=== PATIENT | male | born 1965 | race Caucasian/White ===

== ENCOUNTER 2019-12-31 09:37 | Emergency (ER) | payer BC, SELFPAY ==
[2019-12-31 09:46] VITALS: BP 134/86; PULSE 71; RESP 20; TEMP 36.2; O2SAT 98
--- NOTE | 2019-12-31 10:22 | ED.EAR ---
HPI - Ear Problem General Chief complaint: Ear Stated complaint: Left ear pain Time Seen by Provider: 12/31/19 10:17 Source: patient and RN notes reviewed Mode of arrival: ambulatory Limitations: no limitations History of Present Illness HPI Narrative: Patient presents today complaining of left ear pain x2 days. He describes the pain as intermittent and stabbing. Denies decreased hearing or drainage. Currently rates his pain 5/10 and has been taking Tylenol with little relief. MD Complaint: ear pain Related Data Allergies Allergy/AdvReac Type Severity Reaction Status Date / Time No Known Allergies Allergy Unverified 09/07/17 14:47 Review of Systems Review of Systems: Narrative: CONSTITUTIONAL: Denies body aches, fever, chills, or sweats. EYES: Denies visual changes, redness, or discharge. ENT: Denies rhinorrhea, congestion, sore throat. + Left ear pain CARDIOVASCULAR: Denies chest pain, palpitations, or edema. RESPIRATORY: Denies cough or dyspnea. GASTROINTESTINAL: Denies abdominal pain, nausea, vomiting, or diarrhea. GENITOURINARY: Denies dysuria or hematuria. SKIN: Denies rash, itching, or wounds. MUSCULOSKELETAL: Denies back pain, joint pain, or myalgia. NEUROLOGIC: Denies headache, numbness, tingling, or weakness. PSYCH: Denies depression or anxiety. PMFSH Comments At time of signature, I have reviewed and agree with nursing past medical, surgical, social and family history unless otherwise noted. Please see nursing chart for further information. There is no relevant family history pertinent to the presenting complaint Exam Narrative: Exam Narrative: GENERAL: Well-appearing, well-nourished, and in no acute distress. HEAD: Normocephalic, atraumatic. EYES: EOMI. No redness or drainage. Conjunctivae normal. ENT: Mucous membranes pink and moist. Right TM and canal normal. Left TM erythematous and bulging with purulent material. NECK: Normal AROM. Supple. No lymphadenopathy. CHEST: No respiratory distress. EXTREMITIES: Normal range of motion. No edema. SKIN: Warm, dry, no rash. Capillary refill normal. Normal skin turgor. NEURO: No focal deficits. Alert and oriented x3. Gait steady. PSYCH: Normal affect. No signs of depression or anxiety. Course Vital Signs Vital signs: Vital Signs Temperature 97.2 F L 12/31/19 09:46 Pulse Rate 71 12/31/19 09:46 Respiratory Rate 20 12/31/19 09:46 Blood Pressure 134/86 12/31/19 09:46 Pulse Oximetry 98 12/31/19 09:46 Temperature 97.2 F L 12/31/19 09:46 Pulse Rate 71 12/31/19 09:46 Respiratory Rate 20 12/31/19 09:46 Blood Pressure 134/86 12/31/19 09:46 Pulse Oximetry 98 12/31/19 09:46 Reviewed. Pt has been instructed to follow up with his PCP regarding his elevated blood pressure today. Medical Decision Making Differential Diagnosis Differential Diagnosis: Otitis media, otitis externa, ruptured TM, serous otitis, eustachian tube dysfunction, cerumen impaction Vital Signs Vital Signs: Vital Signs Temperature 97.2 F L 12/31/19 09:46 Pulse Rate 71 12/31/19 09:46 Respiratory Rate 20 12/31/19 09:46 Blood Pressure 134/86 12/31/19 09:46 Pulse Oximetry 98 12/31/19 09:46 Temperature 97.2 F L 12/31/19 09:46 Pulse Rate 71 12/31/19 09:46 Respiratory Rate 20 12/31/19 09:46 Blood Pressure 134/86 12/31/19 09:46 Pulse Oximetry 98 12/31/19 09:46 Critical Care Time Critical Care Time Critical Care Time: No Discharge Plan Discharge Clinical Impression: Otitis media Qualifiers: Otitis media type: suppurative Chronicity: acute Laterality: left Recurrence: not specified as recurrent Spontaneous tympanic membrane rupture: without spontaneous rupture Qualified Code(s): H66.002 - Acute suppurative otitis media without spontaneous rupture of ear drum, left ear Patient Disposition: Home, Self-Care Condition: Stable Instructions: Antibiotic Form, Ear Infection (ED) Additional Instructions: Please ta
== END 2019-12-31 10:31 | disposition home or self-care (01) ==
PROVIDERS: Emergency Provider Nurse Practitioner
DX: H66.002 Acute suppurative otitis media without spontaneous rupture of ear drum, left ear (principal); I10 Essential (primary) hypertension; E11.9 Type 2 diabetes mellitus without complications; Z79.84 Long term (current) use of oral hypoglycemic drugs
CPT/HCPCS: 99213; G0463

== ENCOUNTER 2022-12-07 17:17 | Emergency (ER) | payer OTHER, SELFPAY ==
--- NOTE | ~2022-12-07 | XR_ITS ---
EXAM: XR foot LT min 3V DATE: 12/07/2022 18:48 HISTORY: pain in bottom of foot . COMPARISON: None available. FINDINGS: Normal mineralization. No fracture or dislocation. No lytic or blastic lesion. Mild scatte red degenerative changes. Achilles and plantar enthesopathy. No erosion or periosteal change. Soft ti ssues within normal limits. IMPRESSION: No acute osseous finding in the left foot. Reviewed, dictated and finalized at location K.
[2022-12-07 17:22] VITALS: BP 150/83; PULSE 67; RESP 18; TEMP 36.5; O2SAT 98
--- NOTE | 2022-12-07 18:05 | ED.GENADULT ---
HPI - General Adult General Chief complaint: Extremity Problem,Nontraumatic <Omid Steel CRISTOFER Ramirez BC - Last Filed: 12/07/22 18:23> Stated complaint: left foot pain <Omid Steel Ashley YANICK CLEVELAND - Last Filed: 12/07/22 18:23> Time Seen by Provider: 12/07/22 18:46 <Omid Steel CRISTOFER Ramirez BC - Last Filed: 12/07/22 18:23> Source: patient <MIRA HooverYANICK Oliver - Last Filed: 12/07/22 18:23> Mode of arrival: ambulatory <Omid Steel Ashley YANICK CLEEVLAND - Last Filed: 12/07/22 18:23> Limitations: no limitations <Omid Ramirez YANICK CLEVELAND - Last Filed: 12/07/22 18:23> History of Present Illness HPI narrative: Pt presents for evaluation of left foot pain for the past two weeks. 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 He cannot remember a specific injury but states he very well could have hit his foot or sustained an injury without knowledge of doing so. Pain is intermittent, currently rated 4/10 severity but increases to a 10/10 at times. Reports a dull aching sensation in the affected area. Denies any swelling. No loss of range of motion. Movement seems to worsen his pain. He has taken tylenol for his symptoms. He is diabetic. He does not check his BS at home. Denies numbness or tingling. Denies history of peripheral neuropathy. <Omid Steel CRISTOFER Ramirez BC - Last Filed: 12/07/22 18:23> Related Data Home medications: Home Medications Medication Instructions Recorded Confirmed aspirin 81 mg tablet,delayed 81 mg PO DAILY 12/31/19 12/07/22 release (Adult Low Dose Aspirin) atorvastatin 80 mg tablet 80 mg PO DAILY 12/31/19 12/07/22 fenofibrate nanocrystallized 145 145 mg PO DAILY 12/31/19 12/07/22 mg tablet metformin 500 mg tablet 750 mg PO BID 12/31/19 12/07/22 nitroglycerin 0.4 mg sublingual 0.4 mg sublingual DAILY PRN Chest 12/31/19 12/07/22 tablet Pain empagliflozin 25 mg tablet 25 mg PO DAILY 12/07/22 12/07/22 (Jardiance) insulin glargine 100 50 unit subcut QAM 12/07/22 12/07/22 unit-lixisenatide 33 mcg/mL subcutaneous pen (Soliqua 100/33) lisinopril 5 mg tablet 5 mg PO DAILY 12/07/22 12/07/22 metoprolol tartrate 25 mg tablet 25 mg PO BID 12/07/22 12/07/22 ticagrelor 90 mg tablet (Brilinta) 90 mg PO Q12H 12/07/22 12/07/22 <CRISTOFER Hoover BC - Last Filed: 12/07/22 18:23> Allergies/adverse reactions: Allergies Allergy/AdvReac Type Severity Reaction Status Date / Time No Known Allergies Allergy Verified 12/07/22 17:39 <CRISTOFER Hoover BC - Last Filed: 12/07/22 18:23> Review of Systems Review of Systems: CONSTITUTIONAL: Denies fever, chills, or sweats. EYES: Denies visual changes, redness, or discharge. ENT: Denies rhinorrhea, congestion, sore throat, or otalgia. CARDIOVASCULAR: Denies chest pain, palpitations, or edema. RESPIRATORY: Denies cough or dyspnea. GASTROINTESTINAL: Denies abdominal pain, nausea, vomiting, or diarrhea. GENITOURINARY: Denies dysuria or hematuria. SKIN: Denies rash or itching. MUSCULOSKELETAL: Reports left foot pain. Denies back pain or other arthralgias NEUROLOGIC: Denies headache, numbness, dizziness, or weakness. PSYCHIATRIC: Denies anxiety or depression. <CRISTOFER Hoover BC - Last Filed: 12/07/22 18:23> [facility] Past Medical History Medical History: Medical History (Updated 12/07/22 @ 18:23 by CRISTOFER Hoover BC) Coronary artery disease Diabetes Hyperlipidemia Hypertension <CRISTOFER Hoover BC - Last Filed: 12/07/22 18:23> Surgical History Surgical History: Surgical History H/O heart artery stent <CRISTOFER Hoover BC - Last Filed: 12/07/22 18:23> Family History Family History: Family History Mother Family history non-contributory <CRISTOFER Hoover BC - Last Filed: 12/07/22 18:23> Social History
[2022-12-07 18:16] LABS: Glucose Point of Care 304 mg/dl (65-105)
--- NOTE | 2022-12-07 18:18 | PC.NURSE ---
1818-- BLOOD SUGAR 304. PT D/C TO [facility] FOR XRAY.
== END 2022-12-07 19:06 | disposition home or self-care (01) ==
PROVIDERS: Nurse Practitioner; Emergency Provider Nurse Practitioner Family; PCP Family Medicine
DX: S96.912A Strain of unspecified muscle and tendon at ankle and foot level, left foot, initial encounter (principal); X58.XXXA Exposure to other specified factors, initial encounter; I25.10 Atherosclerotic heart disease of native coronary artery without angina pectoris; E11.9 Type 2 diabetes mellitus without complications; Z79.4 Long term (current) use of insulin; E78.5 Hyperlipidemia, unspecified; I10 Essential (primary) hypertension; Z79.82 Long term (current) use of aspirin
CPT/HCPCS: 73630; 82948; 99213; G0463

== ENCOUNTER 2023-07-26 11:44 | Emergency (ER) | payer OTHER, SELFPAY ==
[2023-07-26 11:55] VITALS: BP 134/85; PULSE 90; RESP 20; TEMP 37.6; O2SAT 99
--- NOTE | 2023-07-26 12:17 | ED.URI ---
HPI - URI/Sore Throat General Chief Complaint: Upper Respiratory Infection Stated Complaint: Cough/Fever/Abdominal Pain History of Present Illness HPI Narrative: Patient presents with a 3 day history of fatigue and generalized body aches. No shortness of breath no chest pain. Patient states he is pushing fluids and taking ibuprofen for his body aches. Related Data Home Medications Medication Instructions Recorded Confirmed aspirin 81 mg tablet,delayed 81 mg PO DAILY 12/31/19 07/26/23 release (Adult Low Dose Aspirin) atorvastatin 80 mg tablet 80 mg PO DAILY 12/31/19 07/26/23 fenofibrate nanocrystallized 145 145 mg PO DAILY 12/31/19 07/26/23 mg tablet metformin 500 mg tablet 750 mg PO BID 12/31/19 07/26/23 nitroglycerin 0.4 mg sublingual 0.4 mg sublingual DAILY PRN Chest 12/31/19 07/26/23 tablet Pain empagliflozin 25 mg tablet 25 mg PO DAILY 12/07/22 07/26/23 (Jardiance) insulin glargine 100 50 unit subcut QAM 12/07/22 07/26/23 unit-lixisenatide 33 mcg/mL subcutaneous pen (Soliqua 100/33) lisinopril 5 mg tablet 5 mg PO DAILY 12/07/22 07/26/23 metoprolol tartrate 25 mg tablet 25 mg PO BID 12/07/22 07/26/23 ticagrelor 90 mg tablet (Brilinta) 90 mg PO Q12H 12/07/22 07/26/23 Allergies Allergy/AdvReac Type Severity Reaction Status Date / Time No Known Allergies Allergy Verified 07/26/23 12:10 Review of Systems Review of Systems: CONSTITUTIONAL: Denies chills, or sweats. Reports fever and generalized body aches EYES: Denies visual changes, redness, or discharge. ENT: Denies otalgia. Reports nasal congestion runny nose and sore throat CARDIOVASCULAR: Denies chest pain, palpitations, or edema. RESPIRATORY: Denies dyspnea. Reports occasional cough GASTROINTESTINAL: Denies abdominal pain, nausea, vomiting, or diarrhea. GENITOURINARY: Denies dysuria or hematuria. SKIN: Denies rash or itching. MUSCULOSKELETAL: Denies back pain, joint pain, or myalgia. Reports generalized body aches NEUROLOGIC: Denies headache, numbness, or weakness. PSYCHIATRIC: Denies anxiety or depression. [facility] Past Medical History Medical History (Updated 07/26/23 @ 12:21 by MIRA GalanP) Coronary artery disease Diabetes Hyperlipidemia Hypertension Surgical History Surgical History H/O heart artery stent Family History Family History Mother Family history non-contributory Social History Social History Smoking status: Never smoker Substance use: never Living arrangements: with family Gender identity (if verbalized by the patient): Male Spiritual care concerns: No Comments At time of signature, agree with nursing past medical, surgical, social and family history. There is no relevant family history pertinent to the presenting complaint Exam Narrative: The patient is a well-developed, well-nourished in no acute distress. SKIN: Skin is warm and dry without erythema, swelling or exudate. There is good turgor. No tenting. HEAD: Atraumatic. Normocephalic. No temporal or scalp tenderness. EYES: Moist and bright. Sclera and conjunctivae normal. No discharge. PERRLA. Extraocular motions intact. Gross visual acuity intact. EARS: Pinna is normal shape and contour. Clear external auditory canals. TM pearly travis with good cone of light, no erythema or suppuration. Bilateral cerumen noted no gross hearing deficit. NOSE: pink, moist mucosa with good air movement. Clear rhinorrhea without nasal flaring. Septum midline. Mouth: moist mucous membranes. THROAT; mild erythema noted to posterior oropharynx with moderate postnasal drainage. Without exudate or ulceration.. Uvula midline. Normal movement of soft palate. NECK: Supple and nontender with full range of motion without discomfort. No meningeal signs. LUNGS: Equal and bilateral sophie
== END 2023-07-26 12:24 | disposition home or self-care (01) ==
PROVIDERS: Emergency Provider Nurse Practitioner Family
DX: J11.1 Influenza due to unidentified influenza virus with other respiratory manifestations (principal); E11.9 Type 2 diabetes mellitus without complications; I25.10 Atherosclerotic heart disease of native coronary artery without angina pectoris; E78.5 Hyperlipidemia, unspecified; I10 Essential (primary) hypertension; Z79.82 Long term (current) use of aspirin; Z79.4 Long term (current) use of insulin; Z79.899 Other long term (current) drug therapy; Z20.822 Contact with and (suspected) exposure to COVID-19
CPT/HCPCS: 87426; 87804; 99213; C9803; G0463

== ENCOUNTER 2024-08-10 14:23 | Emergency (ER) | payer OTHER, SELFPAY ==
[2024-08-10 14:29] VITALS: BP 133/81; PULSE 78; RESP 16; TEMP 36.6; O2SAT 98
[2024-08-10 15:04] LABS: EDCOVIDSCREEN Negative (Negative); EDINFLUASCREEN Negative (Negative); EDINFLUBSCREEN Negative (Negative)
--- NOTE | 2024-08-10 15:21 | ED.GENADULT ---
HPI - General Adult General Chief complaint: Upper Respiratory Infection Stated complaint: Fever/Cough/Runny Nose Source: patient Mode of arrival: ambulatory Limitations: no limitations History of Present Illness HPI narrative: Patient presents for evaluation of sick symptoms for last 2 days. Symptoms include sinus congestion, thick green drainage from the nares, fever, cough and sore throat 2/2 coughing. No nausea, vomiting or diarrhea. Several coworkers have been sick recently. He is not taking any medications to assist with his symptoms. He does not smoke. Related Data Home Medications ?Medication ?Instructions ?Recorded ?Confirmed ?Last Taken ?Type aspirin 81 mg tablet,delayed 81 mg PO DAILY 12/31/19 08/10/24 Unknown History release (Adult Low Dose Aspirin) atorvastatin 80 mg tablet 80 mg PO DAILY 12/31/19 08/10/24 Unknown History fenofibrate nanocrystallized 145 145 mg PO DAILY 12/31/19 08/10/24 Unknown History mg tablet metformin 500 mg tablet 750 mg PO BID 12/31/19 08/10/24 Unknown History nitroglycerin 0.4 mg sublingual 0.4 mg sublingual DAILY PRN Chest 12/31/19 08/10/24 Unknown History tablet Pain empagliflozin 25 mg tablet 25 mg PO DAILY 12/07/22 08/10/24 Unknown History (Jardiance) insulin glargine 100 50 unit subcut QAM 12/07/22 08/10/24 Unknown History unit-lixisenatide 33 mcg/mL subcutaneous pen (Soliqua 100/33) lisinopril 5 mg tablet 5 mg PO DAILY 12/07/22 08/10/24 Unknown History metoprolol tartrate 25 mg tablet 25 mg PO BID 12/07/22 08/10/24 Unknown History ticagrelor 90 mg tablet (Brilinta) 90 mg PO Q12H 12/07/22 08/10/24 Unknown History ezetimibe 10 mg tablet mg 08/10/24 Unknown History insulin glargine 100 unit/mL (3 unit subcut 08/10/24 Unknown History mL) subcutaneous pen (Lantus Solostar U-100 Insulin) lisinopril 10 mg tablet mg 08/10/24 Unknown History metformin 750 mg tablet,extended mg PO 08/10/24 Unknown History release 24 hr metoprolol succinate 50 mg mg PO 08/10/24 Unknown History tablet,extended release 24 hr nystatin 100,000 unit/gram topical topical 08/10/24 Unknown History cream semaglutide 2 mg/dose (8 mg/3 mL) mg subcut 08/10/24 Unknown History subcutaneous pen injector (Ozempic) Allergies Allergy/AdvReac Type Severity Reaction Status Date / Time No Known Allergies Allergy Verified 08/10/24 14:31 Review of Systems Review of Systems: CONSTITUTIONAL: Reports fever. Denies chills, or sweats. EYES: Denies visual changes, redness, or discharge. ENT: Reports sinus congestion, thick green drainage from nares and sore throat 2/2 coughing CARDIOVASCULAR: Denies chest pain, palpitations, or edema. RESPIRATORY: Reports cough. Denies SOB GASTROINTESTINAL: Denies abdominal pain, nausea, vomiting, or diarrhea. GENITOURINARY: Denies dysuria or hematuria. SKIN: Denies rash or itching. MUSCULOSKELETAL: Denies back pain, joint pain, or myalgia. NEUROLOGIC: Denies headache, numbness, dizziness, or weakness. PSYCHIATRIC: Denies anxiety or depression. PMFSH Past Medical History Medical History Coronary artery disease Hyperlipidemia Hypertension Diabetes Surgical History Surgical History H/O heart artery stent Family History Family History Mother Family history non-contributory Social History Social History Smoking status: Never smoker Substance use: never Living arrangements: with family Gender identity (if verbalized by the patient): Male Spiritual care concerns: No Exam Narrative: GENERAL: Well-appearing, well-nourished, and in no acute distress. HEAD: Normocephalic, atraumatic. EYES: PERRLA and EOMI. ENT: Bilateral maxillary sinus tenderness. Thick yellow drainage in the nares. Oropharynx without tonsillar hypertrophy exudate or other lesions. Bilateral TMs pearly guzman nonbulging NECK: Supple. No adenopathy or masses. No carotid bruits or JVD CHEST: Clear to auscultation. No respiratory distress. No wheezes rales or rhonchi HEART: Regular rate and rhythm. No murmur heard. Normal peripheral pulses. ABDOMEN: Soft, nontender, nondistended, normal active bowel sounds. EXTREMITIES: Normal range of motion. No edema. SKIN: Warm, dry, no rash. NEURO: No focal deficits. Alert and oriented x3. PSYCH: Normal mood and affect. Course Course Emergency Course: This is a 58-year-old male who presented for evaluation of sinus symptoms. COVID and influenza negative. He meets criteria for bacterial sinusitis based upon mucopurulent nature of drainage and presence of fever. Will dc with augmentin. Increase hydration. [id number] agents for symptom management. Follow up with primary provider. Go to the ER for worsening symptoms. Patient in agreement with plan of care. Level of Care: Express Care Visit Vital Signs Vital signs: Vital Signs Temperature 36.6 C 08/10/24 14:29 Pulse Rate 78 08/10/24 14:29 Respiratory Rate 16 08/10/24 14:29 Blood Pressure 133/81 08/10/24 14:29 Pulse Oximetry 98 08/10/24 14:29 Oxygen Delivery Room Air 08/10/24 14:29 Temperature 36.6 C 08/10/24 14:29 Pulse Rate 78 08/10/24 14:29 Respiratory Rate 16 08/10/24 14:29 Blood Pressure 133/81 08/10/24 14:29 Pulse Oximetry 98 08/10/24 14:29 Oxygen Delivery Room Air 08/10/24 14:29 Medical Decision Making Vital Signs Vital Signs: Vital Signs Temperature 36.6 C 08/10/24 14:29 Pulse Rate 78 08/10/24 14:29 Respiratory Rate 16 08/10/24 14:29 Blood Pressure 133/81 08/10/24 14:29 Pulse Oximetry 98 08/10/24 14:29 Oxygen Delivery Room Air 08/10/24 14:29 Temperature 36.6 C 08/10/24 14:29 Pulse Rate 78 08/10/24 14:29 Respiratory Rate 16 08/10/24 14:29 Blood Pressure 133/81 08/10/24 14:29 Pulse Oximetry 98 08/10/24 14:29 Oxygen Delivery Room Air 08/10/24 14:29 Lab Data Labs: Lab Results 08/10/24 Range/Units 15:03 POC Influenza A Ag Negative (Negative) POC Influenza B Ag Negative (Negative) POC SARS CoV-2 Ag Negative (Negative) Discharge Plan Discharge Clinical Impression: Sinusitis Patient Disposition: Home, Self-Care Condition: Stable Instructions: Sinusitis (ED) Patient Language: Macedonian Prescriptions: New amoxicillin-pot clavulanate 875-125 mg tablet 1 tablet PO Q12H Qty: 20 0RF No Action metoprolol tartrate 25 mg Tablet 25 mg PO BID Soliqua 100/33 100 unit-33 mcg/mL Insulin Pen 50 unit SUBCUT QAM lisinopril 5 mg Tablet 5 mg PO DAILY Brilinta 90 mg Tablet 90 mg PO Q12H Jardiance 25 mg Tablet 25 mg PO DAILY metformin 500 mg tablet 750 mg PO BID atorvastatin 80 mg tablet 80 mg PO DAILY aspirin [Adult Low Dose Aspirin] 81 mg Tablet,Delayed Release (Dr/Ec) 81 mg PO DAILY nitroglycerin 0.4 mg tablet, sublingual 0.4 mg sublingual DAILY PRN (Reason: Chest Pain) fenofibrate nanocrystallized 145 mg tablet 145 mg PO DAILY metoprolol succinate 50 mg tablet extended release 24 hr PO nystatin 100,000 unit/gram cream TOPICAL lisinopril 10 mg tablet ezetimibe 10 mg tablet metformin 750 mg tablet extended release 24 hr PO insulin glargine [Lantus Solostar U-100 Insulin] 100 unit/mL (3 mL) insulin pen SUBCUT Ozempic 2 mg/dose (8 mg/3 mL) pen injector SUBCUT Follow-up/Referrals: Chetan,Medhat Glover MD [Primary Care Provider] - Stand Alone Forms: Work/School Release IP Time of Disposition: 15:19
--- OUTSIDE RECORDS SUMMARY | 2024-08-12 02:03 | XMS_ITS | Encounter Summary ---
Author Organization [facility] Address [address] [place] [address] Phone Care Team Providers Care Oral Pathologist Name Role Phone Medhat Benton MD Primary Care Provider Griffin Miles MD Unavailable Joao Basilio MD Unavailable Unabrant labcris Reason for Visit * Reason Comments Medication Refill Encounter Details Date Type Department Care Team (Late st Contact Info) Description 11/02/2019 Refill [facility] [address] [place] [address] Medhat Benton MD [address] [address] Medication Refill Social History Tobacco Use Types Packs/Day Years Used Date Smoking Tobacco: Never Smokeless Tobacco: Current Chew Comments:started chew @ 7yo. 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 No / Unsure 11/03/2019 4:50 PM CDT documented as of this encounter Miscellaneous Notes * Telephone Encounter - Keily Bansal, RN - 11/03/2019 8:14 AM CDT Requested Prescriptions Pending Prescriptions Disp Refills glyBURIDE (DIABETA) 5 MG Tablet [Pharmacy Med Name: GLYBURIDE 5MG TABLETS] 120 Tab 0 Sig: TAKE 2 TABLETS BY MOUTH TWICE DAILY WITH MEALS Endocrinology: Diabetes - Sulfonylureas Failed - 11/02/2019 8:29 PM Failed - Valid encounter within last 12 months Past Office Visits Recent Outpatient Visits 1 year ago Type 2 diabetes mellitus with hyperglycemia, without long-term current use of insulin (HCC) [facility] PHYSICIAN [facility] Alexei Dewitt APN, ACCOUNTANT CONTROLLER 2 years ago Screening for colon cancer [facility] Medhat Benton MD 2 years ago Encounter for immunization [facility] Medhat Benton MD 3 years ago Acute otitis externa of left ear, unspecified type [facility] Megan Swanson PAC 3 years ago Hyperlipidemia, unspecified hyperlipidemia type [facility] Medhat Benton MD Upcoming Appointments Failed - Last BP in normal range BP Readings from Last 1 Encounters: 07/08/18 144/84 documented in this encounter Plan of Treatment Upcoming Encounters Date Type Department Care Team (Late st Contact Info) Description 09/06/2024 9:45 AM NEONATAL CRITICAL CARE NURSE Office Visit [facility] [address] [place] [address] Medhat Benton MD [address] [address] documented as of this encounter Visit Diagnoses Not on filedocumented in this encounter Additional Health Concerns Infection Onset Date Last Indicated Resolved Time COVID - 19 06/02/2021 06/02/2021 06/22/2021 12:1 9 AM NEONATAL CRITICAL CARE NURSE Assessment Noted Time PHQ-9 Depression Total Score: 0 09/11/19 18 4:12 PM NEONATAL CRITICAL CARE NURSE documented as of this encounter Care Teams Oral Pathologist Relationship Specialty Start Date End Date Medhat Benton MD [address] [facility] [address] [place] [address] PCP - General Family Medicine 07/05/15 Griffin Miles MD [address] [facility] [address] [place] [address] Consulting Physician Colon and Rectal Surgery 03/12/22 Joao Basilio MD [address] [address] Consulting Physician Cardiovascular Disease - Cardiology 03/27/22 documented as of this encounter
--- OUTSIDE RECORDS SUMMARY | 2024-08-12 02:03 | XMS_ITS | Referral Summary ---
Author Organization [facility] Address [address] [place] [address] Care Team Providers Care Historic Sites Supervisor Name Role Phone Medhat Benton MD Primary Care Provider [phone] Source Comments [facility],non-owned Affiliates and Associated Physician Practices is amultiple site organization consisting of ambulatory clinics and hospital sitesin [place], [place], [place] and [place]. This disclosure is being madepursuant to the Care Everywhere program and may not contain all information available regarding this patient. Last updated 18.[facility] Encounters Date Type Department Care Team Description 08/05/2024 Telephone [facility] - Cardiopulmonary Rehab [address] [place] [id number] Daquan Jefferson RN Cardiac Rehab 07/27/2024 Telephone [facility] - Cardiopulmonary Rehab [address] [place] [address] [phone] Daquan Jefferson RN Cardiac Rehab from Last 3 Months Allergies No known active allergies Medications * Be aware that medications may not be up to date on this document. Alwaysverify current medications with the patient. Medication Sig Dispensed Refills Start Date End Date Status insulin glargine-lixisena tide (Soliqua) 100-33 UNT-MCG/ML pen Inject 50 (fifty) Units subcutaneously once daily Active aspirin (Aspirin) 81 MG chew tablet Take 1 (one) tablet by mouth once daily Active empagliflozin (Jardiance) 25 MG tablet Take 1 (one) tablet by mouth once daily Active lisinopril (Prinivil; Zestril) 5 MG tablet Take 2 (two) tablets by mouth once daily Active metoprolol tartrate IR (Lopressor) 25 MG tablet Take 2 (two) tablets by mouth 2 times daily Active atorvastatin (Lipitor) 80 MG tablet Take 1 (one) tablet by mouth at bedtime Active metFORMIN ER 24hr (Glucophage XR) 750 MG tablet Take 1 (one) tablet by mouth 2 times daily 08/07/2023 Active fenofibrate (Tricor) 145 MG tablet Take 1 (one) tablet by mouth once daily for 90 days 30 tablet 2 08/06/2023 Active ticagrelor (Brilinta) 90 MG tablet Take 1 (one) tablet by mouth 2 times daily 60 tablet 3 08/06/2023 Active Semaglutide(0.25 or 0.5MG/DOS) 2 MG/1.5ML Solution Pen-injector Inject 0.25 (one-quarter) mg subcutaneously every 7 days Active Active Problems Problem Noted Date Diagnosed Date ST elevation myocardial infa rction (STEMI), unspecified artery 08/03/2023 Chest pain, unspecified type 08/03/2023 Hypertension, unspecified type 08/03/2023 Coronary artery disease invo lving [place] coronary artery of [place] heart without angina pectoris 08/03/2023 Social History Tobacco Use Types Packs/Day Years Used Date Smoking Tobacco: Never Assessed AUDIT-C Answer Date Recorded Q1: How often do you have a drink containing alcohol? Never 08/04/2023 Q2: How many drinks containi ng alcohol do you have on a typical day when you are drinking? Patient does not drink Q3: How often do you have si x or more drinks on one occasion? Never 08/04/2023 Overall Financial Resource Strain (CARDIA) Answe r Date Recorded How hard is it for you to pa y for the very basics like food, housing, medical care, and heating? Very hard 08/04/2023 [facility] [place] [facility] Occupat ional [facility] - Occupational Stress Questionnaire Answer Date Recorded Do you feel stress - tense, restless, nervous, or anxious, or unable to sleep at night because your mind is troubled all the time - these days? Not at all 08/04/2023 Hunger Vital Sign Answer Date Recorded Within the past 12 months, y ou worried that your food would run out before you got the money to buy more. Never true 08/04/19 24 Within the past 12 months, t he food you bought just didn't last and you didn't have money to get more. Often true 08/04/2023 PRAPARE - Transportation Answer Date Re corded In the past 12 months, has l ack of transportation kept you from medical appointments or from getting medications? No 07/20 In the past 12 months, has l ack of transportation kept you from meetings, work, or from getting things needed for daily living? No 08/04/2023 Housing Stability Vital Sign Answer Rian e Recorded In the last 12 months, was t here a time when you were not able to pay the mortgage or rent on time? No 08/04/2023 Number of Places Lived in the Last Year Not on f ile 08/04/2023 In the last 12 months, was t here a time when you did not have a steady place to sleep or slept in a penitentiary (including now)? No 08/04/2023 Sex and Gender Information Value Date Recorded Sex Assigned at Not on file Gender Identity Not on file Sexual Orientation Not on file Last Filed Vital Signs Vital Sign Reading Time Taken Comments Blood Pressure 124/74 02/12/2024 8:54 AM CDT Pulse 86 08/06/2023 7:35 AM CLOTH EXAMINER MACHINE Temperature 37.1 ??C (98.8 ??F) 08/06/2023 7:35 AM CS T Respiratory Rate 18 08/06/2023 7:35 AM CLOTH EXAMINER MACHINE Oxygen Saturation 96% 08/06/2023 7:35 AM CLOTH EXAMINER MACHINE Inhaled Oxygen Concentration - - Weight 94.3 kg (207 lb 12.8 oz) 02/12/2024 8:48 AM CDT Height 172.7 cm (5' 8 ) 02/12/2024 8:48 AM CDT Body Mass Index 31.6 02/12/2024 8:48 AM CDT Functional Status Functional Status Response Date of Assess ment Is person deaf or have serious hearing difficult y? No 08/04/2023 Is person blind or have serious difficulty seein g? No 08/04/2023 Does person have serious dif ficulty walking/climbing stairs? No 08/04/2023 Does person have difficulty dressing/bathing? No 08/04/2023 Does person have difficulty doing errands alone? No 08/04/2023 Cognitive Status Response Date of Assessm ent Does person have difficulty concentrating/remembering/making decisions? No 08/04/2023 Plan of Treatment Not on file Advance Directives * Full Code (Latest Code Status on File) Date Activated Date Inactivated Comments 08/03/2023 11:50 PM 08/06/2023 4:22 PM * Full Code Date Activated Date Inactivated Comments 08/03/2023 11:48 PM 08/03/2023 11:50 PM Care Teams Historic Sites Supervisor Relationship Specialty Start Date End Date Medhat Benton MD [address] [id number] PCP - General Family Medicine 08/03/23
--- OUTSIDE RECORDS SUMMARY | 2024-08-12 02:03 | XMS_ITS | Clinical Summary ---
Author Organization [email or web address] Address [address] [place] [address] Care Team Providers Care Sheriff Sergeant Name Role Phone Medhat Benton MD Primary Care Provider [phone] Source Comments [email or web address],non-owned Affiliates and Associated Physician Practices is amultiple site organization consisting of ambulatory clinics and hospital sitesin [place], [place], [place] and [place]. This disclosure is being madepursuant to the Care Everywhere program and may not contain all information available regarding this patient. 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 Very hard 08/04/2023 [facility] [place] of Occupat ional Health - Occupational Stress [...] place to sleep or slept in a fpc (including now)? No 08/04/2023 Sex and Gender Information Value Date Recorded Sex Assigned at Not on file Gender Identity Not on file Sexual Orientation Not on file Last Filed Vital Signs Vital Sign Reading Time Taken Comments Blood Pressure 124/74 02/12/2024 8:54 AM CDT Pulse 86 08/06/2023 7:35 AM NEWS INTERN Temperature 37.1 ??C (98.8 ??F) 08/06/2023 7:35 AM CS T Respiratory Rate 18 08/06/2023 7:35 AM NEWS INTERN Oxygen Saturation 96% 08/06/2023 7:35 AM NEWS INTERN Inhaled Oxygen Concentration - - Weight 94.3 kg (207 lb 12.8 oz) 02/12/2024 8:48 AM CDT Height 172.7 cm (5' 8 ) 02/12/2024 8:48 AM CDT Body Mass Index 31.6 02/12/2024 8:48 AM CDT Plan of Treatment Health Maintenance Due Date Last Done Comments COLOGUARD (AGES 45-75) - COL ON CA SCREENING 1967 COLON MONITORING 1967 COLONOSCOPY - COLON CA SCREENING 1967 CT COLONOGRAPHY - COLON CA SCREENING 1967 Colorectal Cancer Screening 1967 FIT - COLON CA SCREENING 1967 FLEX SIG - COLON CA SCREENING 1967 HIV SCREENING 1982 HEPATITIS C SCREENING 08/31/1985 DTAP/TDAP/TD VACCINES (1 - Tdap) 1986 HEPATITIS B VACCINE (1 of 3 - 19+ 3-dose series) 1986 PNEUMOCOCCAL VACCINE 50+ (1 of 1 - PCV) 2017 ZOSTER VACCINE (1 of 2) 2017 COVID-19 VACCINE (4 - 2023-2 5 season) 2024 05/28/2023, 08/18/2021, 10/13/2020 INFLUENZA VACCINE (#1) 2024 7, 09/24/2016 DEPRESSION SCREENING 07/20/2024 HIB VACCINE Aged Out No longer eligi ble based on patient's age to complete this topic HPV VACCINE Aged Out No longer eligi ble based on patient's age to complete this topic MENINGOCOCCAL (Group B) VACCINE Aged Out No longer eligible b ased on patient's age to complete this topic MENINGOCOCCAL VACCINE Aged Out No shu abner eligible based on patient's age to complete this topic PNEUMOCOCCAL VACCINE Aged Out No long er eligible based on patient's age to complete this topic Advance Directives * Full Code (Latest Code Status on File) Date Activated Date Inactivated Comments 08/03/2023 11:50 PM 08/06/2023 4:22 PM * Full Code Date Activated Date Inactivated Comments 08/03/2023 11:48 PM 08/03/2023 11:50 PM Care Teams Sheriff Sergeant Relationship Specialty Start Date End Date Medhat Benton MD [address] [place] [address] PCP - General Family Medicine 08/03/23
--- OUTSIDE RECORDS SUMMARY | 2024-08-12 02:03 | XMS_ITS | CONTINUITY OF CARE DOCUMENT ---
Author Name princess sánchez Address Unknown Organization [facility] Address [id number] [place] [address] Phone [phone] Care Team Providers Care Kitchen Manager Name Role Phone Constantine Bardales MD Unavailable REYNALDO FIELDS MD Unavailable REYNALDO FIELDS MD Unavailable PROBLEMS Condition Status Date Provider Notes Cardiology examination active Constantine miller MD CAD active Constantine Bardaels MD Hyperlipidemia active Constantine Bardales MD Diabetes mellitus, type 2 active Constantine mota MD Obesity active Constantine Bardales MD PVC's active Constantine Bardales MD Abnormal cardiovascular stre ss test completed - Constantine Bardales MD Body mass index (BMI) 32.0-32.9, adult active Constantine Bardales MD ENCOUNTERS Date Type Provider Location Encounter Diag nosis - In-person encounter Office Visit Constantine Bardales MD [facility] - In-person encounter Office Visit Constantine Bardales MD [facility] - In-person encounter Office Visit Constantine Bardales MD [facility] Abnormal cardiovascular stress testBody mass index (BMI) 32.0-32.9, adult - In-person encounter Office Visit Constantine Bardales MD [facility] - In-person encounter Office Visit Constantine Bardales MD [facility] - In-person encounter Office Visit Constantine Bardales MD [facility] - In-person encounter Office Visit Constantine Bardales MD [facility] - In-person encounter Office Visit Constantine Bardales MD [facility] ObesityPVC's - In-person encounter Office Visit Constantine Bardales MD [facility] Cardiology examinationCADHyperlipidemiaDiabetes mellitus, type 2 VITAL SIGNS Date Observation Value Provider Body Mass Index (Ratio) 32.38 kg/m2 Kadeem Bardales MD blood pressure, diastolic 83 mm[Hg] Miri jesusangela Flores blood pressure, systolic 135 mm[Hg] Yin Hopkins oxygen saturation, oximetry 97 % Mariah Mark pulse rate 77 /min Mariah Mark weight E&M 213 [lb_av] [facility] E&M 68 [in_i] Mariah [facility] Body Mass Index (Ratio) 31.77 kg/m2 Kadeem Bardales MD blood pressure, cuff size regular Ke rri Gruenenfsapna blood pressure, diastolic 86 mm[Hg] Ke rri Gruenenfeldjorge blood pressure, systolic 144 mm[Hg] Marquez ri Ponesonya oxygen saturation, oximetry 98 % Heidy Larry respiratory rate E&M 12 /min Heidy Carlo dozierenesonya pulse rate 63 /min Heidy Mary er weight E&M 209 [lb_av] Heidy Gruenenfe lder height E&M 68 [in_i] Heidy Gruenenfe lder Body Mass Index (Ratio) 32.23 kg/m2 Kadeem Bardales MD blood pressure, cuff size regular Ke rri Henokuenejuneeld blood pressure, diastolic 80 mm[Hg] Ke rri Gruenenfelder blood pressure, systolic 132 mm[Hg] Ker ri Henokuenenfeldjorge oxygen saturation, oximetry 97 % Heidy Gruenenfrenato respiratory rate E&M 12 /min Heidy G ruenenfelder pulse rate 79 /min [facility] weight E&M 212 [lb_av] [facility]idy [facility] height E&M 68 [in_i] [facility]idy [facility] Body Mass Index (Ratio) 33.08 kg/m2 Fredy Perez pulse rate 87 /min Ivelisse Onamia blood pressure, cuff size regular [facility], diastolic 82 mm[Hg] Ta bitha Nicholson blood pressure, systolic 126 mm[Hg] Tab itha Onamia oxygen saturation, oximetry 97 % [facility] weight E&M 217.6 [lb_av] Ivelisse Onamia height E&M 68 [in_i] Ivelisse Onamia respiratory rate E&M 12 /min Ivelisse Onamia Body Mass Index (Ratio) 33.60 kg/m2 Kadeem Bardales MD blood pressure, cuff size regular Ke rri [facility]iffany[facility]un[facility] blood pressure, diastolic 80 mm[Hg] Ke rri Gruenenfeld blood pressure, systolic 130 mm[Hg] Marquez ri Larry oxygen saturation, oximetry 95 % Heidy Larry respiratory rate E&M 12 /min Heidy G ruenenfelder pulse rate 80 /min Heidy Gruenenfe weight E&M 221 [lb_av] Heidy Gruenenfe height E&M 68 [in_i] Heidy Gruenenfe Body Mass Index (Ratio) 33.30 kg/m2 Fredy b Nacht blood pressure, cuff size regular Ja rret blood pressure, diastolic 82 mm[Hg] Ja rret blood pressure, systolic 138 mm[Hg] Jar ret pulse rate 64 /min Brendon y oxygen saturation, oximetry 96 % Brendon respiratory rate E&M 14 /min Brendon weight E&M 219 [lb_av] Brendon y height E&M 68 [in_i] Brendon y Body Mass Index (Ratio) 33.30 kg/m2 Fredy b t blood pressure, cuff size regular Ke rri Gruenenfelder blood pressure, diastolic 82 mm[Hg] Ke rri Gruenenfeld blood pressure, systolic 122 mm[Hg] Marquez ri Gruenenfelder oxygen saturation, oximetry 98 % Heidy Gruenenfelder respiratory rate E&M 12 /min Heidy G ruenenfelder pulse rate 69 /min Heidy Gruenenfe weight E&M 219 [lb_av] Heidy Gruenenfe er height E&M 68 [in_i] Heidy Gruenenfe Body Mass Index (Ratio) 33.45 kg/m2 Kadeem Bardales MD blood pressure, cuff size regular Ke rri Gruenenfelder blood pressure, diastolic 90 mm[Hg] Ke rri Gruenenfelder blood pressure, systolic 146 mm[Hg] Ker ri Gruenenfelder oxygen saturation, oximetry 98 % Heidy Gruenenfelder respiratory rate E&M 12 /min Heidy G ruenenfelder pulse rate 98 /min Heidy Gruenenfe lder weight E&M 220 [lb_av] Heidy Gruenenfe lder height E&M 68 [in_i] Heidy Gruenenfe lder Body Mass Index (Ratio) 32.38 kg/m2 Kadeem Bardales MD blood pressure, cuff size regular Ke rri Gruenenfelder blood pressure, diastolic 86 mm[Hg] Ke rri Gruenenfelder blood pressure, systolic 156 mm[Hg] Marquez ri Gruenenfelder oxygen saturation, oximetry 96 % Heidy Gruenenfelder respiratory rate E&M 12 /min Heidy G ruenenfelder pulse rate 80 /min Heidy Grtiffanynenfe lder weight E&M 213 [lb_av] Heidy Grtiffanynenfe lder height E&M 68 [in_i] Heidy Grtiffanynenfe lder ALLERGIES No Known Drug Allergies RESULTS Date Observation Value Provider Reference Range Interpretation Location 0 prothrombin time (patient) 10.8 s [facility] 9.0-11.5 Normal 0 international normalized ratio (INR) 1.0 [facility] Normal 0 basophils as percent of blood leukocytes 0.5 % [facility] Normal 0 eosinophils as percent of blood leukocytes 1.7 % [facility] Normal 0 monocyte count, blood 8.3 % [facility] Normal 0 lymphocyte count, blood 21.9 % [facility] Normal 0 neutrophils as percent of blood leukocytes 67.6 % [facility] Normal 0 basophils, absolute, manual 39 cells/mcL [facility] 0-200 Normal 0 eosinophils, absolute, manual 133 cells/mcL [facility] 15-500 Normal 0 monocytes, absolute, manual 647 cells/mcL [facility] 200-950 Normal 0 lymphocytes, absolute 1708 CELLS/UL [facility] 850-3900 Normal 0 Absolute Neutrophil count 5273 cells/mcL [facility] 2922-0281 Normal 0 mean platelet volume 11.3 fL [facility] 7.5-12.5 Normal 0 platelet count 217 THOUSAND/UL [facility] 140-400 Normal 0 red blood cell distribution width 12.9 % [facility] 11.0-15.0 Normal 0 mean corpuscular hemoglobin concentration, RBC 33.2 G/DL [facility] 32.0-36.0 Normal 0 mean corpuscular hemoglobin, RBC 29.4 pg [facility] 27.0-33.0 Normal 0 mean corpuscular volume, RBC 88.7 fL [facility] 80.0-100.0 Normal 0 hematocrit, blood 44.6 % [facility] 38.5-50.0 Normal 0 hemoglobin electrophoresis, blood 14.8 [facility] 13.2-17.1 Normal 0 erythrocyte (RBC) count 5.03 MILLION/UL [facility] 4.20-5.80 Normal 0 leukocyte (white blood cells) count, blood 7.8 THOUSAND/UL [facility] 3.8-10.8 Normal 0 calcium, serum 9.3 mg/dL [facility] 8.6-10.3 Normal 0 carbon dioxide, venous blood 26 mmol/L [facility] 20-32 Normal 0 chloride, serum 106 mmol/L [facility] 98-110 Normal 0 potassium, serum 4.1 mmol/L [facility] 3.5-5.3 Normal 0 sodium, serum 140 mmol/L [facility] 135-146 Normal 0 urea nitrogen/creatini ne ratio, serum 15 (calc) [facility] 6-22 Normal 0 creatinine, serum 1.39 mg/dL [facility] 0.70-1.30 High 0 urea nitrogen, blood 21 mg/dL [facility] 7-25 Normal 0 blood glucose, random 137 mg/dL [facility] 65-99 High 0 cholesterol, non-HDL, total 79 MG/DL (CALC) [facility] <130 Normal 0 cholesterol/HDL ratio, serum, percent 4.4 (calc) [facility] <5.0 Normal 0 LDL cholesterol, serum 53 MG/DL (CALC) [facility] Normal 0 triglyceride, serum, fasting 183 mg/dL [facility] <150 High 0 HDL cholesterol, serum 23 mg/dL [facility] > OR = 40 Low 0 cholesterol, serum 102 mg/dL [facility] <200 Normal 1 C-reactive protein, by highly sensitive test 0.9 mg/L [facility] <1.0 1 LDL Size 206.8 Angstrom [facility] >222.9 Low 1 LDL particle concentration (lipoprotein panel), risk categories correspond to NCEP categories for LDL cholesterol (on a percentile equivalent basis) 1485 nmol/L [facility] <1138 High 1 cholesterol, non-HDL, total 92 MG/DL (CALC) [facility] <130 1 cholesterol/HDL ratio, serum, percent 4.2 calc [facility] <5.0 1 LDL cholesterol, serum 69 MG/DL (CALC) [facility] <100 1 triglyceride, serum, fasting 151 mg/dL [facility] <150 High 1 HDL cholesterol, serum 29 mg/dL [facility] >39 Low 1 cholesterol, serum 121 mg/dL [facility] <200 HISTORY OF MEDICATION USE Medication Status Instructions Dates Provider Indications Com ments ezetimibe 10 mg tablet active Take 1 tablet by mouth once a day 08/25 Constantine Bardales MD aspirin 81 mg tablet,delayed release (DR/EC) active TAKE 1 TABLET EVERY DAY Lesa Wan NP Lantus Solostar U-100 Insulin 100 unit/mL (3 mL) insulin pen active 50 units daily Lesa Wan NP Ozempic 2 mg/dose (8 mg/3 mL) pen injector active Inject 2 mg subcutaneously once a week 12/14 Constantine Bardales MD metoprolol succinate 50 mg tablet extended release 24 hr active Take 1 tablet by mouth once daily 09/15 Constantine Bardales MD Ozempic 0.25 mg or 0.5 mg(2 mg/1.5 mL) pen injector completed Inject 0.5 mg subcutaneously once a week 09/15 - 12/14 Constantine Bardales MD lisinopril 10 mg tablet active Take 1 tablet by mouth once a day 08/11 Constantine Bardales MD fenofibrate nanocrystallized 145 mg tablet active TAKE 1 TABLET BY MOUTH DAILY 08/11 Amy Gillespie fenofibrate nanocrystallized 145 mg tablet completed - 08/11 Constantine Bardales MD Soliqua 100/33 100 unit-33 mcg/mL insulin pen completed ADMINISTER 50 UNITS UNDER THE SKIN DAILY - 01/11 Lesa Wan NP metoprolol tartrate 25 mg tablet completed TAKE 1 TABLET BY MOUTH TWICE DAILY - 09/15 Constantine Bardales MD lisinopril 5 mg tablet completed TAKE 1 TABLET BY MOUTH DAILY - 08/11 Constantine Bardales MD atorvastatin 80 mg tablet active TAKE 1 TABLET BY MOUTH EVERY DAY Constantine Bardales MD Brilinta 90 mg tablet active TAKE 1 TABLET BY MOUTH TWICE A DAY Lesa Wan NP Jardiance 25 mg tablet active Take 1 tablet by mouth once a day Heidy Juarez metformin 750 mg tablet extended release 24 hr active Take 2 tablet by mouth twice a day Heidy Juarez SOCIAL HISTORY Date Observation Value Provider smoking status Never smoker Constantine miller MD smoking status Never smoker Constantine miller MD smoking status Never smoker Constantine miller MD smoking status Never smoker Lesa bacon PRODUCT SALES REPRESENTATIVE Exercise counseling Yes Lesa Wan NP smoking status Never smoker Constantine miller MD smoking status Never smoker Simi kemp PRODUCT SALES REPRESENTATIVE smoking status Never smoker Fred Perez number of grandchildren Constantine Bardales MD smoking status Never smoker Constantine miller MD smoking status Never smoker Constantine miller MD FUNCTIONAL STATUS Date Observation Value Provider HRA, CV Assess/Plan, Angina (inactive) Management Plan continue current therapy Constantine Bardales MD HRA, CV Assess/Plan, Angina (inactive) Management Plan continue current therapy Constantine Bardales MD HRA, CV Assess/Plan, Angina (inactive) Management Plan continue current therapy Constantine Bardales MD HRA, CV Assess/Plan, Angina (inactive) Management Plan continue current therapy Lesa Wan NP HRA, CV Assess/Plan, Angina (inactive) Management Plan continue current therapy Constanitne Bardales MD HRA, CV Assess/Plan, Angina (inactive) Management Plan continue current therapy Simi Edyd PRODUCT SALES REPRESENTATIVE HRA, CV Assess/Plan, Angina (inactive) Management Plan continue current therapy Constantine Bardales MD INSURANCE PROVIDERS Payer name Policy type / Coverage type [employer] red constitution party ID [facility] Other [id number] ADVANCE DIRECTIVES Name Date DISCUSSED - NO DECISION MADE TREATMENT PLAN Date Name Performer Cardiology:This visi t has been a part of the consistent, comprehensive, and ongoing management of the chronic medical condition(s) listed above for the patient. H is updated medication list for this problem includes: Ezetimibe 10 Mg Tablet (Ezetimibe) ..... Take 1 tablet by mouth once a day Fenofibrate Nanocrystallized 145 Mg Tablet (Fenofibrate nanocrystallized) ..... Take 1 tablet by mouth daily Atorvastatin 80 Mg Tablet (Atorvastatin) ..... Take 1 tablet by mouth every day Constantine Bardales MD Cardiology: H is updated medication list for this problem includes: Ozempic 2 Mg/dose (8 Mg/3 Ml) Pen Injector (Semaglutide) ..... Inject 2 mg subcutaneously once a week Aspirin 81 Mg Tablet,delayed Release (dr/ec) (Aspirin) ..... Take 1 tablet every day Lantus Solostar U-100 Insulin 100 Unit/ml (3 Ml) Insulin Pen (Insulin glargine) ..... 50 units daily Lisinopril 10 Mg Tablet (Lisinopril) ..... Take 1 tablet by mouth once a day Jardiance 25 Mg Tablet (Empagliflozin) ..... Take 1 tablet by mouth once a day Metformin 750 Mg Tablet Extended Release 24 Hr (Metformin) ..... Take 2 tablet by mouth twice a day Constantine Bardales MD Cardiology Constantine Guzmán Cardiology:This visi t has been a part of the consistent, comprehensive, and ongoing management of the chronic medical condition(s) listed above for the patient. Constantine Bardales MD Cardiology Constantine Guzmán Cardiology Constantine Guzmán Cardiology: H is updated medication list for this problem includes: Ozempic 2 Mg/dose (8 Mg/3 Ml) Pen Injector (Semaglutide) ..... Inject 2 mg subcutaneously once a week Aspirin 81 Mg Tablet,delayed Release (dr/ec) (Aspirin) ..... Take 1 tablet every day Lantus Solostar U-100 Insulin 100 Unit/ml (3 Ml) Insulin Pen (Insulin glargine) ..... 50 units daily Lisinopril 10 Mg Tablet (Lisinopril) ..... Take 1 tablet by mouth once a day Jardiance 25 Mg Tablet (Empagliflozin) ..... Take 1 tablet by mouth once a day Metformin 750 Mg Tablet Extended Release 24 Hr (Metformin) ..... Take 2 tablet by mouth twice a day Constantien Bardales MD Cardiology:This visi t has been a part of the consistent, comprehensive, and ongoing management of the chronic medical condition(s) listed above for the patient. H is updated medication list for this problem includes: Fenofibrate Nanocrystallized 145 Mg Tablet (Fenofibrate nanocrystallized) ..... Take 1 tablet by mouth daily Atorvastatin 80 Mg Tablet (Atorvastatin) ..... Take 1 tablet by mouth every day Constantine Bardales MD Cardiology:This visi t has been a part of the consistent, comprehensive, and ongoing management of the chronic medical condition(s) listed above for the patient. Constantine Bardales MD Cardiology:This visi t has been a part of the consistent, comprehensive, and ongoing management of the chronic medical condition(s) listed above for the patient. Constantine Bardales MD Cardiology:This visi t has been a part of the consistent, comprehensive, and ongoing management of the chronic medical condition(s) listed above for the patient. His updated medication list for this problem includes: Ozempic 2 Mg/dose (8 Mg/3 Ml) Pen Injector (Semaglutide) ..... 1 mg subcutaneously once a week Aspirin 81 Mg Tablet,delayed Release (dr/ec) (Aspirin) ..... Take 1 tablet every day Lantus Solostar U-100 Insulin 100 Unit/ml (3 Ml) Insulin Pen (Insulin glargine) ..... 50 units daily Lisinopril 10 Mg Tablet (Lisinopril) ..... Take 1 tablet by mouth once a day Jardiance 25 Mg Tablet (Empagliflozin) ..... Take 1 tablet by mouth once a day Metformin 750 Mg Tablet Extended Release 24 Hr (Metformin) ..... Take 2 tablet by mouth twice a day Cosntantine Bardales MD Cardiology:This visi t has been a part of the consistent, comprehensive, and ongoing management of the chronic medical condition(s) listed above for the patient. His updated medication list for this problem includes: Atorvastatin 80 Mg Tablet (Atorvastatin) ..... Take 1 tablet by mouth every day Fenofibrate Nanocrystallized 145 Mg Tablet (Fenofibrate nanocrystallized) ..... Take 1 tablet by mouth daily Constantine Bardales MD Cardiology:This visi t has been a part of the consistent, comprehensive, and ongoing management of the chronic medical condition(s) listed above for the patient. Constantine Bardales MD Cardiology: S table with no angina. Had abnormal stress test. s/p cardiac cath 11/17. see #1 Lesa Wan NP Cardiology:CHOL: 102 (11/17/2023) LDL: 53 MG/DL (CALC) (11/17/2023) HDL: 23 (11/17/2023) T (11/17/2023) C RP: 0.9 mg/L (08/20/2023) His updated medication list for this problem includes: Atorvastatin 80 Mg Tablet (Atorvastatin) ..... Take 1 tablet by mouth every day Fenofibrate Nanocrystallized 145 Mg Tablet (Fenofibrate nanocrystallized) ..... Take 1 tablet by mouth daily Lesa Wan NP Cardiology:last A1c 7.3. The following medications were removed from the medication list: Soliqua 100/33 100 Unit-33 Mcg/ml Insulin Pen (Insulin glargine-lixisenatide) ..... Administer 50 units under the skin daily His updated medication list for this problem includes: Aspirin 81 Mg Tablet,delayed Release (dr/ec) (Aspirin) ..... Take 1 tablet every day Lantus Solostar U-100 Insulin 100 Unit/ml (3 Ml) Insulin Pen (Insulin glargine) ..... 50 units daily Ozempic 1 Mg/dose (4 Mg/3 Ml) Pen Injector (Semaglutide) ..... 1 mg subcutaneously once a week Lisinopril 10 Mg Tablet (Lisinopril) ..... Take 1 tablet by mouth once a day Jardiance 25 Mg Tablet (Empagliflozin) ..... Take 1 tablet by mouth once a day Metformin 750 Mg Tablet Extended Release 24 Hr (Metformin) ..... Take 2 tablet by mouth twice a day Lesa Wan NP Cardiology: O n ozempic. has lost 4#, but was not on for the last 2 weeks. has taken 2 doses of 1mg, 3rd dose of 1mg is due today. pt 'unsure' if there is any affect on appetite at present. will keep at 1mg and see how pt is doing in 1 month at next appoitment. will determine at that time about increasing dose. Lesa Wan NP Cardiology: r are PVC's seen during the stress test Lesa Wan NP Cardiology:01/12/24 s /p cath 11/18/23 widely patent proximal to mid LAD stent, 80% stenosis of a small 1.5mm diameter diagonal branch, 60% stenosis of the trifurcation of the circumflex artery, widely patent RCA mid stent and distal stented segment with no new high-grade obstructive stenoses. The abnormality on stress Myocardial perfusion scan may related to diffuse distal LAD plaque but there is no focal stenoses or area that is amenable for intervention at this time. EF 60% continue brilinta, asa, bb, statin, fenofibrate stress test revealed abnormal perfusion imaging in the apical region with a moderate perfusion defect, which is medium in size and and has c omplete reversiblity. No c/o chest pain, sob, plapitations, dizziness. plan cardiac cath Lesa Soco CONRAD Cardiology:Stable wi th no angina. Had abnormal stress test. Plan for cardiac cath. Simi Eddy NP Cardiology: H is updated medication list for this problem includes: Atorvastatin 80 Mg Tablet (Atorvastatin) ..... Take 1 tablet by mouth every day Fenofibrate Nanocrystallized 145 Mg Tablet (Fenofibrate nanocrystallized) ..... Take 1 tablet by mouth daily Simi Almazluviridiana PRODUCT SALES REPRESENTATIVE Cardiology: H is updated medication list for this problem includes: Lisinopril 10 Mg Tablet (Lisinopril) ..... Take 1 tablet by mouth once a day Soliqua 100/33 100 Unit-33 Mcg/ml Insulin Pen (Insulin glargine-lixisenatide) ..... Administer 50 units under the skin daily Jardiance 25 Mg Tablet (Empagliflozin) ..... Take 1 tablet by mouth once a day Metformin 750 Mg Tablet Extended Release 24 Hr (Metformin) ..... Take 2 tablet by mouth twice a day Simi Eddy PRODUCT SALES REPRESENTATIVE Cardiology:On ozempic Simi quevedo PRODUCT SALES REPRESENTATIVE Cardiology:rare PVC's seen carol hdz the stress test Simi Muserachel PRODUCT SALES REPRESENTATIVE Cardiology:stress te st revealed abnormal perfusion imaging in the apical region with a moderate perfusion defect, which is medium in size and and has c omplete reversiblity. No c/o chest pain, sob, plapitations, dizziness. Plan for cardiac cath Simi Eddy NP Cardiology Constantine Guzmán Cardiology Constantine Guzmán Cardiology: H is updated medication list for this problem includes: Atorvastatin 80 Mg Tablet (Atorvastatin) ..... Take 1 tablet by mouth every day Fenofibrate Nanocrystallized 145 Mg Tablet (Fenofibrate nanocrystallized) ..... Take 1 tablet by mouth daily Constantine Bardales MD Cardiology Constantine Guzmán Cardiology Constantine Guzmán Cardiology Constantine Guzmán Cardiology Constantine Guzmán Cardiology: H is updated medication list for this problem includes: Atorvastatin 80 Mg Tablet (Atorvastatin) ..... Take 1 tablet by mouth every day Fenofibrate Nanocrystallized 145 Mg Tablet (Fenofibrate nanocrystallized) ..... Take 1 tablet by mouth daily Constantine Bardales MD Cardiology Constantine Guzmán Cardiology Constantine Guzmán Cardiology: H is updated medication list for this problem includes: Fenofibrate Nanocrystallized 145 Mg Tablet (Fenofibrate nanocrystallized) ..... Take 1 tablet by mouth daily Atorvastatin 80 Mg Tablet (Atorvastatin) ..... Take 1 tablet by mouth every night Constantine Bardales MD Cardiology Constantine Guzmán Date Name LIPID PANEL LIPID PANEL CBC (INCLUDES DIFF/P LT) BASIC METABOLIC PANE L W/EGFR PROTHROMBIN TIME WIT H INR Stress Exercise Card iolite [employer]io[facility] Advanced Li pid Panel with Inflammation ([facility]) HISTORY OF PROCEDURES Procedure Date Procedure Name Provider Procedure Notes S tatus Complex e/m visit add on Constantine Bardales MD completed Complex e/m visit add on Constantine Bardales MD completed Complex e/m visit add on Constantine Bardales MD completed EKG Constantine Bardales MD complet ed
--- OUTSIDE RECORDS SUMMARY | 2024-08-12 02:03 | XMS_ITS | Encounter Summary ---
Author Organization [facility] Address [address] [place] [address] Phone Care Team Providers Care Ladle Handler Name Role Phone Medhat Benton MD Primary Care Provider [phone] Griffin Miles MD Unavailable Joao Basilio MD Unavailable [facility] lab Reason for Referral * Radiology Services (Less Than 3 Days) - Closed Specialty Diagnoses / Procedures Referred By Contjm t Referred To Contact Radiology Diagnoses Right-sided chest wall pain Procedures CT CHEST W/O CONTRAST Medhat Benton MD #[address] [address] Phone: tel: fax: Referral ID Status Reason Start Date Expiration Date Visits Re quested Visits Authorized [id number] Closed 07/04/2024 1 1 MACHINIST Encounter Details Date Type Department Care Team (Late st Contact Info) Description 07/04/2024 Results Follow-Up [facility] - Family Medicine - [place] [address] [place] [address] Medhat Benton MD #[address] [address] Right-sided chest wall pain (Primary Dx) Social History Tobacco Use Types Packs/Day Years Used Date Smoking Tobacco: Never Smokeless Tobacco: Former Chew Quit: 01/04/2022 Comments:average 1 can a day , started at age 8 Alcohol Use Standard Drinks/Week Comments No 0 (1 standard drink = 0.6 oz pur e alcohol) once a year PHQ-2 Answer Date Recorded Total Score - Questions 1-9 0 12/18 Sexually Active Control Partners Comments Not Currently Female Sex and Gender Information Value Date Recorded Sex Assigned at Not on file Legal Sex Male 7:42 PM CDT Gender Identity Not on file Sexual Orientation Not on file 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 file Not on file Not on file documented as of this encounter Plan of Treatment Upcoming Encounters Date Type Department Care Team (Late st Contact Info) Description 09/06/2024 9:45 AM AUTO MACHINIST Office Visit [facility] [place] [address] [place] [address] Medhat Benton MD #[address] [address] documented as of this encounter Results * CT CHEST W/O CONTRAST (07/06/2024 8:44 AM AUTO MACHINIST) Anatomical Region Laterality Modality Chest N/A Computed Tomogra phy 07/06/2024 9:16 AM AUTO MACHINIST Impressions 07/06/2024 9:19 AM AUTO MACHINIST IMPRESSION: No acute pulmonary process. Narrative 07/06/2024 9:19 AM AUTO MACHINIST EXAM DESCRIPTION: ?? CT CHEST W/O CONTRAST REASON FOR STUDY: ?? C/ right side chest wall pain x 3 weeks ?? TECHNIQUE: CT scan of the chest performed without intravenous contrast using helical scanning technique. Reconstructed coronal and sagittal MPR images reviewed. ??All images stored on PACS. ??Automated exposure control was used as a dose optimization technique for this examination. COMPARISON: ?? 06/25/2024 rib series FINDINGS: The sensitivity for detection of solid visceral lesions is diminished without the use of intravenous contrast. LUNGS: ?? No nodules or masses. No pneumonia. PLEURA: ?? No effusion. No pneumothorax. MEDIASTINUM/DEXTER: ?? No identified masses or abnormal nodes. HEART: ?? Coronary arterial calcifications and apparent vascular stent noted. CORONARY ARTERY CALCIFICATION: ??Present VASCULATURE: ?? No thoracic aortic aneurysm. AXILLA: ?? No adenopathy. CHEST WALL: ?? No masses. ??No subcutaneous air. HARDWARE/LINES/TUBES: ?? None. UPPER ABDOMEN: ?? No significant abnormality. MUSCULOSKELETAL: ?? No significant abnormality. OTHER: ?? No other significant abnormality. THIS IS AN ELECTRONICALLY VERIFIED FINAL REPORT 07/06/2024 9:16 AM - Electronically signed by ??Pérez Grant M.D. RB: BRIAN D: ??07/06/2024 9:16 AM T: ??07/06/2024 9:16 AM Report ID: [id number] Reading Location: ??[id number] Procedure Note Pérez Grant MD - 07/06/2024 EXAM DESCRIPTION: CT CHEST W/O CONTRAST REASON FOR STUDY: C/ right side chest wall pain x 3 weeks TECHNIQUE: CT scan of the chest performed without intravenous contrast using helical scanning technique. Reconstructed coronal and sagittal MPR images reviewed. All images stored on PACS. Automated exposure control was used as a dose optimization technique for this examination. COMPARISON: 06/25/2024 rib series FINDINGS: The sensitivity for detection of solid visceral lesions is diminished without the use of intravenous contrast. LUNGS: No nodules or masses. No pneumonia. PLEURA: No effusion. No pneumothorax. MEDIASTINUM/DEXTER: No identified masses or abnormal nodes. HEART: Coronary arterial calcifications and apparent vascular stent noted. CORONARY ARTERY CALCIFICATION: Present VASCULATURE: No thoracic aortic aneurysm. AXILLA: No adenopathy. CHEST WALL: No masses. No subcutaneous air. HARDWARE/LINES/TUBES: None. UPPER ABDOMEN: No significant abnormality. MUSCULOSKELETAL: No significant abnormality. OTHER: No other significant abnormality. THIS IS AN ELECTRONICALLY VERIFIED FINAL REPORT 07/06/2024 9:16 AM - Electronically signed by Pérez Grant M.D. RB: BRIAN Report ID: [id number] Reading Location: [id number] IMPRESSION: No acute pulmonary process. Medhat Benton MD IMG CT ORDERABLES Final Res ult documented in this encounter Visit Diagnoses Diagnosis Right-sided chest wall pain- Primary Painful respiration Right-sided chest wall pain Painful respiration documented in this encounter Additional Health Concerns Assessment Noted Time PHQ-9 Depression Total Score: 0 12/29/19 20 9:23 AM CDT documented as of this encounter Care Teams Ladle Handler Relationship Specialty Start Date End Date Medhat Benton MD #2 [facility] [address] [place] [address] PCP - General Family Medicine 07/05/15 Griffin Miles MD #2 [facility] [address] [place] [address] Consulting Physician Colon and Rectal Surgery 03/12/22 Joao Basilio MD #[address] [address] Consulting Physician Cardiovascular Disease - Cardiology 03/27/22 documented as of this encounter
--- OUTSIDE RECORDS SUMMARY | 2024-08-12 02:03 | XMS_ITS | Encounter Summary ---
Author Organization [facility] Address [address] [place] [address] Phone Care Team Providers Care Candy Vendor Name Role Phone Medhat Benton MD Primary Care Provider Griffin Miles MD Unavailable Joao Basilio MD Unavailable Unavai lable Reason for Visit * Reason Comments Medication Refill Encounter Details Date Type Department Care Team (Late st Contact Info) Description 01/17/2021 Refill [facility] Medical/Surgical Intensive Care 1 [place] [address] Medhat Benton MD #[address] [address] Medication Refill Social History Tobacco Use Types Packs/Day Years Used Date Smoking Tobacco: Never Smokeless Tobacco: Current Chew Comments:started chew @ 7yo. 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 Requested Prescriptions Pending Prescriptions Disp Refills amLODIPine (NORVASC) 10 MG Tablet [Pharmacy Med Name: AMLODIPINE BESYLATE 10MG TABLETS] 90 Tablet 3 Sig: TAKE 1 TABLET BY MOUTH DAILY There is no refill protocol information for this order documented in this encounter Plan of Treatment Upcoming Encounters Date Type Department Care Team (Late st Contact Info) Description 09/06/2024 9:45 AM M1 ARMOR CREWMAN Office Visit [facility] - Family [facility] #2 [place] [address] Medhat Benton MD #[address] [address] documented as of this encounter Visit Diagnoses Not on filedocumented in this encounter Additional Health Concerns Infection Onset Date Last Indicated Resolved Time COVID - 19 06/02/2021 06/02/2021 06/22/2021 12:1 9 AM M1 ARMOR CREWMAN Assessment Noted Time PHQ-9 Depression Total Score: 0 12/29/19 20 9:23 AM CDT documented as of this encounter Care Teams Candy Vendor Relationship Specialty Start Date End Date Medhat Benton MD #[address] [address] PCP - General Family Medicine 07/05/15 Griffin Miles MD #[address] [address] Consulting Physician Colon and Rectal Surgery 03/12/22 Joao Basilio MD #[address] [address] Consulting Physician Cardiovascular Disease - Cardiology 03/27/22 documented as of this encounter
--- OUTSIDE RECORDS SUMMARY | 2024-08-12 02:03 | XMS_ITS | Encounter Summary ---
Author Organization [facility] Address [address] 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 Thanks! [place] GUIDE documented in this encounter Plan of Treatment Upcoming Encounters Date Type Department Care Team (Late st Contact Info) Description 09/06/2024 9:45 AM WH[place] RIVER GUIDE Office Visit [facility] Medical [facility] - Family Medicine [facility] #[address] [place] [address] Medhat Benton MD #[address] [address] documented as of this encounter Visit Diagnoses Diagnosis Chest wall pain- Primary Painful respiration documented in this encounter Additional Health Concerns Assessment Noted Time PHQ-9 Depression Total Score: 0 12/29/19 20 9:23 AM CDT documented as of this encounter Care Teams Abstracter Relationship Specialty Start Date End Date Medhat Benton MD #[address] [address] PCP - General Family Medicine 07/05/15 Griffin Miles MD #[address] [place] [address] Consulting Physician Colon and Rectal Surgery 03/12/22 Joao Basilio MD #[address] [place] [address] Consulting Physician Cardiovascular Disease - Cardiology 03/27/22 documented as of this encounter
--- OUTSIDE RECORDS SUMMARY | 2024-08-12 02:03 | XMS_ITS | Encounter Summary ---
Author Organization [facility] Address [address] [place] [address] Phone Care Team Providers Care Garland Machine Operator Name Role Phone Medhat Benton MD Primary Care Provider Griffin Miles MD Unavailable Joao Basilio MD Unavailable Unavai lable Reason for Visit * Reason Comments Medication Refill Encounter Details Date Type Department Care Team (Late st Contact Info) Description 01/24/2022 Refill [facility] Medical/Surgical Intensive Care 1 [place] [address] Medhat Benton MD #[address] [address] Medication Refill Social History Tobacco Use Types Packs/Day Years Used Date Smoking Tobacco: Never Smokeless Tobacco: Current Chew Comments:average 1 can a day , started [...] 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 Not on file documented as of this encounter Miscellaneous Notes * Telephone Encounter - Deya Sahu RN - 01/27/2022 8:27 AM CDT Name from pharmacy: AMLODIPINE BESYLATE 10MG TABLETS Will file in chart as: amLODIPine (NORVASC) 10 MG Tablet The original prescription was discontinued on 03/15/2021 by Medhat Benton MD documented in this encounter Plan of Treatment Upcoming Encounters Date Type Department Care Team (Late st Contact Info) Description 09/06/2024 9:45 AM INVESTMENT BROKER Office Visit [facility] - Family Medicine - [place] #2 [facility] [place] [address] Medhat Benton MD #[address] [place] [address] documented as of this encounter Visit Diagnoses Not on filedocumented in this encounter Additional Health Concerns Assessment Noted Time PHQ-9 Depression Total Score: 0 12/29/19 20 9:23 AM CDT documented as of this encounter Care Teams Garland Machine Operator Relationship Specialty Start Date End Date Medhat Benton MD #[address] [place] [address] PCP - General Family Medicine 07/05/15 Griffin Miles MD #[address] [place] [address] Consulting Physician Colon and Rectal Surgery 03/12/22 Joao Basilio MD #[address] [place] [address] Consulting Physician Cardiovascular Disease - Cardiology 03/27/22 documented as of this encounter
--- OUTSIDE RECORDS SUMMARY | 2024-08-12 02:03 | XMS_ITS | Clinical Summary ---
Author Organization [facility] Address [address], [facility] [address] [place] [address] Phone Care Team Providers Care Swahili Teacher Name Role Phone Medhat Benton MD Primary Care Provider [phone] Griffin Miles MD Unavailable Joao Basilio MD Unavailable Unavai lable Allergies Active Allergy Reactions Criticality Noted Date Comments Nsaids Other (see Comments) 06/20/2024 HISTORY OF HEART ATTACK! Medications Aspirin 81 MG Tablet Take 1 Tab by mouth daily. Reported on 08/01/2016 100 Tab 07/08/20 18 Active valACYclovir (VALTREX) 1 GM Tablet Take 1 Tab by mouth 2 times daily. 20 Tab 12/29/19 20 Active atorvastatin (LIPITOR) 80 MG TabletIndication s:Coronary arteriosclerosis ,Primary hypertension Take 1 Tablet by mouth nightly. 30 Tablet 11 04/04/20 22 Active lisinopril (PRINIVIL, ZESTRIL) 5 MG TabletIndication s:Coronary arteriosclerosis ,Primary hypertension Take 1 Tablet by mouth daily. 30 Tablet 11 04/04/20 22 Active metoprolol tartrate (LOPRESSOR) 25 MG TabletIndication s:Coronary arteriosclerosis ,Primary hypertension Take 1 Tablet by mouth 2 times daily. 60 Tablet 11 04/04/20 22 Active Continuous Blood Gluc Geospatial Technologist (NativeflowStyle Miguel 2 [place]) Device 1 Device by Other route. 04/09/20 22 Active BD Pen Needle Jessica 2nd Gen 32G X 4 MM Misc USE ONE PEN NEEDLE TO INJECT INSULIN DAILY 04/18/20 22 Active Jardiance 25 MG Tablet 04/05/20 22 Active Soliqua 100-33 UNT-MCG/ML Solution Pen-injector ADMINISTER 40 UNITS UNDER THE SKIN DAILY 04/16/20 22 Active metFORMIN (GLUCOPHAGE-XR) 750 MG TABLET SR 24 HR Take 750 mg by mouth in the morning and at bedtime. 04/09/20 22 Active HYDROcodone-acet aminophen (NORCO) 5-325 MG TabletIndication s:Acute right-sided low back pain with right-sided sciatica Take 1-2 tablets by mouth every 6 hours as needed for moderate to severe pain 40 Tablet 04/24/20 22 Active Additional Information Patient not taking.Reported on 07/15/2024 fenofibrate (TRICOR) 145 MG TabletIndication s:Coronary arteriosclerosis ,Primary hypertension Take 1 Tablet by mouth daily. 90 Tablet 2 07/15/20 22 Active tiZANidine (ZANAFLEX) 2 MG Tablet Take 1 Tablet by mouth nightly as needed for Muscle spasms. 15 Tablet 12/17/19 23 Active Additional Information Patient not taking.Reported on 07/15/2024 Insulin Glargine-Lixisen atide (Soliqua) 100-33 UNT-MCG/ML Solution Pen-injector 50 Units by Subcutaneous route. 10/15/19 23 Active Brilinta 90 MG Tablet 08/06/19 24 Active Semaglutide (OZEMPIC, 2 MG/DOSE, SC) by Subcutaneous route. Active acetaminophen-co deine (TYLENOL #3) 300-30 MG TabletIndication s:Chest wall pain Take 1 Tablet by mouth 2 times daily as needed for Moderate or more severe pain. 30 Tablet 07/12/20 24 Active ezetimibe (ZETIA) 10 MG Tablet ezetimibe 10 mg tablet 06/24/20 24 Active metoprolol Succinate (TOPROL-XL) 50 MG TABLET SR 24 HR 07/14/20 24 Active ergocalciferol (VITAMIN D) 49272 UNIT CapsuleIndicatio ns:Vitamin D deficiency Take 1 Capsule by mouth once a week for 12 doses. 12 Capsule 05/14/20 24 025 Additional Information Patient not taking.Reported on 07/15/2024 Active Problems Problem Noted Date Diagnosed Date Screening for colon cancer 06/20/2024 Right-sided chest wall pain 06/20/2024 Elevated serum creatinine 05/14/2024 Problems related to high-risk sexual behavior Left foot pain 12/16/2022 Acute left ankle pain 12/16/2022 Renal lesion 05/21/2022 Assessment & Plan (05/21/2022 8:17 AM CDT): US in 05/2022 was complex cyst. Leobardo 2F. Recommended repeat US in 6-12 months. History of coronary artery stent placement 03/12 Abscess of left groin 03/12/2022 Hematoma 03/12/2022 History of heart attack 03/15/2021 Type 2 diabetes mellitus treated without insulin 04/10/2020 Elevated vitamin B12 level 02/28/2020 Elevated liver enzymes 02/26/2020 HSV (herpes simplex virus) infection 12/29/2019 Fatigue 12/29/2019 Elevated hemoglobin A1c 10/04/2017 History of heart artery stent 09/11/2017 PNAR (perennial non-allergic rhinitis) 7 Non-ST elevation (NSTEMI) myocardial infarction 10/01/2016 Chest pain 09/23/2016 HTN (hypertension) 09/23/2016 DM (diabetes mellitus) 09/23/2016 HLD (hyperlipidemia) 09/23/2016 Obesity 2016 HUNG (obstructive sleep apnea) 02/22/2016 Vitamin D deficiency 08/06/2015 Hyperlipidemia 08/06/2015 Diabetes type 2, controlled 08/06/2015 Noncompliance 08/06/2015 Resolved Problems Problem Noted Date Diagnosed Date Resolved Date Unstable angina 12/24/2019 12/24/2019 NSTEMI (non-ST elevated myoc ardial infarction) 09/23/2016 10/01/2016 Encounters Date Type Department Care Team Description 07/15/2024 4:00 PM CROTCH PIECE BASTER Office Visit [facility] Eben Preciado [address] [place] [address] Alexei Dewitt, TOOTH POLISHER, UNIT NURSE Acute right-sided thoracic back pain (Primary Dx) Discharge Disposition: Discharged to home or Selfcare 07/15/2024 Travel 07/09/2024 Results Follow-Up [facility] Eben Preciado [address] [place] [address] Medhat Benton MD Chest wall pain (Primary Dx) 07/06/2024 8:34 AM CROTCH PIECE BASTER - 07/06/2024 11:59 PM CROTCH PIECE BASTER Hospital Encounter [facility] [address] [facility] [place] [address] Medhat Benton MD Discharge Disposition: Discharged to home or Selfcare 07/06/2024 Travel 07/04/2024 Results Follow-Up [facility] [address] [place] [address] Medhat Benton MD Right-sided chest wall pain (Primary Dx) 06/25/2024 6:00 AM CROTCH PIECE BASTER - 06/25/2024 11:59 PM CROTCH PIECE BASTER [facility] [address] [place] [address] Medhat Benton MD Discharge Disposition: Discharged to home or Selfcare 06/25/2024 Travel 06/20/2024 3:00 PM CROTCH PIECE BASTER Office Visit [facility] [address] [place] [address] Medhat Benton MD History of heart attack (Primary Dx); Encounter for diabetic foot exam (HCC); Diabetic eye exam (HCC); Screening for colon cancer; Right-sided chest wall pain Discharge Disposition: Discharged to home or Selfcare 06/20/2024 Travel 06/15/[facility] [place] [address] Medhat Benton MD 05/17/2024 Telephone [facility] [address] [place] [address] Medhat Benton MD 05/16/2024 [facility] [place] [phone] Medhat Benton MD Results 05/14/2024 [facility] [place] [address] Medhat Benton MD from Last 3 Months Immunizations Immunization Administration Dates Next Due Covid-19, Mrna, Lnp-s, Pf, 30 Mcg/0.3 Ml Dose (P fizer) 10/13/2020 Influenza Vaccine, Quadrivalent, PF 04/23/2017,0 09/24/2016 Pneumococcal Vaccine Adult - 23 Valent 7 Family History * Patient is adopted Medical History Relation Name Comments Other-comment Daughter sammie beltran No Known Problems Half-Sister 1 No Known Problems Half-Sister 2 Breast Cancer Mother Heart Attack Mother Stroke Mother Relation Name Status Comments Daughter Alive Half-Sister 1 Alive Same mother Half-Sister 2 Alive Same mother Mother Alive Social History Tobacco Use Types Packs/Day Years Used Date Smoking Tobacco: Never Smokeless Tobacco: Former Chew Quit: 01/04/2022 Tobacco Cessation:Counseling Given: No Comments:average 1 can a day, started at age 8 Alcohol Use Standard [...] 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 on file Not on file Not on file Last Filed Vital Signs Vital Sign Reading Time Taken Comments Blood Pressure 130/68 07/15/2024 3:34 PM CROTCH PIECE BASTER Pulse 77 07/15/2024 3:34 PM CROTCH PIECE BASTER Temperature 36.3 ??C (97.4 ??F) 07/15/2024 3:34 PM CS T Respiratory Rate 16 07/15/2024 3:34 PM CROTCH PIECE BASTER Oxygen Saturation 99% 07/15/2024 3:34 PM CROTCH PIECE BASTER Inhaled Oxygen Concentration - - Weight 100.1 kg (220 lb 9.6 oz) 07/15/2024 3:34 PM CROTCH PIECE BASTER Height 172.7 cm (5' 8 ) 07/15/2024 3:34 PM CROTCH PIECE BASTER Body Mass Index 33.54 07/15/2024 3:34 PM CROTCH PIECE BASTER Plan of Treatment Upcoming Encounters Date Type Department Care Team (Late st Contact Info) Description 09/06/2024 9:45 AM CROTCH PIECE BASTER [facility] [address] [place] [address] Medhat Benton MD [address] [address] Health Maintenance Due Date Last Done Comments Diabetes: Eye Exam 1967 Diabetes: Foot Exam 1967 TdaP Immunization 1967 Hepatitis B Immunization (1 of 3 - 19+ 3-dose series) 1986 Colonoscopy 2012 Colorectal Cancer Screening 2012 Cologuard 2017 Immunochemical Fecal Occult Blood 2017 Zoster Immunization (1 of 2) 2017 Pneumococcal Immunization (50+ years) (2 of 2 - PCV) 09/24/2017 09/24/2016 Influenza Immunization (#1) 2024 04/23/2017, 0 09/24/2016 SARS-COV-2 Immunization ( season) 2024 05/28/2023, 08/18/2021, 10/13/2020 Diabetes: Hemoglobin A1c 12/10/20242 024, 11/10/2023, 08/04/2023, Additional history exists Diabetes: Nephropathy Screening 05/04/2025 05/04/2024, 03/07/2021, 02/28/2021, Additional history exists Respiratory Syncytial Virus (RSV) Immunization (Adult) (1 - 1-dose 75+ series) 2042 Pneumococcal Immunization Combined Discontinued 09/24/2016 Hepatitis C Virus (HCV) Screening Completed 05/04/2024, 04/07/2020 PSA Discussion Completed 05/04/2024, 02/18, 01/26/2020, Additional history exists Meningococcal Immunization (ACWY) Aged Out No longer eligible based on patient's age to complete this topic Rotavirus Immunization Aged Out No lo nger eligible based on patient's age to complete this topic Medical Devices Implanted Type Area Automobile Accessories Salesperson Device Identifier Shelf Expiration Date Model / Serial / Lot Stent Rx Eleazar Alpine 2.75 X 18mm - [id number] Implanted:Qty: 1 on 09/23/2016 by [facility] IMPLANT Coronary [employer] 01/20/2019 [id number] Stent Rx Eleazar Alpine 2.50 X 15mm - [id number] Implanted:Qty: 1 on 09/23/2016 by [facility] IMPLANT Coronary [employer] 04/28/2018 [id number] Angioseal Vip 6fr - [id number] Implanted:Qty: 1 on 09/23/2016 by [facility] IMPLANT Right: Groin ST K[facility] / [employer]IAL [employer] 02/16/2017 [id number] / / [id number] Stent Coronary Mary Xience Everolimus Eluting 2.9soj32zm - [id number] Implanted:Qty: 1 on 12/23/2019 by [facility]idi Low[facility] IMPLANT N/A: Coronary [employer] [id number] Stent Coronary Mary Xience Everolimus Eluting 2.4twa50ff - [id number] Implanted:Qty: 1 on 12/23/2019 by [facility]idi Low[facility] IMPLANT N/A: Coronary [employer] [id number] Device Clsr 70cm 6fr Angio-Seal Vip .035in Vasc Collagen Valuelink Gw Insertion Shth J Linotype Machinist - [id number] Implanted:Qty: 1 on 12/23/2019 by [facility]idi [facility] IMPLANT Right: Groin [employer] 07/19/2020 [id number] / / [id number] Procedures Procedure Name Priority Date/Time Associated Diagnosis Comments CT CHEST W/O CONTRAST Less Than 3 Days 07/06/2024 8:44 AM CROTCH PIECE BASTER Right-sided chest wall pain XR RIBS RIGHT 2 OR MORE VIEWS Routine 06/25/2024 6:18 AM CROTCH PIECE BASTER Right-sided chest wall pain CMP (COMPREHENSIVE METABOLIC PANEL) Today 05/04/2024 10:15 AM CDT Hyperlipidemia, unspecified hyperlipidemia type HEPATITIS PANEL ACUTE (AHP) Routine 05/04/2024 10:15 AM CDT High risk sexual behavior, unspecified type PSA SCREEN Today 05/04/2024 10:15 AM CDT Screening for prostate cancer HEMOGLOBIN A1C W/ ESTIMATED GLUCOSE Routine 10/14/2022 from Last 3 Months or Most Recently Relevant to Health Maintenance Results * CT CHEST W/O CONTRAST (07/06/2024 8:44 AM CROTCH PIECE BASTER) Anatomical Region Laterality Modality Chest N/A Computed Tomogra phy 07/06/2024 9:16 AM CROTCH PIECE BASTER Impressions 07/06/2024 9:19 AM CROTCH PIECE BASTER IMPRESSION: No acute pulmonary process. Narrative 07/06/2024 9:19 AM CROTCH PIECE BASTER EXAM DESCRIPTION: ?? CT CHEST W/O CONTRAST [...] AM T: ??07/06/2024 9:16 AM Report ID: [id number] Reading Location: ??[id number] Procedure Note Pérez Grant MD - 07/06/2024 [...] Pérez Grant M.D. RB: BRIAN Report ID: [id number] Reading Location: [id number] IMPRESSION: No acute pulmonary process. Medhat Benton MD IMG CT ORDERABLES Final Res ult * XR RIBS RIGHT 2 OR MORE VIEWS (06/25/2024 6:18 AM CROTCH PIECE BASTER) Anatomical Region Laterality Modality Chest, Rib Right Digital Radiogra phy 06/30/2024 9:19 AM CROTCH PIECE BASTER Impressions 06/30/2024 9:22 AM CROTCH PIECE BASTER IMPRESSION: No acute abnormality. Narrative 06/30/2024 9:22 AM CROTCH PIECE BASTER EXAM DESCRIPTION: XR RIBS RIGHT 2 OR MORE VIEWS REASON FOR STUDY: Right chest pain TECHNIQUE: 3 ??views of the ??right ??ribs. COMPARISON: 03/07/2021 FINDINGS: RIBS: ??No acute displaced fracture or obvious osseous abnormalities. VISUALIZED LUNGS: ??No focal opacity, pleural effusion, or pneumothorax. THIS IS AN ELECTRONICALLY VERIFIED FINAL REPORT 06/30/2024 9:19 AM - Electronically signed by ??Rodrigo Marcus M.D. YOHAN: YOHAN D: ??06/30/2024 9:19 AM T: ??06/30/2024 9:19 AM Report ID: [id number] Reading Location: ??[id number] Procedure Note Trevon Marcus MD - 06/30/2024 EXAM DESCRIPTION: XR RIBS RIGHT 2 OR MORE VIEWS REASON FOR STUDY: Right chest pain TECHNIQUE: 3 views of the right ribs. COMPARISON: 03/07/2021 FINDINGS: RIBS: No acute displaced fracture or obvious osseous abnormalities. VISUALIZED LUNGS: No focal opacity, pleural effusion, or pneumothorax. THIS IS AN ELECTRONICALLY VERIFIED FINAL REPORT 06/30/2024 9:19 AM - Electronically signed by Rodrigo Marcus M.D. YOHAN: YOHAN Report ID: [id number] Reading Location: [id number] IMPRESSION: No acute abnormality. Medhat Benton MD IMG DIAGNOSTIC ORDERABLES F inal Result * PSA SCREEN (05/04/2024 10:15 AM CDT) PSA SCREEN, TOTAL 0.59 <4.00 ng/mL 05/04/2024 1:11 PM CDT [facility] Blood Venipuncture / Unknown 05/04/2024 10:15 AM CDT 05/04/2024 10:15 AM CDT Narrative [facility] - 05/04/2024 1:11 PM CDT The ALINITY Total PSA assay is a Chemiluminescent Microparticle Immunoassay (CMIA) for the quantitative determination of total PSA (both free PSA and PSA complexed to [id number]) in human serum. Total PSA values obtained with different assay methods, including Stratton PSA assays, cannot be used interchangeably. us Medhat Benton MD CHEMISTRY ORDERABLES Final Result [facility] [address] [place] [address] * HEPATITIS PANEL ACUTE (AHP) (05/04/2024 10:15 AM CDT) HEPATITIS A IGM ANTIBODY NON DETECTED NON DETECTED 05/04/2024 10:36 PM CDT [facility] Comment: IGM Antibodies to HAV not detected. ??Does not exclude early acute or recovered HAV infection. HEP B CORE AB (IGM) NON DETECTED NON DETECTED 05/04/2024 10:36 PM CDT [facility] Comment:IGM anti-HBC not det ected. Does not exclude the possibility of exposure to or infection with HBV. HEPATITIS B SURFACE ANTIGEN NON DETECTED NON DETECTED 05/04/2024 10:36 PM CDT [facility] Comment:A nonreactive test r esult does not exclude the possibility of exposure to or infection with Hepatitis B virus. A nonreactive test result in individuals with prior exposure to hepatitis B may be due to antigen levels below the detection limit of this assay or lack of antigen reactivity to the antibodies in this assay. hepatitis C antibody 0.09 <1 S/CO 05/04/2024 10:36 PM CDT [facility] Comment: Signal/Cutoff ratio ??< 0.79 is Nondetected Signal/Cutoff ratio 0.80-0.99 is Grayzone Signal/Cutoff ratio > 0.99 is Detected Supplemental assays are recommended if signal/cutoff ratio is >/=1.00. ??Signal/cutoff ratio result >/= 5.00 is 97% predictive of positivity for recombinant immunoblot assay (RIBA) and will be reported to the [place] Department of Public Health as required. Blood Venipuncture / Unknown 05/04/2024 10:15 AM CDT 05/04/2024 10:15 AM CDT us Medhat Benton MD HEMATOLOGY ORDERABLES Final Result [facility] [address] [place] [address], * (ABNORMAL) CMP (COMPREHENSIVE METABOLIC PANEL) (05/04/2024 10:15 AM CDT) SODIUM 141 136 - 145 mmol/L 05/04/2024 12:51 PM CDT [facility] POTASSIUM 3.8 3.5 - 5.1 mmol/L 05/04/2024 12:51 PM CDT [facility] CHLORIDE 107 98 - 107 mmol/L 05/04/2024 12:51 PM CDT [facility] CO2, VENOUS 25 22 - 30 mmol/L 05/04/2024 12:51 PM CDT [facility] ANION GAP 12.8 <18.0 mmol/L 05/04/2024 12:51 PM CDT [facility] GLUCOSE 95 70 - 99 mg/dL 05/04/2024 12:51 PM CDT [facility] BUN 17 8 - 26 mg/dL 05/04/2024 12:51 PM CDT [facility] CREATININE, BLOOD 1.47(H) 0.70 - 1.30 mg/dL 05/04/2024 12:51 PM CDT [facility] BUN/CREATININE RATIO 12 12 - 20 ratio 05/04/2024 12:51 PM CDT [facility] TOTAL PROTEIN 7.4 6.3 - 8.2 g/dL 05/04/2024 12:51 PM CDT [facility] ALBUMIN 4.4 3.5 - 5.0 g/dL 05/04/2024 12:51 PM CDT [facility] A/G RATIO 1.5 1.0 - 2.2 05/04/2024 12:51 PM CDT [facility] CALCIUM 10.0 8.7 - 10.5 mg/dL 05/04/2024 12:51 PM CDT [facility] T BILI 0.5 0.2 - 1.2 mg/dL 05/04/2024 12:51 PM CDT [facility] SGOT (AST) 30 5 - 34 U/L 05/04/2024 12:51 PM CDT [facility] SGPT (ALT) 38 0 - 55 U/L 05/04/2024 12:51 PM CDT [facility] ALKALINE PHOSPHATASE 42 40 - 150 U/L 05/04/2024 12:51 PM CDT [facility] IS THE PATIENT REQUIRED TO BE FASTING? No 05/04/2024 12:51 PM CDT [facility] GFR, ESTIMATED 56(L) >=60 05/04/2024 12:51 PM CDT [facility] Comment: Creatinine Clearance is the preferred criteria for selecting drug dose adjustments in renally impaired patients. ??The GFR is provided as additional pertinent clinical information. GFR is reported in mL/min/1.73 sq m. Calculation based on the Chronic Kidney Disease Epidemiology Collaboration (CKD- EPI) equation refit without adjustment for race. GFR, EST. 60 >=60 024 12:51 PM CDT [facility] GFR, EST. NONAFRICAN 50(L) >=60 05/04/2024 12:51 PM CDT [facility] Blood Venipuncture / Unknown 05/04/2024 10:15 AM CDT 05/04/2024 10:15 AM CDT Medhat Benton MD CHEMISTRY ORDERABLES Final Result [facility] [address] [place] [address] * HEMOGLOBIN A1C W/ ESTIMATED GLUCOSE (10/14/2022) HEMOGLOBIN A1C 10.3 % Blood 10/14/2022 us Historical Provider CHEMISTRY ORDERABLES Alida l Result from Last 3 Months or Most Recently Relevant to Health Maintenance Insurance [facility] Advance Directives Documents on File Type Date Recorded Patient Construction Sales Representative Expl anation Other Advance Directive 12/17/2022 11:53 AM CARDIO DENTIST CLEARANCE * Full Code (Latest Code Status on File) Date Activated Date Inactivated Comments 12/24/2019 12:52 PM 12/24/2019 4:48 PM CPR-Full Romina tment: FULL ARREST: Attempt Resuscitation/CPR wit intubation and mechanical ventilation. PRE-ARREST: Use entire range of life support measures to stabilize the patient. * Full Code Date Activated Date Inactivated Comments 09/22/2016 10:03 PM 09/24/2016 3:51 PM CPR-Full Romina tment: FULL ARREST: Attempt Resuscitation/CPR wit intubation and mechanical ventilation. PRE-ARREST: Use entire range of life support measures to stabilize the patient. Care Teams Swahili Teacher Relationship Specialty Start Date End Date Medhat Benton MD [address] [facility] [address] [place] [address] PCP - General Family Medicine 07/05/15 Griffin Miles MD [address] [facility] [address] [place] [address] Consulting Physician Colon and Rectal Surgery 03/12/22 Joao Basilio MD [address] [address] Consulting Physician Cardiovascular Disease - Cardiology 03/27/22
--- OUTSIDE RECORDS SUMMARY | 2024-08-12 02:03 | XMS_ITS | Data Portability ---
Author Organization [facility] [employer] [facility], Main Office Address [address] [place] [address] Care Team Providers Care Manufacturing Engineer Automotive Name Role Phone REYNALDO FIELDS Primary Care Provider [phone] Assessment Encounter Date Assessment Date Assessment LastModified by Organization Details LastModified Time 08/17/2023 08/17/2023 This note is dictated and transcribed by [employer]. Biomedical Engineering Technician variances may occur. Despite proofreading, typographical errors may occur. Occasional wrong-word or ? s ound-a-like? substitutions may have occurred due to the inherent limitations of voice recording. Read the chart carefully and recognize, using context, where substitutions have occurred. [email or web address] Not available 08/17/2023 11:32:15 09/14/2023 09/14/2023 This note is dictated and transcribed by [employer]. Biomedical Engineering Technician variances may occur. Despite proofreading, typographical errors may occur. Occasional wrong-word or ? s ound-a-like? substitutions may have occurred due to the inherent limitations of voice recording. Read the chart carefully and recognize, using context, where substitutions have occurred. [email or web address] Not available 09/14/2023 09:23:58 Plan of Treatment Reminders Order Date Submit Date Provider Last Modified By Organization Details Last Modified Time Details Appointments None record ed. Lab None record ed. Referral None record ed. Procedures None record ed. Surgeries None record ed. Imaging XR, foot, 3 or more view 024 08/17/19 24 [email or web address] [facility] Pod[facility]ry [place], [facility], [place], [address], 01/29/202 4 11:34:45 XR, foot, 3 or more view 024 08/17/19 24 [email or web address] [facility] Podiatry [place], [address], [place], [address], 4 11:34:45 Medication Orders None record ed. Patient TargetsNo targets recorded. Patient InstructionsNo instructions recorded. Reason for Referral None Reported. Results Created Date Observation Date Name Description Value Unit Range Abnormal Flag Note LastModifiedBy Organization Detail LastModifiedTime 08/17/19 24 XR, foot, 3 or more view No observ ation record ed. [email or web address] [facility] Podiatry [place] [address] [facility] [address], [place], [address], 08/17/2023 11:34:42 08/17/19 24 XR, foot, 3 or more view No observ ation record ed. [email or web address] [facility] Podiatry [place] [address], [place], [address], 08/17/2023 11:34:28 Result Notes None recorded. Problems Name Problem SNOMED Code Status Onset Date Resolution Date Notes Provider Name and Address Organization Details Recorded Time Peroneal tendinitis 89883255 Active 2023 Fred Thao DPM [address], [place], [address], [employer] 4 11:31:10 Congenital pes planus 97848486 Active 2023 Fred Thao DPM [address], [place], [address], [employer] 4 11:31:32 Pain in both feet 1624831912062 9102 Active 2023 Fred Thao DPM [address], [place], [address], [employer] 4 11:31:47 Problem Notes None recorded. Procedures Surgical History Date Name Laterality Status Provider Name and Address Organization Details Recorded Time Plantar Fascia Injection ? Left Foot completed Fred Thao DPM [address], [address], [place], [address], [employer] 08/17/2023 11:30:54 Rotator cuff surgery completed Gunjan Garces [facility] 08/17/2023 10:59:45 Imaging Results Imaging Date Name Status LastModified by Organiz ation Details LastModified Time 08/17/2023 XR, foot, 3 or more view completed [email or web address] [facility] [place] [address], [place], [address], 08/17/2023 11:34:42 08/17/2023 XR, foot, 3 or more view completed [email or web address] [place] [address] [facility]iat[facility] [place] [address], [place], [address], 08/17/2023 11:34:28 Procedure Notes None recorded. Medical Equipment None Reported. Allergies No known drug allergies Medications Name Sig Start Date Stop Date Status Note LastModified by Organization Details LastModified Time atorvastati n 80 mg tablet TAKE 1 TABLET BY MOUTH EVERY NIGHT active Not Available Not Available No t Available tizanidine 2 mg tablet TAKE 1 TABLET BY MOUTH EVERY NIGHT NEEDED FOR MUSCLE SPASMS 09/14 completed Not Available Not Available Not Available hydrocodone 5 mg-acetamin ophen 325 mg tablet TAKE 1 TABLET BY MOUTH EVERY 6 HOURS NEEDED FOR PAIN 09/14 completed Not Available Not Available Not Available amoxicillin 500 mg tablet TAKE 1 TABLET THREE TIMES DAILY UNTIL ALL TAKEN 09/14 completed Not Available Not Available Not Available lisinopril 5 mg tablet TAKE 1 TABLET BY MOUTH EVERY DAY active Not Available Not Available No t Available metformin ER 750 mg tablet,exte nded release 24 hr active Not Available Not Available Not Available metoprolol tartrate 25 mg tablet TAKE 1 TABLET BY MOUTH TWICE DAILY active Not Available Not Available No t Available aspirin active Not Available Not Avail able Not Available fenofibrate nanocrystal lized 145 mg tablet TAKE 1 TABLET BY MOUTH DAILY active Not Available Not Available No t Available Brilinta 90 mg tablet TAKE 1 TABLET BY MOUTH TWICE DAILY active Not Available Not Available No t Available Jardiance 25 mg tablet active Not Available Not Available Not Available Soliqua 100/33 100 unit-33 mcg/mL subcutaneou s insulin pen ADMINISTE R 50 UNITS UNDER THE SKIN DAILY active Not Available Not Available No t Available FreeStyle Miguel 3 Sensor device USE DIRECTED AND CHANGE EVERY 14 DAYS 09/14 completed Not Available Not Available Not Available Vitals Date Recorded Heart rate Respiratory rate Oxygen saturation Oxygen saturation in Arterial blood by Pulse oximetry Body height Body mass index (BMI) Body weight Systolic blood pressure Diastolic blood pressure Provider Name and Address Organization Details Last Updated DateTime 4 64 /min 14 /min 99 % 99 % 172.72 cm 31.9 kg/m2 12572.4 g 142 mm[Hg] 85 mm[Hg] Gunjan Yap [facility] [employer] 4 10:13:25 Date Recorded Body height Body mass index (BMI) Body weight Heart rate Respiratory rate Oxygen saturation Oxygen saturation in Arterial blood by Pulse oximetry Systolic blood pressure Diastolic blood pressure Provider Name and Address Organization Details Last Updated DateTime 4 172.72 cm 31.9 kg/m2 25894.4 g 57 /min 14 /min 99 % 99 % 163 mm[Hg] 92 mm[Hg] Gunjan [employer] 4 09:06:48 Social History Question Answer Notes LastModified by Organizat ion Details LastModified Time What Is Your Level Of Alcohol Consumption? None Information not available 08/17/2023 What Is Your Level Of Caffeine Consumption? Occasional Information not available 08/17/2023 What Was The Date Of Your Most Recent Tobacco Screening? 08/17/2023 Information not available 08/17/2023 Do You Use Any Illicit Or Recreational Drugs? No Information not available 08/17/2023 Do You Or Have You Ever Used Any Other Forms Of Tobacco Or Nicotine? No Information not available 08/17/2023 Sex: Unknown Functional Status None recorded. Mental Status None recorded. Family History Nothing Reported. Medical History Condition Response OBESITY Y USE OF BLOOD THINNERS Y DIABETES, TYPE Y Past Encounters Encounter ID Performer Location Encounter Start Date Encounter Closed Date Diagnosis/Indication Diagnosis SNOMED-CT Code Diagnosis ICD10 Code Diagnosis Note [id number] Fred Thao DPM [facility] Podiatry [place] [address] [place] [address] 08/17/2023 10:04:15 08/17/2023 14:02:52 Peroneal tendinitis 41600235 M76.71 M76.72 Peroneal brevis tendinitis Left heel injection todayRecom mend [facility] Congenital pes planus 23 098874 Q66.51 Q66.52 As above Pain in both feet 810941 9123 8489870 M79.671 M79.672 X-rays reviewed bilateral [id number] Fred Thao DPM [facility] Podiatry [place] [address] [place] [address] 09/14/2023 09:00:28 09/14/2023 09:32:09 Peroneal tendinitis 76951369 M76.71 M76.72 Peroneal brevis tendinitis resolvedCo ntinue at-home therapyRec ommend [facility] ecommend supportive shoe gearFollow -up as needed Congenital pes planus 23 718766 Q66.51 Q66.52 As above Health Concerns Section Related Observation LastModified by Organization Detai ls LastModified Time None Recorded Concern Status LastModified by Organization Details LastModified Time None Recorded Advance Directives Directive None Recorded Payers Encounter Date Sequence Insurance Name Policy Number Policy Leigh Covered Member ID Leigh Member ID Guarantor Name 08/17/2023 1 [facility] [id number] [facility] [id number] [facility] 09/14/2023 1 [facility] [id number] [facility] [id number] [facility] Notes Date Note Type Note Provider Name and Address Organization Details Recorded Time 08/17/2023 text/html . Patient is a 57-year-old male who presents the office with complaints of bilateral foot pain. Patient states that he has had this pain for several months starting in 05/08/2023. Patient denies any injury to the feet. 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 Patient states that he also is diabetic. Patient states that he has not had any open wounds or infection of the feet. Patient denies any numbness, tingling burning of the feet. Patient states he has had several heart attacks and has approximately 7 stents in his heart. Patient states he was recently off work for the last 2 weeks secondary to heart attack. Patient states his pain level to his feet is 8/10 and describes it as stabbing, throbbing aching and sharp in nature. Patient states that rest does help to reduce the pain. Patient states the pain is worsened when he is standing and walking. Patient denies any treatment for this condition. Patient denies any other complaints. Fred Thao DPM [address] [place] [address] [address], [place], [address], [employer] 08/17/2023 11:36:16 09/14/2023 text/html . Patient is a 58-year-old male who returns to the office for follow-up on bilateral pes planus and peroneal tendinitis. Patient was educated on orthotics and shoe gear which he continues with his normal shoe gear. Patient also did not obtain any orthotics. Patient states he has been doing his stretching exercises and his tendinitis to the 5th metatarsal base area has completely resolved. Patient denies any other complaints. Fred Thao DPM [address], [place] [address], [place], [address], [employer] 09/14/2023 09:24:14
--- OUTSIDE RECORDS SUMMARY | 2024-08-12 02:03 | XMS_ITS | Encounter Summary ---
Author Organization [facility] Address [address] [place] [address] Phone Care Team Providers Care Baker Pie Name Role Phone Medhat Benton MD Primary Care Provider [phone] Griffin Miles MD Unavailable Joao Basilio MD Unavailable Unavai lable Reason for Visit * Reason Comments Medication Refill Encounter Details Date Type Department Care Team (Late st Contact Info) Description 05/21/2020 Refill [facility] Medical/Surgical Intensive Care [address] [place] [phone] Medhat Benton MD [address] [address] Medication Refill Social History Tobacco Use Types [...] st Contact Info) Description 09/06/2024 9:45 AM BARBER INSTRUCTOR Office Visit [facility] - [facility] [address] [place] [address] Medhta Benton MD [address] [address] documented as of this encounter Visit Diagnoses Not on filedocumented in this encounter Additional Health Concerns Infection Onset Date Last Indicated Resolved Time COVID - 19 06/02/2021 06/02/2021 06/22/2021 12:1 9 AM BARBER INSTRUCTOR Assessment Noted Time PHQ-9 Depression Total Score: 0 12/29/19 20 9:23 AM CDT documented as of this encounter Care Teams Baker Pie Relationship Specialty Start Date End Date Medhat Benton MD [id number] [address] PCP - General Family Medicine 07/05/15 Griffin Miles MD [address] [address] Consulting Physician Colon and Rectal Surgery 03/12/22 Joao Basilio MD #[address] [address] Consulting Physician Cardiovascular Disease - Cardiology 03/27/22 documented as of this encounter
--- OUTSIDE RECORDS SUMMARY | 2024-08-12 02:03 | XMS_ITS | Encounter Summary ---
Author Organization [facility] Address [address] [facility] 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 Not on file Not on file documented as of this encounter Plan of Treatment Upcoming Encounters Date Type Department Care Team (Late Contact Info) Description 09/06/2024 9:45 AM DECORATING SUPERVISOR Office Visit [facility] - [facility] [address] [place] [address] Medhat Benton MD [address] [address] documented as of this encounter Visit Diagnoses Not on filedocumented in this encounter Additional Health Concerns Infection Onset Date Last Indicated Resolved Time COVID - 19 06/02/2021 06/02/2021 06/22/2021 12:1 9 AM DECORATING SUPERVISOR Assessment Noted Time PHQ-9 Depression Total Score: 0 12/29/19 9:23 AM CDT documented as of this encounter Care Teams Lead Cargo Mover Relationship Specialty Start Date End Date Medhat Benton MD [address] [address] PCP - General Family Medicine 07/05/15 Griffin Miles MD [address] [address] Consulting Physician Colon and Rectal Surgery 03/12/22 Joao Basilio MD #[address] [address] Consulting Physician Cardiovascular Disease - Cardiology 03/27/22 documented as of this encounter
--- OUTSIDE RECORDS SUMMARY | 2024-08-12 02:03 | XMS_ITS | Patient Health Summary ---
Author Organization [facility] Address [address] [place] [address] Care Team Providers Care Behavioral Health Specialist Name Role Phone Medhat Benton MD Primary Care Provider [phone] Note from [facility],non-owned Affiliates and Associated Physician Practices is amultiple site organization consisting of ambulatory clinics and hospital sitesin [place], [place], [place] and [place]. This disclosure is being madepursuant to the Care Everywhere program and may not contain all information available regarding this patient. Last updated 18.[facility] Allergies No known active allergies Medications * Be aware that medications may not be up to date on this document. Alwaysverify current medications with the patient. * insulin glargine-lixisenatide (Soliqua) 100-33 UNT-MCG/ML pen Inject 50 (fifty) Units subcutaneously once daily * aspirin (Aspirin) 81 MG chew tablet Take 1 (one) tablet by mouth once daily * empagliflozin (Jardiance) 25 MG tablet Take 1 (one) tablet by mouth once daily * lisinopril (Prinivil; Zestril) 5 MG tablet Take 2 (two) tablets by mouth once daily * metoprolol tartrate IR (Lopressor) 25 MG tablet Take 2 (two) tablets by mouth 2 times daily * atorvastatin (Lipitor) 80 MG tablet Take 1 (one) tablet by mouth at bedtime * metFORMIN ER 24hr (Glucophage XR) 750 MG tablet(Started 08/07/2023) Take 1 (one) tablet by mouth 2 times daily * fenofibrate (Tricor) 145 MG tablet(Started 08/06/2023) Take 1 (one) tablet by mouth once daily for 90 days 2 refills by 08/05/2024 * ticagrelor (Brilinta) 90 MG tablet(Started 08/06/2023) Take 1 (one) tablet by mouth 2 times daily 3 refills by 08/05/2024 * Semaglutide(0.25 or 0.5MG/DOS) 2 MG/1.5ML Solution Pen-injector Inject 0.25 (one-quarter) mg subcutaneously every 7 days Active Problems Problem Noted Date Diagnosed Date ST elevation myocardial infa rction (STEMI), unspecified artery 08/03/2023 Chest pain, unspecified type 08/03/2023 Hypertension, unspecified type 08/03/2023 Coronary artery disease invo lving pala coronary artery of pala heart without angina pectoris 08/03/2023 Social History [...] medical care, and heating? Very hard 08/04/2023 [facility] [place] [facility] Occupat ional Health - Occupational Stress [...] AM CDT Pulse 86 08/06/2023 7:35 AM RETAIL AREA MANAGER Temperature 37.1 ??C (98.8 ??F) 08/06/2023 7:35 AM CS T Respiratory Rate 18 08/06/2023 7:35 AM RETAIL AREA MANAGER Oxygen Saturation 96% 08/06/2023 7:35 AM RETAIL AREA MANAGER Inhaled Oxygen Concentration - - Weight 94.3 kg (207 lb 12.8 oz) 02/12/2024 8:48 AM CDT Height 172.7 cm (5' 8 ) 02/12/2024 8:48 AM CDT Body Mass Index 31.6 02/12/2024 8:48 AM CDT Procedures * CARDIAC REHAB OUTPATIENT(Performed 02/12/2024) Performed for ST elevation myocardial infarction (STEMI), unspecified artery (HCC) * CARDIAC REHAB OUTPATIENT(Performed 02/10/2024) Performed for ST elevation myocardial infarction (STEMI), unspecified artery (HCC) * CARDIAC REHAB OUTPATIENT(Performed 01/13/2024) Performed for ST elevation myocardial infarction (STEMI), unspecified artery (HCC) * CARDIAC REHAB OUTPATIENT(Performed 01/08/2024) Performed for ST elevation myocardial infarction (STEMI), unspecified artery (HCC) * CARDIAC REHAB OUTPATIENT(Performed 01/06/2024) Performed for ST elevation myocardial infarction (STEMI), unspecified artery (HCC) * CARDIAC REHAB OUTPATIENT(Performed 12/23/2023) Performed for ST elevation myocardial infarction (STEMI), unspecified artery (HCC) * CARDIAC REHAB OUTPATIENT(Performed 12/18/2023) Performed for ST elevation myocardial infarction (STEMI), unspecified artery (HCC) * CARDIAC REHAB OUTPATIENT(Performed 12/16/2023) Performed for ST elevation myocardial infarction (STEMI), unspecified artery (HCC) * CARDIAC REHAB OUTPATIENT(Performed 12/09/2023) Performed for ST elevation myocardial infarction (STEMI), unspecified artery (HCC) * CARDIAC REHAB OUTPATIENT(Performed 12/04/2023) Performed for ST elevation myocardial infarction (STEMI), unspecified artery (HCC) * CARDIAC REHAB OUTPATIENT(Performed 11/27/2023) Performed for ST elevation myocardial infarction (STEMI), unspecified artery (HCC) * CARDIAC REHAB OUTPATIENT(Performed 11/11/2023) Performed for ST elevation myocardial infarction (STEMI), unspecified artery (HCC) * CARDIAC REHAB OUTPATIENT(Performed 11/06/2023) Performed for ST elevation myocardial infarction (STEMI), unspecified artery (HCC) * CARDIAC REHAB OUTPATIENT(Performed 11/04/2023) Performed for ST elevation myocardial infarction (STEMI), unspecified artery (HCC) * CARDIAC REHAB OUTPATIENT(Performed 10/30/2023) Performed for ST elevation myocardial infarction (STEMI), unspecified artery (HCC) * CARDIAC REHAB OUTPATIENT(Performed 10/28/2023) Performed for ST elevation myocardial infarction (STEMI), unspecified artery (HCC) * CARDIAC REHAB OUTPATIENT(Performed 10/23/2023) Performed for ST elevation myocardial infarction (STEMI), unspecified artery (HCC) * CARDIAC REHAB OUTPATIENT(Performed 10/21/2023) Performed for ST elevation myocardial infarction (STEMI), unspecified artery (HCC) * CARDIAC REHAB OUTPATIENT(Performed 10/16/2023) Performed for ST elevation myocardial infarction (STEMI), unspecified artery (HCC) * CARDIAC REHAB OUTPATIENT(Performed 10/14/2023) Performed for ST elevation myocardial infarction (STEMI), unspecified artery (HCC) * CARDIAC REHAB OUTPATIENT(Performed 10/07/2023) Performed for ST elevation myocardial infarction (STEMI), unspecified artery (HCC) * CARDIAC REHAB OUTPATIENT(Performed 10/02/2023) Performed for ST elevation myocardial infarction (STEMI), unspecified artery (HCC) * CARDIAC REHAB OUTPATIENT(Performed 09/30/2023) Performed for ST elevation myocardial infarction (STEMI), unspecified artery (HCC) * CARDIAC REHAB OUTPATIENT(Performed 09/25/2023) Performed for ST elevation myocardial infarction (STEMI), unspecified artery (HCC) * CARDIAC REHAB OUTPATIENT(Performed 09/16/2023) Performed for ST elevation myocardial infarction (STEMI), unspecified artery (HCC) * CARDIAC REHAB OUTPATIENT(Performed 09/11/2023) Performed for ST elevation myocardial infarction (STEMI), unspecified artery (HCC) * CARDIAC REHAB OUTPATIENT(Performed 09/09/2023) Performed for ST elevation myocardial infarction (STEMI), unspecified artery (HCC) * CARDIAC REHAB OUTPATIENT(Performed 09/02/2023) Performed for ST elevation myocardial infarction (STEMI), unspecified artery (HCC) * CARDIAC REHAB OUTPATIENT(Performed 08/28/2023) Performed for ST elevation myocardial infarction (STEMI), unspecified artery (HCC) * REFERRAL FOR PHASE II CARDIAC REHAB(Performed 08/26/2023) Performed for ST elevation myocardial infarction (STEMI), unspecified artery (HCC) * CARDIAC RHYTHM STRIP ORDER(Performed 08/07/2023) * BEDSIDE SPIROMETRY(Performed 08/06/2023) * GLUCOSE - POINT OF CARE(Performed 08/06/2023) * BASIC METABOLIC PANEL (CALCIUM TOTAL)(Performed 08/06/2023) * PTT(Performed 08/06/2023) * PT-INR(Performed 08/06/2023) * CBC W AUTO DIFFERENTIAL(Performed 08/06/2023) * GLUCOSE - POINT OF CARE(Performed 08/05/2023) * GLUCOSE - POINT OF CARE(Performed 08/05/2023) * CORONARY ANGIOGRAPHY(Performed 08/05/2023) Performed for ST elevation myocardial infarction (STEMI), unspecified artery (HCC), Chest pain, unspecified type, Coronary artery disease involving pala coronary artery of pala heart without angina pectoris * CCL CORONARY IVUS(Performed 08/05/2023) Performed for ST elevation myocardial infarction (STEMI), unspecified artery (HCC), Chest pain, unspecified type, Coronary artery disease involving pala coronary artery of pala heart without angina pectoris * VAS BILAT ARTERIAL DUPLEX UE(Performed 08/05/2023) Performed for ST elevation myocardial infarction (STEMI), unspecified artery (HCC), Chest pain, unspecified type, Hypertension, unspecified type, Pre-op evaluation, Coronary artery disease involving pala coronary artery of pala heart without angina pectoris * VAS CAROTID DUPLEX BILATERAL(Performed 08/05/2023) Performed for ST elevation myocardial infarction (STEMI), unspecified artery (HCC), Chest pain, unspecified type, Pre-op evaluation * ECHO COMPLETE W CONTRAST(Performed 08/05/2023) Performed for ST elevation myocardial infarction (STEMI), unspecified artery (HCC) * VAS BILATERAL VENOUS MAPPING(Performed 08/05/2023) Performed for ST elevation myocardial infarction (STEMI), unspecified artery (HCC), Chest pain, unspecified type, Pre-op evaluation * GLUCOSE - POINT OF CARE(Performed 08/05/2023) * PTT(Performed 08/05/2023) * GLUCOSE - POINT OF CARE(Performed 08/05/2023) * PTT(Performed 08/05/2023) * PT-INR(Performed 08/05/2023) * CBC W AUTO DIFFERENTIAL(Performed 08/05/2023) * GLUCOSE - POINT OF CARE(Performed 08/05/2023) * PTT(Performed 08/04/2023) * CARDIAC EKG ORDER(Performed 08/04/2023) * CARDIAC PROCEDURE ORDER(Performed 08/04/2023) * GLUCOSE - POINT OF CARE(Performed 08/04/2023) * XR CHEST 2VW(Performed 08/04/2023) Performed for ST elevation myocardial infarction (STEMI), unspecified artery (HCC), Chest pain, unspecified type, Pre-op evaluation * GLUCOSE - POINT OF CARE(Performed 08/04/2023) * CARDIAC EKG ORDER(Performed 08/04/2023) * PTT(Performed 08/04/2023) * GLUCOSE - POINT OF CARE(Performed 08/04/2023) * GLUCOSE - POINT OF CARE(Performed 08/04/2023) * PTT(Performed 08/04/2023) * BASIC METABOLIC PANEL (CALCIUM TOTAL)(Performed 08/04/2023) * CBC W AUTO DIFFERENTIAL(Performed 08/04/2023) * HEMOGLOBIN A1C(Performed 08/04/2023) * TROPONIN-I HIGH SENSITIVE REFLEX 1HOUR(Performed 08/04/2023) * GLUCOSE - POINT OF CARE(Performed 08/04/2023) * CCL CORONARY STENT(Performed 08/03/2023) Performed for ST elevation myocardial infarction (STEMI), unspecified artery (HCC) * CCL LEFT HEART CATH(Performed 08/03/2023) Performed for ST elevation myocardial infarction (STEMI), unspecified artery (HCC) * XR CHEST 1VW PORTABLE(Performed 08/03/2023) Performed for ST elevation myocardial infarction (STEMI), unspecified artery (HCC) * TROPONIN-I HIGH SENSITIVE BASELINE + 1HR(Performed 08/03/2023) * CBC W AUTO DIFFERENTIAL(Performed 08/03/2023) * B-TYPE NATRIURETIC PEPTIDE(Performed 08/03/2023) * COMPREHENSIVE METABOLIC PANEL(Performed 08/03/2023) * PTT(Performed 08/03/2023) * PT-INR(Performed 08/03/2023) * EKG 12-LEAD(Performed 08/03/2023) Performed for ST elevation myocardial infarction (STEMI), unspecified artery (HCC) Results * CARDIAC REHAB OUTPATIENT (02/12/2024 7:57 AM CDT) Only the most recent of29 resultswithin the time period is included. Shadi Wynne MD CARDIAC REHAB ORDEROliva MORRIS Performing Organization Address [facility] Co de Phone Number [facility] Nala * Referral to Cardiac Rehab Phase II (08/26/2023 8:22 AM RETAIL AREA MANAGER) Josue Woodard MD CARDIAC REHAB ORDEROliva MORRIS Performing Organization Address [facility] de Phone Number [facility] Nala * CARDIAC RHYTHM STRIP ORDER (08/07/2023 9:40 PM RETAIL AREA MANAGER) Narrative 08/07/2023 9:40 PM RETAIL AREA MANAGER Ordered by an unspecified provider. Scanned Document CARDIAC SERVICES ORD ERABLES * Simple PFT (08/06/2023 3:21 PM RETAIL AREA MANAGER) Narrative [facility] MEDQUIST - 08/06/2023 3:21 PM RETAIL AREA MANAGER Slim Tyson, DO ? 08/11/2023 11:00 AM [facility] - PULMONARY DISEASE PULMONARY FUNCTION TEST DATE: 08/05/2023 Please see technologist's comments mentioned in the report. INTERPRETATION: SPIROMETRY: ?FVC: normal. ?FEV1: normal. ?FEV1/FVC ratio is normal. BRONCHODILATOR RESPONSE: Not performed. FLOW-VOLUME LOOPS: Inspection of the flow-volume loops shows normal flow-volume loops. IMPRESSION: 1. Normal spirometry. 2. There is no previous study available for comparison. Slim Tyson DO Pulmonary Disease Maria G Koehler PA-C RESPIRATORY THE RAPY ORDERABLES Performing Organization Address [facility] de [facility] * (ABNORMAL) GLUCOSE - POINT OF CARE (08/06/2023 5:37 AM RETAIL AREA MANAGER) Only the most recent of11 resultswithin the time period is included. Glucose WB/POC 158(H) 70 - 106 mg/dL 08/06/2023 5:38 AM RETAIL AREA MANAGER [facility] Specimen Type Cap Fingerstick 2023 5:38 AM RETAIL AREA MANAGER [facility] Blood BLOOD SPECIMEN / Unknown 08/06/2023 5:37 AM RETAIL AREA MANAGER 08/06/2023 5:38 AM RETAIL AREA MANAGER Jay Nava MD LAB - POINT OF CARE ORDERABLES Performing Organization Address [facility] de Phone Number [facility] [id number] [place] [address] * PTT (08/06/2023 3:31 AM RETAIL AREA MANAGER) Only the most recent of7 resultswithin the time period is included. PTT 27.8 23.0 - 38.4 sec 08/06/2023 4:18 AM RETAIL AREA MANAGER [facility] Blood BLOOD SPECIMEN / Unknown Venipuncture / Unknown 08/06/2023 3:31 AM RETAIL AREA MANAGER 08/06/2023 3:39 AM RETAIL AREA MANAGER Narrative [facility] - 08/06/2023 4:18 AM RETAIL AREA MANAGER Heparin Therapeutic Range for PTT: ??69.0 - 110.0 seconds. Katherine Garnica MD LAB - COAGULATION OR DERABLES Performing Organization Address [facility] de Phone Number [facility] [address] [place] [address] * PT-INR (08/06/2023 3:31 AM RETAIL AREA MANAGER) Only the most recent of3 resultswithin the time period is included. Pathologist [facility] PT 13.0 12.1 - 14.8 sec 08/06/2023 4:18 AM [facility] INR 1.0 0.9 - 1.1 08/06/2023 4:18 AM [facility] Blood BLOOD SPECIMEN / Unknown Venipuncture / Unknown 08/06/2023 3:31 AM RETAIL AREA MANAGER 08/06/2023 3:39 AM RETAIL AREA MANAGER [facility] - 08/06/2023 4:18 AM RETAIL AREA MANAGER Conventional Warfarin Anticoagulant Therapy: INR Reference Range: ??2.0-3.0 Intensive Warfarin Anticoagulant Therapy: INR Reference Range: ? 2.5-3.5 Katherine Garnica MD LAB - COAGULATION OR DERABLES Performing Organization Address City/State/[facility] Co de Phone Number [facility] [address] [place] [address] * (ABNORMAL) CBC W AUTO DIFFERENTIAL (08/06/2023 3:31 AM RETAIL AREA MANAGER) Only the most recent of4 resultswithin the time period is included. Pathologist [facility] WBC 8.9 4.0 - 10.7 x10E9/L 08/06/2023 3:47 AM [facility] RBC Count 5.24 4.30 - 5.80 x10E12/L 08/06/2023 3:47 AM [facility] Hemoglobin 15.0 13.3 - 17.5 g/dL 08/06/2023 3:47 AM [facility] Hematocrit 44.8 38.7 - 51.1 % 08/06/2023 3:47 AM [facility] MCV 85.5 80.0 - 98.0 fL 08/06/2023 3:47 AM [facility] MCH 28.6 26.7 - 33.6 pg 08/06/2023 3:47 AM [facility] MCHC 33.5 31.7 - 36.3 g/dL 08/06/2023 3:47 AM [facility] RDW-CV 12.5 11.3 - 14.8 % 08/06/2023 3:47 AM [facility] Platelet Count 264 150 - 420 x10E9/L 08/06/2023 3:47 AM [facility] MPV 10.7 7.8 - 11.4 fL 08/06/2023 3:47 AM [facility] Neutrophil % 75.8(H) 41.0 - 74.0 % 08/06/2023 3:47 AM [facility] Lymphocyte % 12.6(L) 17.0 - 47.0 % 08/06/2023 3:47 AM [facility] Monocyte % 10.9 3.0 - 11.0 % 08/06/2023 3:47 AM [facility] Eosinophil % 0.2 0.0 - 7.0 % 08/06/2023 3:47 AM [facility] Basophil % 0.1 0.0 - 1.6 % 08/06/2023 3:47 AM [facility] Immature Granulocytes % 0.4 0.0 - 1.0 % 08/06/2023 3:47 AM [facility] Neutrophil Absolute 6.77 1.60 - 7.50 x10E9/L 08/06/2023 3:47 AM [facility] Lymphocyte Absolute 1.13 1.00 - 4.40 x10E9/L 08/06/2023 3:47 AM [facility] Monocyte Absolute 0.97 0.15 - 1.00 x10E9/L 08/06/2023 3:47 AM [facility] Eosinophil Absolute 0.02 0.00 - 0.60 x10E9/L 08/06/2023 3:47 AM [facility] Basophil Absolute 0.01 0.00 - 0.13 x10E9/L 08/06/2023 3:47 AM [facility] Blood BLOOD SPECIMEN / Unknown Venipuncture / Unknown 08/06/2023 3:31 AM RETAIL AREA MANAGER 08/06/2023 3:38 AM [facility] Katherine Garnica MD LAB - HEMATOLOGY ORD ERABLES [facility] [address] [place] [address] * (ABNORMAL) BASIC METABOLIC PANEL (CALCIUM TOTAL) (08/06/2023 3:31 AM RETAIL AREA MANAGER) Only the most recent of2 resultswithin the time period is included. [facility] Glucose 257(H) 70 - 105 mg/dL 08/06/2023 3:57 AM [facility] Sodium 136 136 - 145 mmol/L 08/06/2023 3:57 AM [facility] Potassium 4.3 3.5 - 5.1 mmol/L 08/06/2023 3:57 AM [facility] Chloride 106 98 - 107 mmol/L 08/06/2023 3:57 AM [facility] CO2 23 22 - 29 mmol/L 08/06/2023 3:57 AM [facility] Calcium 8.6 8.4 - 10.4 mg/dL 08/06/2023 3:57 AM [facility] Anion Gap 7 6 - 16 mmol/L 08/06/2023 3:57 AM [facility] BUN 12 7 - 26 mg/dL 08/06/2023 3:57 AM [facility] Creatinine 0.96 0.72 - 1.25 mg/dL 08/06/2023 3:57 AM [facility] eGFR by CKD-EPI >90 >=90 mL/min/1.7 3 m2 08/06/2023 3:57 AM [facility] Blood BLOOD SPECIMEN / Unknown Venipuncture / Unknown 08/06/2023 3:31 AM RETAIL AREA MANAGER 08/06/2023 3:39 AM RETAIL AREA MANAGER Josue Woodard MD LAB - CHEMISTRY [place]RAX[place] DEAN [facility] Organization Address City/State/ZIP Co de Phone Number [facility] [address] [place] [address] * CCL CORONARY IVUS, CORONARY ANGIOGRAPHY (08/05/2023 4:31 PM RETAIL AREA MANAGER) Only the most recent of2 resultswithin the time period is included. Anatomical Region Laterality Modality X-Ray Angiograph y Narrative 08/05/2023 5:08 PM RETAIL AREA MANAGER ?Patent ostial LAD stent by angiography and intravascular ultrasound ?IFR of proximal LAD stent within normal limits ?IFR of distal LAD severely reduced Reason for Procedure The patient is a very pleasant 57 year old male with a history including CAD, hypertension, dyslipidemia, multiple prior PCI to the LAD, OM branch of CFX, and RCA, presented with chest pain. ECG revealed anterior ST elevation with spontaneous resolution and suspected ostial LAD nonocclusive thrombus (in-stent). He was placed on heparin infusion and resumed DAPT. He is referred for repeat angiography and intravascular imaging. Procedure Details Estimated Blood Loss: 10 mL Coronary Findings Diagnostic Dominance: Right Left Main: Previously placed Dist LM to Prox LAD stent of unknown type is widely patent. BARBRA flow is 3. The lesion is thrombotic. iFR was measured. iFR ratio: 0.92. Ultrasound (IVUS) was performed. Minimal plaque burden was detected. First Diagonal Branch: The vessel is small in size. There is severe diffuse disease throughout the vessel. Left Circumflex: Prox Cx to Mid Cx lesion is 50% stenosed. First Obtuse Marginal Branch: 1st Mrg lesion is 90% stenosed. Second Obtuse Marginal Branch: Previously placed 2nd Mrg stent of unknown type is widely patent. Right Coronary Artery: Previously placed Mid RCA to Dist RCA stent of unknown type is widely patent. Intervention No interventions have been documented. Recommendations - Maximal medical therapy including DAPT, high intensity statin. Josue Woodard MD CV CARDIAC CATH CUPI D PROCS * VAS BILAT ARTERIAL DUPLEX UE (08/05/2023 3:30 PM RETAIL AREA MANAGER) Anatomical Region Laterality Modality Upper Extremity Ultrasound 08/05/2023 2:33 PM RETAIL AREA MANAGER Narrative Procedure Note Eusebio Luke MD - 08/06/[address] [address] Upper Extremity Arterial Ultrasound Report Pat.Name: JEFF JOSEKo Qiu.ID: [id number] .Date: 08/05/2023 Exam Time: 2:33:00 PM Study Type:UE Arterial Age: 2 1965,57Y Sex: MALE Sonogrphr: Zan Thompson RVT Pat. Stat.:Inpatient Room: 652 ICD - 9: I21.3, R07.9, I10, Z01.818, I25.10 [facility] - 4: [id number] Reason for Study: Chest pain, Pre-op evaluation, ST elevation myocardial infarction (STEMI), Hypertension, Coronary artery disease involving pala coronary artery of pala heart without angina pectoris Procedures: Upper Extremity Arterial Duplex - Bilateral Race: A Visit ID: [id number] ++++++++++++++++++++++++++++++++++++ SUMMARY: ++++++++++++++++++++++++++++++++++++ Patent bilateral radial ulnar artery with the aforementioned measurements. Palmar arch appears to be intact bilaterally with the ulnar artery being the dominant flow bilaterally. ++++++++++++++++++++++++++++++++++++ FINDINGS: ++++++++++++++++++++++++++++++++++++ Procedure: B-mode imaging, color flow Doppler and spectral analysis were used to examine the arteries of both upper extremities with Josh's testing. Study Quality: This study is of adequate technical quality. Rt Arm: Arterial doppler waveforms of the Rt brachial artery and radial artery are triphasic.. The radial artery measures (in diameter) 2.0 mm in the proximal forearm, 2.1 mm mid forearm, and 1.8 mm distal forearm. The Ulnar artery appears dominant with radial and ulnar compression and appears to be a complete arch. Lt Arm: Arterial doppler waveforms of the Lt brachial artery and radial artery are triphasic. The radial artery measures (in diameter) 2.7 mm in the proximal forearm, 2.2 mm mid forearm, and 2.1 mm distal forearm. The Ulnar artery appears dominant with radial and ulnar compression and appears to be a complete arch. ++++++++++++++++++++++++++++++++++++ MEASUREMENTS: ++++++++++++++++++++++++++++++++++++ DOPPLER 3rd Digit Right 3rd Digit 0 Right 3rd Digit 0 [address] Signed 08/06/2023 12:32 PM Eusebio Luke MD Maria G Koehler PA-C VASCULAR LAB OR DERABLES * VAS CAROTID DUPLEX BILATERAL (08/05/2023 3:13 PM RETAIL AREA MANAGER) Anatomical Region Laterality Modality Neck Ultrasound 08/05/2023 2:21 PM RETAIL AREA MANAGER Narrative Procedure Note Eusebio Luke MD - 08/06/[address] [address] Carotid Duplex Report Pat.Name: JOSE AGUILAR Pat.ID: [id number] .Date: 08/05/2023 Exam Time: 2:21:00 PM Study Type:Carotid Age: 2 1965,57Y Sex: MALE Sonogrphr: Michel Sandoval RVT Pat. Stat.:Inpatient Room: 652 Bed 01 Reason for Study: Chest pain, Pre-op evaluation, ST elevation myocardial infarction, unspecified artery Procedures: Carotid Duplex - Bilateral Race: A Visit ID: [id number] ++++++++++++++++++++++++++++++++++++ SUMMARY: ++++++++++++++++++++++++++++++++++++ Evidence of minimal disease is seen in bilateral carotid systems. ++++++++++++++++++++++++++++++++++++ FINDINGS: ++++++++++++++++++++++++++++++++++++ Procedure: The extracranial carotid systems were examined bilaterally with duplex and color flow imaging as well as spectral Doppler analysis. Study Quality: Technically difficult exam due to facial hair. Rt CCA: There is smooth,homogenous plaque in the distal common carotid artery. Rt ICA: There is smooth, heterogenous plaque in the proximal ICA. Rt Vert: Antegrade flow within the right vertebral Artery. Lt CCA: There is smooth, heterogenous plaque in the common carotid artery. Lt ICA: Left internal carotid artery is tortuous. No obvious plaquing seen. Lt Vert: Antegrade flow within the left vertebral Artery. Carotid Findings: Right Left Verteb.Flw Antegrade Antegrade ++++++++++++++++++++++++++++++++++++ MEASUREMENTS: ++++++++++++++++++++++++++++++++++++ DOPPLER Left CCA Dist CCA Dist PSV 109 cm/s CCA Dist EDV 30.6 cm/s Left CCA Mid CCA Mid PSV 87 cm/s CCA Mid EDV 26.1 cm/s Left CCA Prox CCA Prox PSV 83.9 cm/s CCA Prox EDV 24.9 cm/s Left ECA ECA PSV 103 cm/s Left ICA Dist ICA Dist PSV 115 cm/s ICA Dist EDV 46.8 cm/s Left ICA Prox ICA Prox PSV 81.4 cm/s ICA Prox EDV 32.3 cm/s Left ICA/CCA ICA/CCA PSV 0.94 Left Vertebral Vertebral PSV 65.9 cm/s Vertebral EDV 24.2 cm/s Right CCA Dist CCA Dist PSV 93.9 cm/s CCA Dist EDV 28.7 cm/s Right CCA Mid CCA Mid PSV 94.6 cm/s CCA Mid EDV 27.3 cm/s Right CCA Prox CCA Prox PSV 55 cm/s CCA Prox EDV 11.8 cm/s Right ECA ECA PSV 117 cm/s Right ICA Dist ICA Dist PSV 76.4 cm/s ICA Dist EDV 29.4 cm/s Right ICA Prox ICA Prox PSV 82.7 cm/s ICA Prox EDV 24.5 cm/s Right ICA/CCA ICA/CCA PSV 0.87 Right Vertebral Vertebral PSV 34.1 cm/s Vertebral EDV 10.6 cm/s Signed 08/06/2023 12:30 PM Eusebio Luke MD Maria G M Tegerdine PA-C VASCULAR LAB OR DERABLES * ECHO COMPLETE W CONTRAST (08/05/2023 2:30 PM RETAIL AREA MANAGER) BSA 2.36594 m2 SSM CV FUJ I PACS LV biplane EF 52 52 - 72 % SSM CV FUJI PACS LV A2C EF 49 48 - 76 % SSM CV FUJ I PACS LV A4C EF 52 46 - 74 % SSM CV FUJ I PACS LV stroke vol BP 58.2 mL SSM CV FUJI PACS LV stroke vol BP index 26.2 mL/m2 SSM CV FUJI PACS LVOT stroke vol 81.43 mL SSM CV FUJI PACS LVOT stroke vol index 36.63 mL/m2 SSM CV FUJI PACS LV stroke vol 2D teich 58.395 ml SSM CV FUJI PACS LV Stroke Index 2D Teich 26.27 mL/m2 SSM CV FUJI PACS LV stroke vol index A4C MOD 67.471 ml/m2 SSM CV FUJI PACS LVIDd 5.16 4.2 - 5.8 cm SSM CV FUJI PACS IVSd MM 1.807 0.6 - 1 cm SSM CV FUJI PACS LVIDs 3.97 2.5 - 4.0 cm SSM CV FUJI PACS IVSd 2D 1.054 0.6 - 1 cm SSM CV FUJI PACS LVPWd 1.04 0.6 - 1 cm SSM CV FUJI PACS Fractional Shortening 2D 27 28 - 44 % SSM CV FUJI PACS LV ESV BP 53.928 21 - 61 mL SSM CV FUJI PACS LV ESV index BP 24.3 11 - 31 mL/m2 SSM CV FUJI PACS LV ESV A2C 61.979 15 - 75 mL SSM CV FUJI PACS LV ESV index A2C 27.88 9 - 37 mL/m2 SSM CV FUJI PACS LV EDV BP 112.155 62 - 150 mL SSM CV FUJI PACS LV ESV A4C 46.808 22 - 78 mL SSM CV FUJI PACS LV ESV index A4C 21.05 12 - 40 mL/m2 SSM CV FUJI PACS LV EDV index BP 50.4 34 - 74 mL/m2 SSM CV FUJI PACS LV EDV A2C 92.312 59 - 175 mL SSM CV FUJI PACS LV EDV index A2C 41.52 31 - 87 mL/m2 SSM CV FUJI PACS LV EDV A4C 129.45 mL SSM CV FU JI PACS LV ESV 2D 68.614 21 - 61 mL SSM CV FUJI PACS LV EDV index A4C 58.23 37 - 93 mL/m2 SSM CV FUJI PACS LV ESV index 2D 30.86 11 - 31 mL/m2 SSM CV FUJI PACS LV EDV 2D 127.009 62 - 150 mL SSM CV FUJI PACS LV EDV index 2D 57.13 34 - 74 mL/m2 SSM CV FUJI PACS LVOT diam 2.3 cm SSM CV FUJ I PACS LVOT area 4.11 cm2 SSM CV FUJ I PACS LV RWT 0.404 SSM CV FUJ I PACS LV Bell A2C 7.949 cm SSM CV F UJI PACS LV Bell A4C 8.385 cm SSM CV F UJI PACS IVS/LVPW 1.012 SSM CV FUJ I PACS Fractional Shortening M-Mode 29 28 - 44 % SSM CV FUJ I PACS LV mass m-mode 474.17 88 - 224 g SSM CV FUJI PACS LV mass index m-mode 213.29 49 - 115 g/m2 SSM CV FUJI PACS LV mass 2D 203.912 96 - 200 g SSM CV FUJI PACS LV mass index 2D 91.72 50 - 102 g/m2 SSM CV FUJI PACS MV E pk odell 47.062 cm/s SSM CV F UJI PACS MV avg E/e' ratio 9.38 SS M CV FUJI PACS MV A pk odell 70.253 cm/s SSM CV F UJI PACS MV E A ratio 0.67 SSM CV FUJI PACS MV E' lateral odell 5.515 cm/s SS M CV FUJI PACS MV DT 256 ms SSM CV FUJ I PACS MV E' septal odell 4.604 cm/s SSM CV FUJI PACS MV E/e' septal 10.222 SSM C V FUJI PACS MV E/e' lateral 8.534 SSM CV FUJI PACS TR pk odell 188.5 cm/s SSM CV FUJ I PACS LVOT pk odell 0.98 m/s SSM CV F UJI PACS LVOT mn odell 0.65 m/s SSM CV F UJI PACS LVOT mn grad 2.0 mmHg SSM CV FUJI PACS LVOT Cardiac Output 5.644 l/min SSM CV FUJI PACS LVOT Cardiac Index 2.54 l/min/m2 S SM CV FUJI PACS LA vol BP A-L 57.108 mL SSM CV FUJI PACS TAPSE 1.744 1.7 cm SSM CV FUJ I PACS RA area 16.824 cm2 SSM CV FUJ I PACS AV mn grad 3 mmHg SSM CV FU JI PACS AV pk grad 5 mmHg SSM CV FU JI PACS AV mn odell 0.82 m/s SSM CV FUJ I PACS AV pk odell 1.15 m/s SSM CV FUJ I PACS AV VTI 25.098 cm SSM CV FUJ I PACS LVOT pk grad 3.817 mmHg SSM CV FUJI PACS LVOT VTI 19.829 cm SSM CV FUJ I PACS AV area cont VTI 3.2 cm2 SSM CV FUJI PACS AV area pk odell 3.5 cm2 SSM C V FUJI PACS AV Doppler odell index pk odell 0.847 SSM CV FUJI PACS Dimensionless Index 0.79 SSM CV FUJI PACS MV decel slope 184.046 cm/s2 SSM C V FUJI PACS TR pk grad 14 mmHg SSM CV FU JI PACS NV pk odell 131.22 cm/s SSM CV FUJ I PACS NV pk grad 7 mmHg SSM CV FU JI PACS PV pk odell 94.44 cm/s SSM CV FUJ I PACS PV pk grad 4 mmHg SSM CV FU JI PACS LA ESV A4C MOD Index 23 ml/m2 SSM CV FUJI PACS LA ESV A2C MOD Index 25 ml/m2 SSM CV FUJI PACS [id number] 7.262 cm SSM CV FUJ I PACS [id number] 7.141 cm SSM CV FUJ I PACS EF M-Mode 53 % SSM CV FUJ I PACS LA Size 4.314 cm SSM CV FUJ I PACS LVIDs index 1.78 1.3 - 2.1 cm/m2 [facility] CV [employer] PACS LV LVIDd index 2.32 2.2 - 3.0 cm/m2 [facility] CV [employer] PACS Anatomical Region Laterality Modality Ultrasound Narrative 08/05/2023 5:18 PM RETAIL AREA MANAGER ?Left??Ventricle: Left ventricle size is normal. Normal wall thickness. Normal systolic function with a visually estimated EF of 55 - 60%. Regional wall motion abnormalities present. Grade I diastolic dysfunction with normal left atrial pressure. ?Right??Atrium: Right atrium size is normal. ?Right??Ventricle: Right ventricle size is normal. Normal systolic function. ?Left??Atrium: Left atrium size is normal. ?Tricuspid??Valve: Mild regurgitation. ?Mitral??Valve: Mild regurgitation. Left Ventricle Left ventricle size is normal. Normal wall thickness. Normal systolic function with a visually estimated EF of 55 - 60%. Regional wall motion abnormalities present. Grade I diastolic dysfunction with normal left atrial pressure. Right Ventricle Right ventricle size is normal. Normal systolic function. Left Atrium Left atrium size is normal. Right Atrium Right atrium size is normal. IVC/SVC IVC diameter is less than or equal to 21 mm and decreases greater than 50% during inspiration; therefore the estimated right atrial pressure is normal (~3 mmHg). Mitral Valve Valve structure is normal. No restricted motion. Mild regurgitation. No stenosis. Tricuspid Valve Valve structure is normal. No restricted motion. Mild regurgitation. No stenosis. Aortic Valve Valve structure is trileaflet. No restricted motion. No regurgitation. No stenosis. Pulmonic Valve Valve structure is normal. No restricted motion. No regurgitation. No stenosis. Ascending Aorta Normal sized sinus of Valsalva (aortic root) and ascending aorta. Pericardium No pericardial effusion. Study Details Study quality was adequate. A complete 2D, color Doppler, spectral Doppler and M-mode echocardiogram was performed. The apical, parasternal, subcostal and suprasternal views were obtained. Definity ultrasound enhancing agent used. Technical difficulties due to patient supine position. Wall Scoring Baseline Score Index: 3.00 The following segments are akinetic: mid anteroseptal. Other segments could not be evaluated. Procedure Note Josue Woodard MD - 08/05/2023 ? ? Left??Ventricle: Left ventricle size is normal. Normal wall thickness.Normal systolic function with a visually estimated EF of 55 - 60%.Regional wall motion abnormalities present. Grade I diastolic dysfunctionwith normal left atrial pressure. ? ? Right??Atrium: Right atrium size is normal. ? ? Right??Ventricle: Right ventricle size is normal. Normal systolicfunction. ? ? Left??Atrium: Left atrium size is normal. ? ? Tricuspid??Valve: Mild regurgitation. ? ? Mitral??Valve: Mild regurgitation. Josue Woodard MD ECHO CUPID * VAS BILATERAL VENOUS MAPPING (08/05/2023 2:25 PM RETAIL AREA MANAGER) Anatomical Region Laterality Modality Upper Extremity, Lower Extremity Ultrasound 08/05/2023 2:05 PM RETAIL AREA MANAGER Narrative Procedure Note Eusebio Luke MD - 08/06/2023 [place] [id number] Lower Extremity Vein Mapping Report Pat.Name: JOSE AGUILAR Pat.ID: [id number] St.Date: 08/05/2023 Exam Time: 2:05:00 PM Study Type:LE Vein Mapping Age: 2 1965,57Y Sex: MALE Sonogrphr: Michel Sandoval RVRogelio Pat. Stat.:Inpatient Room: 652 Bed 01 Reason for Study: Chest pain, Pre-op evaluation, ST elevation myocardial infarction, unspecified artery Procedures: Lower Extremity Vein Mapping - Bilateral Race: A Visit ID: [id number] ++++++++++++++++++++++++++++++++++++ SUMMARY: ++++++++++++++++++++++++++++++++++++ Patent bilateral greater saphenous and lesser saphenous vein with the aforementioned measurements. ++++++++++++++++++++++++++++++++++++ FINDINGS: ++++++++++++++++++++++++++++++++++++ Procedure: Duplex vein mapping was carried out in both lower extremities. Study Quality: This study is of adequate technical quality. Right Leg: All vessels seen appear patent and compressible. Left Leg: All vessels seen appear patent and compressible. ++++++++++++++++++++++++++++++++++++ MEASUREMENTS: ++++++++++++++++++++++++++++++++++++ LEVEINS Left Dist Calf Dist Calf GSV A 1.9 mm Left Dist Thigh Dist Thigh GSV 2.8 mm Left Knee Knee GSV AP 3 mm Left Mid Calf Mid Calf GSV AP 1.9 mm Mid Calf LSV AP 2.9 mm Left Mid Thigh Mid Thigh GSV A 4.2 mm Left Pop Fossa Pop Fossa LSV A 3 mm Left Prox Calf Prox Calf GSV A 2.3 mm Prox Calf LSV A 2.7 mm Left Prox Thigh Prox Thigh GSV 5.3 mm Left SFJ SFJ GSV AP 7.3 mm Right Dist Calf Dist Calf GSV A 2.3 mm Right Dist Thigh Dist Thigh GSV 2.7 mm Right Knee Knee GSV AP 2.5 mm Right Mid Calf Mid Calf GSV AP 2.1 mm Mid Calf LSV AP 2.1 mm Right Mid Thigh Mid Thigh GSV A 3.5 mm Right Pop Fossa Pop Fossa LSV A 2.5 mm Right Prox Calf Prox Calf GSV A 2.5 mm Prox Calf LSV A 2.6 mm Right Prox Thigh Prox Thigh GSV 3.2 mm Right SFJ SFJ GSV AP 6.2 mm Signed 08/06/2023 12:29 PM Eusebio Luke MD Maria G Koehler PA-C VASCULAR LAB OR DERABLES * CARDIAC EKG ORDER (08/04/2023 8:58 PM RETAIL AREA MANAGER) Only the most recent of2 resultswithin the time period is included. Narrative 08/04/2023 8:58 PM RETAIL AREA MANAGER Ordered by an unspecified provider. Scanned Document CARDIAC SERVICES ORD ERABLES * CARDIAC PROCEDURE ORDER (08/04/2023 8:58 PM RETAIL AREA MANAGER) Narrative 08/04/2023 8:58 PM RETAIL AREA MANAGER Ordered by an unspecified provider. Scanned Document CARDIAC SERVICES ORD ERABLES * XR CHEST 2VW (08/04/2023 6:16 PM RETAIL AREA MANAGER) Anatomical Region Laterality Modality Chest Radiographic Tana ging 08/04/2023 6:27 PM RETAIL AREA MANAGER Impressions 08/04/2023 6:31 PM RETAIL AREA MANAGER IMPRESSION: No acute cardiopulmonary findings. > Interpreting Provider: Joe Felipe MD on 08/04/2023 6:31 PM Narrative 08/04/2023 6:31 PM RETAIL AREA MANAGER PROCEDURE(s): XR CHEST 2VW DATE AND TIME OF EXAM(s): 08/04/2023 6:17 PM INDICATION(s): I21.3: ST elevation (STEMI) myocardial infarction of unspecified site (CMS-HCC) R07.9: Chest pain, unspecified Z01.818: Encounter for other preprocedural examination COMPARISON(s): Chest radiograph dated 08/03/2023. FINDINGS: The cardiomediastinal silhouette is normal. The pulmonary vasculature is unremarkable. The lungs are clear. There is no pleural effusion. There is no pneumothorax. No acute osseous abnormalities are seen. Procedure Note Joe Felipe MD - 08/04/2023 PROCEDURE(s): XR CHEST 2VW DATE AND TIME OF EXAM(s): 08/04/2023 6:17 PM INDICATION(s): I21.3: ST elevation (STEMI) myocardial infarction of unspecified site (CMS-HCC) R07.9: Chest pain, unspecified Z01.818: Encounter for other preprocedural examination COMPARISON(s): Chest radiograph dated 08/03/2023. FINDINGS: The cardiomediastinal silhouette is normal. The pulmonary vasculature is unremarkable. The lungs are clear. There is no pleural effusion. There is no pneumothorax. No acute osseous abnormalities are seen. IMPRESSION: No acute cardiopulmonary findings. > Interpreting Provider: Joe Felipe MD on 08/04/2023 6:31 PM Maria G Koehler PA-C DIAGNOSTIC IMAG ING ORDERABLES * (ABNORMAL) TROPONIN-I HIGH SENSITIVE REFLEX 1HOUR (08/04/2023 12:52 AM RETAIL AREA MANAGER) Troponin I High Sensitive 3,020(HH) <=35 ng/L 08/04/2023 1:26 AM RETAIL AREA MANAGER [facility] Delta Troponin I HS 08/04/2023 1:26 AM RETAIL AREA MANAGER [facility] Comment:Delta value intentio gregg not calculated. Baseline to 1 hour specimen collection interval exceeded. Blood BLOOD SPECIMEN / Unknown Venipuncture / Unknown 08/04/2023 12:52 AM RETAIL AREA MANAGER 08/04/2023 12:59 AM RETAIL AREA MANAGER Katherine Garnica MD LAB - CHEMISTRY [place] DEAN [facility] Organization Address City/State/[facility] Co de Phone Number [facility] [id number] [place] [address] * (ABNORMAL) HEMOGLOBIN A1C (08/04/2023 12:52 AM RETAIL AREA MANAGER) Hemoglobin A1c 8.2(H) <5.7 % 08/04/2023 1:10 AM RETAIL AREA MANAGER [facility] Estimated Average Glucose 189 mg/dL 08/04/2023 1:10 AM RETAIL AREA MANAGER [facility] Blood BLOOD SPECIMEN / Unknown Venipuncture / Unknown 08/04/2023 12:52 AM RETAIL AREA MANAGER 08/04/2023 1:00 AM RETAIL AREA MANAGER Narrative [facility] - 08/04/2023 1:10 AM RETAIL AREA MANAGER HbA1c Interpretation: Normal: < 5.7% Pre-diabetes: 5.7-6.4% Diabetes: Equal to or greater than 6.5% Test results diagnostic of diabetes should be repeated for confirmation. Treatment target values recommended by ADA and other clinical organizations should be used to evaluate metabolic control in patients. This test should not replace glucose testing for patients with Type 1 diabetes, pediatric patients, or women. ??Falsely low HbA1c results may be observed in patients with clinical conditions that shorten erythrocyte life span or decrease mean erythrocyte age such as the presence of unstable hemoglobin variants, elevated hemoglobin F level or other causes of hemolytic anemia. ??HbA1c may not accurately reflect glycemic control when clinical conditions that affect erythrocyte survival are present. ??Severe Iron deficiency anemia may yield falsely high results. ??Hemoglobin A1c assay should not be used to diagnose or monitor diabetes in patients with malignancy, recent blood transfusion, chronic kidney or liver disease. ?? This method may yield falsely low results when hemoglobin (HbF) exceeds 5% in the specimen. The Ruiz Alinity assay for the measurement of HbA1c is a National Glycohemoglobin Standardization Program (NGSP) certified method. Janice Park MD L AB - CHEMISTRY ORDERABLES [facility] [id number] [place] [address] * XR CHEST 1VW PORTABLE (08/03/2023 10:27 PM RETAIL AREA MANAGER) Anatomical Region Laterality Modality Chest Radiographic Tana ging 08/04/2023 7:37 AM RETAIL AREA MANAGER Impressions 08/04/2023 7:38 AM RETAIL AREA MANAGER IMPRESSION: No acute cardiopulmonary abnormalities. > Interpreting Provider: Jaylin Barger MD on 08/04/2023 7:38 AM Narrative 08/04/2023 7:38 AM RETAIL AREA MANAGER PROCEDURE: ??XR CHEST 1VW PORTABLE DATE/TIME OF EXAM: ??08/03/2023 10:28 PM CLINICAL INFORMATION: None relevant/not provided if blank. Indication: I21.3: ST elevation (STEMI) myocardial infarction of unspecified site (CMS-HCC) Additional History: COMPARISON: None. FINDINGS: The heart is upper limits of normal in size. The pulmonary vascularity is within normal limits. The lungs are underexpanded, but clear. No pleural effusion is seen. Procedure Note Jaylin Barger MD - 08/04/2023 PROCEDURE: XR CHEST 1VW PORTABLE DATE/TIME OF EXAM: 08/03/2023 10:28 PM CLINICAL INFORMATION: None relevant/not provided if blank. Indication: I21.3: ST elevation (STEMI) myocardial infarction of unspecified site (CMS-HCC) Additional History: COMPARISON: None. FINDINGS: The heart is upper limits of normal in size. The pulmonary vascularityis within normal limits. The lungs are underexpanded, but clear. No pleural effusion is seen. IMPRESSION: No acute cardiopulmonary abnormalities. > Interpreting Provider: Jaylin Barger MD on 08/04/2023 7:38 AM Katherine Garnica MD DIAGNOSTIC IMAGING O RDERABLES * TROPONIN-I HIGH SENSITIVE BASELINE + 1HR (08/03/2023 10:24 PM RETAIL AREA MANAGER) Pathologist [facility] Troponin I High Sensitive 13 <=35 ng/L 08/03/2023 11:10 PM RETAIL AREA MANAGER [facility] Blood BLOOD SPECIMEN / Unknown Venipuncture / Unknown 08/03/2023 10:24 PM RETAIL AREA MANAGER 08/03/2023 10:46 PM RETAIL AREA MANAGER Katherine Garnica MD LAB - CHEMISTRY [place] DEAN Performing Organization Address [facility] Co de Phone Number [facility] [address] [place] [address] * B-TYPE NATRIURETIC PEPTIDE (08/03/2023 10:24 PM RETAIL AREA MANAGER) Pathologist [facility] BNP 86 <=100 pg/mL 08/03/2023 11:09 PM RETAIL AREA MANAGER [facility] Blood BLOOD SPECIMEN / Unknown Venipuncture / Unknown 08/03/2023 10:24 PM RETAIL AREA MANAGER 08/03/2023 10:46 PM RETAIL AREA MANAGER Katherine Garnica MD LAB - CHEMISTRY ORDJuany DEAN Performing Organization Address [facility] Co de Phone Number [facility] [id number] [place] [address] * (ABNORMAL) COMPREHENSIVE METABOLIC PANEL (08/03/2023 10:24 PM RETAIL AREA MANAGER) Pathologist [facility] Glucose 221(H) 70 - 105 mg/dL 08/03/2023 11:09 PM RETAIL AREA MANAGER [facility] Sodium 140 136 - 145 mmol/L 08/03/2023 11:09 PM RETAIL AREA MANAGER [facility] Potassium 4.3 3.5 - 5.1 mmol/L 08/03/2023 11:09 PM RETAIL AREA MANAGER [facility] Chloride 107 98 - 107 mmol/L 08/03/2023 11:09 PM [facility] CO2 21(L) 22 - 29 mmol/L 08/03/2023 11:09 PM [facility] Calcium 8.8 8.4 - 10.4 mg/dL 08/03/2023 11:09 PM [facility] Anion Gap 12 6 - 16 mmol/L 08/03/2023 11:09 PM [facility] BUN 11 7 - 26 mg/dL 08/03/2023 11:09 PM [facility] Creatinine 1.21 0.72 - 1.25 mg/dL 08/03/2023 11:09 PM [facility] Alkaline Phosphatase 68 40 - 150 U/L 08/03/2023 11:09 PM [facility] ALT 27 0 - 55 U/L 08/03/2023 11:09 PM [facility] AST 23 5 - 34 U/L 08/03/2023 11:09 PM [facility] Protein Total 7.6 6.4 - 8.3 gm/dL 08/03/2023 11:09 PM [facility] Albumin 3.5 3.4 - 5.0 gm/dL 08/03/2023 11:09 PM [facility] Bilirubin Total 0.3 0.2 - 1.2 mg/dL 08/03/2023 11:09 PM [facility] eGFR by CKD-EPI 71(L) >=90 mL/min/1.7 3 m2 08/03/2023 11:09 PM [facility] Blood BLOOD SPECIMEN / Unknown Venipuncture / Unknown 08/03/2023 10:24 PM RETAIL AREA MANAGER 08/03/2023 10:46 PM RETAIL AREA MANAGER Narrative [facility] - 08/03/2023 11:09 PM [facility] Specimen Lipemic Katherine Garnica MD LAB - CHEMISTRY [place] DEAN [facility] [address] [place] [address] * EKG 12-LEAD (08/03/2023 10:11 PM [facility]) Ventricular Rate 59 BPM [facility] Atrial Rate 59 BPM [facility] P-R Interval 190 ms [facility] QRS Duration ms 136 ms [facility] Q-T Interval ms 432 ms [facility] QTC Calculation (Bezet) 427 ms [facility] Calculated P [place] 52 degrees [facility] Calculated R [place] -46 degrees [facility] Calculated T [place] 20 degrees [facility] Interpretation EKG Critical Test Result: STEMI Sinus bradycardia Right bundle branch block Left anterior fascicular block Bifascicular block Minimal voltage criteria for LVH, may be normal variant ( R in aVL ) Inferior infarct , age undetermined Anteroseptal infarct Nonspecific ST abnormality Abnormal ECG No previous ECGs available Confirmed by LAWSON FAIR, WILLIAM ([id number]) on 08/04/2023 11:19:08 AM [facility] MUSE 08/03/2023 10:1 1 PM RETAIL AREA MANAGER 08/04/2023 11:19 AM RETAIL AREA MANAGER Katherine Garnica MD ECG ORDERABLES [facility] Care Teams Behavioral Health Specialist Relationship Specialty Start Date End Date Medhat Benton MD [address] [id number] PCP - General Family Medicine 08/03/23
--- OUTSIDE RECORDS SUMMARY | 2024-08-12 02:04 | XMS_ITS | Clinical Summary ---
Author Organization [facility] Address [address] 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 Active glyBURIDE (DIABETA) 5 mg tablet Take 5 mg by mouth daily with breakfast 2 tabs in am 1 tab pm . Active Social History Tobacco Use Types Packs/Day Years Used Date Smoking Tobacco: Never Smokeless Tobacco: Current Alcohol Use Standard Drinks/Week Comments Yes 0 (1 standard drink = 0.6 oz pur e alcohol) Occasional Sex and Gender Information Value Date Recorded Sex Assigned at Not on file Legal Sex Male 9:14 AM CDT Gender Identity Not on file Sexual Orientation Not on file Last Filed Vital Signs Vital Sign Reading Time Taken Comments Blood Pressure 141/86 05/03/2016 1:47 AM CDT Pulse - - Temperature 36.6 ??C (97.9 ??F) 05/02/2016 9:29 PM CD T Respiratory Rate 18 05/03/2016 1:47 AM CDT Oxygen Saturation 99% 05/03/2016 1:47 AM CDT Inhaled Oxygen Concentration - - Weight 108 kg (238 lb) 05/02/2016 9:29 PM CDT Height 172.7 cm (5' 8 ) 05/02/2016 9:29 PM CDT Body Mass Index 36.19 05/02/2016 9:29 PM CDT Plan of Treatment Health Maintenance Due Date Last Done Comments DTAP/TDAP/TD VACCINES (1 - Tdap) 1986 HEPATITIS B VACCINES (1 of 3 - 19+ 3-dose series) 1986 COLORECTAL SCREENING 2012 Colorectal Cancer Screening 2012 FIT-DNA Q 3 years 2012 FIT/FOBT Q 1 year 2012 Flex Sig/CT Colonography Q 5 years 2012 ZOSTER VACCINE (1 of 2) 2017 INFLUENZA VACCINE (#1) 2024 PNEUMOCOCCAL VACCINE 0-64 YEARS Aged Out No longer eligible based on patient's age to complete this topic
--- OUTSIDE RECORDS SUMMARY | 2024-08-12 02:04 | XMS_ITS | Referral Summary ---
Author Organization [facility] Building A Address [address] [place] [address] Care Team Providers Care Medical Lab Tech Instructor Name Role Phone Medhat Benton MD Primary Care Provider [phone] Constantine Bardales MD Unavailable [phone] Encounters Date Type Department Care Team Description 06/14/2024 11:30 AM SPARES SCHEDULER - 06/14/2024 1:00 PM SPARES SCHEDULER Surgery [facility] Cardiac Catheterization Lab [address] [place] [id number] Constantine Bardales MD LEFT HEART CATHETERIZATION WITH CORONARY ANGIOGRAPHY AND WITH OR WITHOUT LEFT VENTRICULOGRAM [id number] 06/12/2024 11:14 AM SPARES SCHEDULER - 06/14/2024 6:55 PM SPARES SCHEDULER Hospital Encounter [address] [address] Joanna Byrne MD Rudomiotov, Olga, MD Burton, Jeffrey Ryan, DO Chest pain, unspecified type (Primary Dx); NSTEMI (non-ST elevated myocardial infarction) (CMS/HCC) (HCC) Discharge Disposition: Discharge to home or self care 06/13/2024 Orders Only [facility] Cardiac Catheterization Lab [address] [place] [id number] Constantine Bardales MD NSTEMI (non-ST elevated myocardial infarction) (CMS/HCC) (HCC) (Primary Dx) from Last 3 Months Allergies No known active allergies Medications fenofibrate nanocrystallized (TRICOR) 145 mg tablet Take 1 tablet (145 mg total) by mouth daily 06/30/20 20 Active nitroglycerin (NITROSTAT) 0.[address] 1 tablet (0.4 mg total) under the tongue every 5 (five) minutes as needed 12/24/19 Active valACYclovir (VALTREX) 1 gram tablet Take 1 tablet (1,000 mg total) by mouth 2 (two) times a day as needed 12/29/19 20 Active aspirin 81 mg enteric coated tablet Take 1 tablet (81 mg total) by mouth daily Active ticagrelor (BRILINTA) 90 mg tablet Take 1 tablet (90 mg total) by mouth 2 (two) times a day 60 tablet 10 01/30/20 Active atorvastatin (LIPITOR) 80 mg tablet Take 1 tablet (80 mg total) by mouth nightly 04/04/20 22 Active pen needle, diabetic (Pen Needle) 32 gauge x 5/32 needle USE ONE PEN NEEDLE TO INJECT INSULIN DAILY e11.65 200 each 3 04/09/20 22 Active FreeStyle Miguel 3 Sensor device 1 Device continuously Change every 14 days. E11.65 6 each 3 10/15/19 23 Active metoprolol XL (TOPROL-XL) 50 mg extended release tablet Take 1 tablet (50 mg total) by mouth daily 09/15/19 24 Active lisinopriL (PRINIVIL,ZESTRIL) 10 mg tablet Take 1 tablet (10 mg total) by mouth daily 09/15/19 24 Active insulin glargine (LANTUS) 100 unit/mL (3 mL) pen for injection Inject 50 Units under the skin daily E11.65 45 mL 4 11/19/19 24 Active empagliflozin (JARDIANCE) 25 mg tabletIndications:ty pe 2 diabetes mellitus Take 1 tablet (25 mg total) by mouth daily e11.65 90 tablet 3 01/11/20 24 025 Active metFORMIN XR (GLUCOPHAGE XR) 750 mg 24 hr tabletIndications:Ty pe 2 diabetes mellitus with hyperglycemia, with long-term current use of insulin (HCC) TAKE 1 TABLET(750 MG) BY MOUTH TWICE DAILY WITH MEALS 180 tablet 3 02/22/20 24 Active Ozempic 2 mg/dose (8 mg/3 mL) pen injector injection Inject 2 mg under the skin once a week sundays04/01/20 24 Active Active Problems Problem Noted Date Diagnosed Date NSTEMI (non-ST elevated myocardial infarction) ( [facility]) 06/12/2024 Class 1 obesity due to exces s calories with serious comorbidity and body mass index (BMI) of 33.0 to 33.9 in adult 11/10/2023 Assessment & Plan (11/10/2023 10:40 AM CDT): This is a chronic condition which continues 4 lbs. Weight gain since last office visit Encouraged healthy eating which includes a low carb diet. Avoiding processed foods, sweets and fried foods. Encouraged 30 minutes of walking at least 5 days per week Presence of drug-eluting meadrdo nt in left circumflex coronary artery 03/11/2022 Coronary artery disease invo lving [place] coronary artery of [place] heart 02/06/2022 Overview (02/06/2022): Added automatically from request for surgery [id number] Hypertension associated with type 2 diabetes herman litus 12/04/2021 Assessment & Plan (11/10/2023 10:38 AM CDT): This is a chronic condition which is at goal. Goal is less than 140/90 Personally reviewed labs. Continue lisinopril metoprolol Encouraged to monitor weight and B/P at home Encouraged to take medications as prescribed. Assessment & Plan (07/07/2023 4:55 PM SPARES SCHEDULER): This is a chronic condition which is at goal of less than 140/90 Personally reviewed labs. Continue lisinopril metoprolol Encouraged to monitor weight and B/P at home Encouraged to take medications as prescribed. Assessment & Plan (01/22/2023 2:38 PM CDT): This is a chronic condition which is at goal of less than 140/90 Personally reviewed labs. Continue lisinopril Encouraged to monitor weight and B/P at home Encouraged to take medications as prescribed. Assessment & Plan (10/14/2022 3:18 PM CDT): This is a chronic condition which is at goal of less than 140/90 Personally reviewed labs. Continue on lisinopril, Encouraged to void caffeine and excessive alcohol consumption as this will elevate B/P Encouraged to monitor weight and B/P at home Explained correct way to take blood pressure. - After 5 minutes of sitting calmly with arm supported. Encouraged to take medications as prescribed. Assessment & Plan (04/09/2022 3:11 PM CDT): This is a chronic condition which is at goal Personally reviewed labs. Continue on lisinopril, Encouraged to void caffeine and excessive alcohol consumption as this will elevate B/P Encouraged to monitor weight and B/P at home Explained correct way to take blood pressure. - After 5 minutes of sitting calmly with arm supported. Encouraged to take medications as prescribed. Ischemic cardiomyopathy 12/04/2021 Type 2 diabetes mellitus with hyperglycemia ([facility] /HCC) 11/22/2021 Assessment & Plan (11/10/2023 10:38 AM CDT): This is a chronic condition which is worsening, not at goal . Goal is less than 7%. Personally reviewed most recent A1c - Lab Results Component Value Date HGBA1C 7.7 11/10/2023 Personally reviewed POC blood sugar- at goal of 80-180 Lab Results Component Value Date POCGLU 111 11/10/2023 Medication- Continue Metformin 750mg twice a day, ozempic 0.5mg weekly- started by cardiology, jardiance 25mg daily. Soliqua 50 units daily. Monitor blood sugar to times a day. Encouraged annual eye exam. Monofilament foot exam completed. Protective senses intact Personally reviewed CMP eGFR- 68 Kidney function-abnormal Urine microalbumin/creatinine ratio - abnormal. Goal is <30 Continue lisinopril, metoprolol Assessment & Plan (07/07/2023 4:54 PM SPARES SCHEDULER): This is a chronic condition which is improving but not at goal of less than 7%. Personally reviewed most recent A1c - Lab Results Component Value Date HGBA1C 7.4 07/07/2023 Personally reviewed POC blood sugar- at goal 80-180 Lab Results Component Value Date POCGLU 154 07/07/2023 Medication- Continue Metformin 750mg twice a day, Soliqua 50 units daily, jardiance 25mg daily. Monitor blood sugar 2x daily Encouraged annual eye exam. Monofilament foot exam completed. protective senses intact Feet dry and cracked on the dorsal surface. Encouraged him to follow up with [facility] his primary care doctor had provided him with a referral Personally reviewed CMP eGFR- 68 Kidney function-abnormal Urine microalbumin/creatinine ratio - not at goal <30 treated with lisinopril, metoprolol B/P today- at goal of <140/90. continue lisinopril, metoprolol Personally reviewed lipid panel. at Goal of less than 70. Continue atorvastatin, fenofibrate Assessment & Plan (01/22/2023 2:37 PM CDT): This is a chronic condition which is improving but not at goal of less than 7%. Personally reviewed most recent A1c - Lab Results Component Value Date HGBA1C 8.4 01/22/2023 Personally reviewed POC blood sugar- at goal 80-180 Lab Results Component Value Date POCGLU 116 01/22/2023 Medication- Continue Metformin 750mg twice a day, Soliqua 50 units daily, jardiance 25mg daily. Monitor blood sugar daily. Continuously with freestyle miguel 3 sensor. Encouraged annual eye exam. Monofilament foot exam completed. protective senses intact loss of protective senses. Treated with Gabapentin/Lyrica Personally reviewed CMP eGFR- 63 Kidney function- abnormal Urine microalbumin/creatinine ratio - goal <30 treated with lisinopril B/P today- at goal of <140/90. continue lisinopril Personally reviewed lipid panel. at Goal of less than 70. Continue atorvastatin and fenofibrate. Assessment & Plan (10/14/2022 3:17 PM CDT): This is a chronic condition which is out of control, worsening not at goal of less than 7% due to lack of diet and medication compliance Personally reviewed most recent A1c - Lab Results Component Value Date HGBA1C 10.3 10/14/2022 Personally reviewed POC blood sugar- not at goal 80-180 Lab Results Component Value Date POCGLU 392 10/14/2022 Medication- increase Soliqua 50 units daily, continue metformin 750 mg twice daily and Jardiance 25 mg daily Monitor blood sugar continuously with freestyle Miguel 3 sensor. Office sample provided. Encouraged to call blood sugars in 5 day. Encouraged annual eye exam. Monofilament foot exam completed. protective senses intact Urine microalbumin/creatinine ratio - 80. not at goal <30. treated with lisinopril Personally reviewed CMP GFR- 63 Kidney function- normal B/P today- at goal of less than <140/90 continue on lisinopril, metoprolol Personally reviewed lipid panel. at Goal of less than 70. Continue on atorvastatin and fenofibrate History of DC and stents placed-10 Assessment & Plan (04/09/2022 3:11 PM CDT): This is a chronic condition which is improving, but not at goal. goal less than 7% Personally reviewed most recent A1c - Lab Results Component Value Date HGBA1C 8.4 04/09/2022 Personally reviewed POC blood sugar- 79. not at goal 80-180 Medication- Continue Soliqua 40 units daily, metformin 750 mg twice daily, Jardiance 25 mg daily Monitor blood sugar continuously with freestyle Miguel 2 sensor. Encouraged annual eye exam. Monofilament foot exam completed. protective senses intact Urine microalbumin/creatinine ratio - 80. not at goal <30. treated with lisinopril Personally reviewed CMP GFR- 63 Kidney function- normal B/P today- at goal. Goal is <140/90 continue on lisinopril, metoprolol Personally reviewed lipid panel. at Goal of less than 70. Continue on atorvastatin and fenofibrate History of DC and stents placed-10 Assessment & Plan (11/23/2021 8:03 AM CDT): This is a chronic condition which not at goal.?A1c today- 10.1% -not at??goal less than 7%. Medication-??Continue??Metformin??750mg twice a day,Trulicity 1.5mg weekly- 2 samples provided, increased Jardiance 25 mg daily.??increase Soliqua 40 units daily -a more economical option. Encouraged annual eye exam.?Dilated eye exam is needed.?? Monofilament foot exam completed, protective senses intact. ??Referral to podiatry for dry peeling feet-Dr. Montgomery at [facility]. Urine microalbumin/creatinine ratio -??150, abnormal. not at goal <30. On lisinopril and metoprolol. Personally reviewed labs -Bun-14, creat- 0.96, GFR- 90. Normal kidney function B/P today-??106/68??, currently on lisinopril, metoprolol. ??At goal blood pressure is <140/90 and as close to 120/80 as possible. Personally reviewed Lipid panel- Chol-117, trig-174, HDL-25, LDL-57. on??atorvastatin 80 mg daily and fenofibrate.?at Goal of less than 70 History of macrovascular disease - DC with stent placement. ?? Hyperlipidemia associated with type 2 diabetes georgie marlow 10/31/2020 Assessment & Plan (11/10/2023 10:39 AM CDT): This is a chronic condition which is not at goal . Goal is LDL less than 70 Continue atorvastatin, fenofibrate Encouraged to eat healthy, include fresh fruits and vegetables daily and avoid eating fried foods more than once per week. Encouraged to take medications as prescribed. Assessment & Plan (07/07/2023 4:55 PM SPARES SCHEDULER): This is a chronic condition which is not at goal of LDL less than 70 Continue atorvastatin fenofibrate Encouraged to eat healthy, include fresh fruits and vegetables daily and avoid eating fried foods more than once per week. Encouraged to take medications as prescribed. Assessment & Plan (01/22/2023 2:38 PM CDT): This is a chronic condition which is at goal of LDL less than 70 Continue atorvastatin and fenofibrate Encouraged to eat healthy, include fresh fruits and vegetables daily and avoid eating fried foods more than once per week. Encouraged to take medications as prescribed. Assessment & Plan (10/14/2022 3:18 PM CDT): This is a chronic condition which is goal of LDL goal is less than 70. Triglycerides 240. Personally reviewed lipid panel. At goal on current therapy, atorvastatin 80 mg daily and fenofibrate.?? Encouraged to eat healthy, include fresh fruits and vegetables daily and avoid eating fried foods more than once per week. Please take medications as prescribed. ?? Assessment & Plan (04/09/2022 3:12 PM CDT): This is a chronic condition which is goal. LDL goal is less than 70. Triglycerides 240. Personally reviewed lipid panel. At goal on current therapy, atorvastatin 80 mg daily and fenofibrate.?? Encouraged to eat healthy, include fresh fruits and vegetables daily and avoid eating fried foods more than once per week. Please take medications as prescribed. ?? Assessment & Plan (11/23/2021 8:03 AM CDT): This is a chronic condition which is stable, at goal. LDL goal is less than 70. Personally reviewed lipid panel. Chol-117, trig-174, HDL-25, LDL-57 At goal on current therapy, atorvastatin 80 mg daily and fenofibrate.?? Encouraged to eat healthy, include fresh fruits and vegetables daily and avoid eating fried foods more than once per week. Please take medications as prescribed. ?? Assessment & Plan (08/19/2021 5:05 PM SPARES SCHEDULER): This is a chronic condition which is stable, at goal. LDL goal is less than 70. Personally reviewed lipid panel. Chol-117, trig-174, HDL-25, LDL-57 At goal on current therapy, atorvastatin 80 mg daily and fenofibrate.?? Encouraged to eat healthy, include fresh fruits and vegetables daily and avoid eating fried foods more than once per week. Please take medications as prescribed. ?? Assessment & Plan (05/08/2021 3:22 PM CDT): This is a chronic condition which is stable, at goal. LDL goal is less than 70. Personally reviewed lipid panel. Chol-117, trig-174, HDL-25, LDL-57 At goal on current therapy, atorvastatin 80 mg daily and fenofibrate.?? Encouraged to eat healthy, include fresh fruits and vegetables daily and avoid eating fried foods more than once per week. Please take medications as prescribed. ?? Assessment & Plan (02/01/2021 2:15 PM CDT): This is a chronic condition which is stable, at goal. LDL goal is less than 70. Personally reviewed lipid panel. (2.21 from care every where) Chol-129, trig- 197, HDL-26, LDL-64, At goal on current therapy, atorvastatin 80 mg daily and fenofibrate.?? Encouraged to eat healthy, include fresh fruits and vegetables daily and avoid eating fried foods more than once per week. Please take medications as prescribed. ?? Assessment & Plan (10/31/2020 5:41 PM CDT): This is a chronic condition which is stable, at goal. LDL goal is less than 70. Personally reviewed lipid panel. (2.21 from care every where) Chol-129, trig- 197, HDL-26, LDL-64, At goal on current therapy, atorvastatin 80 mg daily and fenofibrate.?? Encouraged to eat healthy, include fresh fruits and vegetables daily and avoid eating fried foods more than once per week. Please take medications as prescribed. Old DC (myocardial infarction) Resolved Problems Problem Noted Date Diagnosed Date Resolved Date Abnormal stress test 01/24/2022 022 Overview (01/24/2022): Added automatically from request for surgery [id number] Hyperglycemia 12/24/2021 04/09/2022 Type 2 diabetes mellitus wit hout complication, without long-term current use of insulin ([facility]) 08/01/2020 04/09/2022 Assessment & Plan (08/19/2021 5:04 PM SPARES SCHEDULER): This is a chronic condition which not at goal.?A1c today- 8% -not at??goal less than 7%. Medication- ??Continue??Metformin??750mg twice a day,Trulicity 1.5mg weekly- 2 samples provided, Jardiance 10 mg daily.??Lantus 30 units daily. Discussed switching to Soliqua 30 units daily am as it might be a more economical option. Encouraged annual eye exam.?Dilated eye exam is needed.?? Monofilament foot exam completed, protective senses intact. ??Referral to podiatry for dry peeling feet-Dr. Montgomery at [facility]. Urine microalbumin/creatinine ratio -??150, abnormal. not at goal <30. On lisinopril and metoprolol. Will reassess as blood sugar drops further. Personally reviewed labs -Bun-14, creat- 0.96, GFR- 90. Normal kidney function B/P today-??110/70??, currently on lisinopril, metoprolol. ??At goal blood pressure is <140/90 and as close to 120/80 as possible. Personally reviewed Lipid panel- Chol-117, trig-174, HDL-25, LDL-57. on??atorvastatin 80 mg daily and fenofibrate.?at Goal of less than 70 History of macrovascular disease - DC with stent placement. ?? Assessment & Plan (05/08/2021 4:39 PM CDT): This is a chronic condition which is improving hyperglycemia, not at goal.?A1c today- 7.5% Improving but not at??goal less than 7%. Medication-??Continue??Metformin??750mg twice a day,Trulicity 1.5mg weekly, Jardiance 10 mg daily.??Lantus 30 units daily Encouraged annual eye exam.?Dilated eye exam is needed.?? Monofilament foot exam completed, protective senses intact. ??Referral to podiatry for dry peeling feet-Dr. Montgomery at [facility]. Urine microalbumin/creatinine ratio -??150, abnormal. not at goal <30. On amlodipine and metoprolol. Will reassess as blood sugar drops further. Personally reviewed labs -Bun-14, creat- 0.96, GFR- 90. Normal kidney function B/P today-??106/62??, currently on norvasc and metoprolol. ??At goal blood pressure is <140/90 and as close to 120/80 as possible. Personally reviewed Lipid panel- Chol-117, trig-174, HDL-25, LDL-57. on??atorvastatin 80 mg daily and fenofibrate.?at Goal of less than 70 No history of macrovascular disease - CVA, DC ?? Assessment & Plan (02/01/2021 3:22 PM CDT): This is a chronic condition which is improving hyperglycemia, not at goal.?A1c today-7.2, down from 10.0. Improving but not at??goal less than 7%. Medication-??Continue??Metformin??750mg twice a day,Trulicity 1.5mg weekly, add Jardiance 10 mg daily.??Lantus 30 units daily Encouraged annual eye exam.?Dilated eye exam is needed.?? Monofilament foot exam completed, protective senses intact. ??Referral to podiatry for dry peeling feet. ?? Urine microalbumin/creatinine ratio -??150, abnormal. not at goal <30. On amlodipine and metoprolol. Will reassess as blood sugar drops further. Personally reviewed labs (2.27.21) Bun-13, creat- 0.92, GFR- 95. Normal kidney function B/P today-??118/76??, currently on norvasc and metoprolol. ??At goal blood pressure is <140/90 and as close to 120/80 as possible. Personally reviewed Lipid panel (2.21 from care every where) Chol-129, trig-197, HDL-26, LDL-64, currently on??atorvastatin 80 mg daily and fenofibrate.?at Goal of less than 70 No history of macrovascular disease - CVA, DC ?? Assessment & Plan (10/31/2020 5:42 PM CDT): This is a chronic condition which is improving hyperglycemia, not at goal.? A1c today-8.2, down from 10.0. Improving but not at??goal less than 7%. 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 Medication-??Continue??Metformin??750mg twice a day, has not taking Trulicity 1.5mg weekly for 3 weeks. Instructed to take Trulicity 1.5mg weekly as prescribed. continue Jardiance 25 mg daily. Freestyle Miguel sensor used for continuous glucose monitoring. Call blood sugar results in 2-3 weeks to evaluate need for insulin adjustment. Encouraged annual eye exam.?Dilated eye exam is needed.?? Monofilament foot exam completed, protective senses intact. ??Referral to podiatry for dry peeling feet. ?? Urine microalbumin/creatinine ratio -??150, abnormal. not at goal <30. On amlodipine and metoprolol. Will reassess as blood sugar drops further. Personally reviewed labs (09.15.21) Bun-13, creat- 0.92, GFR- 95. Normal kidney function B/P today-??124/74??, currently on norvasc and metoprolol. ??At goal blood pressure is <140/90 and as close to 120/80 as possible. Personally reviewed Lipid panel (2.21 from care every where) Chol-129, trig-197, HDL-26, LDL-64, currently on??atorvastatin 80 mg daily and fenofibrate.?at Goal of less than 70 No history of macrovascular disease - CVA, DC ?? Freestyle Miguel continuous glucose monitor applied from 10/18/2020 to 10/31/2020 This device was placed for monitor and treatment of blood sugar. ?? Average blood sugar-186 Variability- 27% ( goal < 36%) ?? Data Analysis Very High >250 mg/dl- 12 % High 181-250 mg/dl 37% Target 70-180 mg/dl 51 % Low 54-69 mg/dl 0 % Very Low <50 mg/dl 0% Interpretation of data- increased time in target range. Persistent hyperglycemia. Basal insulin adjusted. Restart Trulicity. ? Assessment & Plan (09/12/2020 4:50 PM SPARES SCHEDULER): This is a chronic condition which is uncontrolled with hyperglycemia, not at goal. A1c today-10 not at goal less than 7%. 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 Medication- Continue Metformin 750mg twice a day, continue Trulicity 1.5mg weekly. add Jardiance 25 mg daily. Sample Freestyle Miguel sensor applied. Instructed on it use. Monitor blood sugar 4x times a day. Encouraged annual eye exam. Dilated eye exam is needed. Monofilament foot exam completed, protective senses intact. Referral to podiatry for dry peeling feet. Urine microalbumin/creatinine ratio - needed and ordered. goal <30 CMP ordered to assess kidney function B/P today- 120/72 , currently on norvasc and metoprolol. At goal blood pressure is <140/90 and as close to 120/80 as possible. Lipid panel ordered, currently on atorvastatin 80 mg daily. Goal of less than 70 No history of macrovascular disease - CVA, DC Freestyle Miguel continuous glucose monitor applied from 08/02/2020 to 08/15/2020 This device was placed for monitor and treatment of blood sugar. Average blood sugar- 240 Variability- 26.9 % ( goal < 36%) Data Analysis Very High >250 mg/dl- 40 % High 181-250 mg/dl 43 % Target 70-180 mg/dl 17 % Low 54-69 mg/dl 0 % Very Low <50 mg/dl 0% Interpretation of data- Severe hyperglycemia. Rarely in target. 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 Assessment & Plan (08/01/2020 4:48 PM SPARES SCHEDULER): This is a chronic condition which is uncontrolled with hyperglycemia, not at goal. Personally reviewed chart provided by Dr. Benton. Labs not available, not in care everywhere. Personally reviewed A1c today-10 not at goal less than 7%. 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 Medication- stop januvia and glyburide. Continue Metformin 750mg twice a day, Start Trulicity 0.75mg weekly for 4 weeks and then increase to Trulicity 1.5mg weekly. Take Toujeo 25 units daily for 4 weeks, (2 sample pens and 30 pen needles provided) until Trulicity can be increased to 1.5mg weekly. Sample Freestyle Miguel sensor applied. Instructed on it use. Monitor blood sugar 4x times a day. Encouraged annual eye exam. Dilated eye exam is needed. Monofilament foot exam completed, protective senses intact. Referral to podiatry for dry peeling feet. Urine microalbumin/creatinine ratio - needed and ordered. goal <30 CMP ordered to assess kidney function B/P today- 122/74 , currently on norvasc and metoprolol. At goal blood pressure is <140/90 and as close to 120/80 as possible. Lipid panel ordered, currently on atorvastatin 80 mg daily. Goal of less than 70 No history of macrovascular disease - CVA, DC. See dietitian as scheduled 08/29/20 Social History Tobacco Use Types Packs/Day Years Used Date Smoking Tobacco: Never Smokeless Tobacco: Current Chew Tobacco Cessation:Ready to Q uit: Not Asked; Counseling Given: Not Answered Alcohol Use Standard Drinks/Week Comments Never 0 (1 standard drink = 0.6 oz pur e alcohol) [facility] Utilities Answer Date Recorded In the past 12 months has [employer], [employer], oil, or water [employer] threatened to shut off services in your home? No 06/13/2024 Social Connection and Isolat ion Panel [NHANES] Answer Date Recorded In a typical week, how many times do you talk on the phone with family, friends, or neighbors? More than three times a week 06/13/2024 How often do you get togethe r with friends or relatives? Once a week 06/13/2024 How often do you attend [facility] or anglican services? More than 4 times per year 06/13/2024 Do you belong to any clubs o r organizations such as christian groups, unions, fraternal or athletic groups, or school groups? No 06/13/2024 How often do you attend meet ings of the clubs or organizations you belong to? Never 06/13/2024 Are you , , di vorced, , never , or living with a partner? 06/13/2024 AUDIT-C Answer Date Recorded Q1: How often do you have a drink containing alcohol? Never 06/13/2024 Q2: How many drinks containi ng alcohol do you have on a typical day when you are drinking? Patient does not drink Q3: How often do you have si x or more drinks on one occasion? Never 06/13/2024 Overall Financial Resource Strain (CARDIA) Answe r Date Recorded How hard is it for you to pa y for the very basics like food, housing, medical care, and heating? Not hard at all 06/13/2024 PHQ-2 Answer Date Recorded PHQ-2 Total Score 0 01/28/2022 Hunger Vital Sign Answer Date Recorded Within the past 12 months, y ou worried that your food would run out before you got the money to buy more. Never true 06/13/20 Within the past 12 months, t he food you bought just didn't last and you didn't have money to get more. Never true 06/13/2024 PRAPARE - Transportation Answer Date Re corded In the past 12 months, has l ack of transportation kept you from medical appointments or from getting medications? No 05/21 In the past 12 months, has l ack of transportation kept you from meetings, work, or from getting things needed for daily living? No 06/13/2024 Housing Stability Vital Sign Answer Rian e Recorded In the last 12 months, was t here a time when you were not able to pay the mortgage or rent on time? No 06/13/2024 In the past 12 months, how m any times have you moved where you were living? 0 06/13/2024 At any time in the past 12 m [facility], were you homeless or living in a halfway (including now)? No 06/13/2024 Personal Safety Answer Date Recorded Have you ever been in or are you currently in a harmful physical or emotional relationship or is someone making you feel afraid or unsafe? Denies 06/12/2024 Sex and Gender Information Value Date Recorded Sex Assigned at Not on file Legal Sex Male 11:12 AM SPARES SCHEDULER Gender Identity Not on file Sexual Orientation Not on file Last Filed Vital Signs Vital Sign Reading Time Taken Comments Blood Pressure 154/84 06/14/2024 3:40 PM SPARES SCHEDULER Pulse 64 06/14/2024 3:40 PM SPARES SCHEDULER Temperature 36.6 ??C (97.8 ??F) 06/14/2024 3:40 PM CS T Respiratory Rate 18 06/14/2024 3:40 PM SPARES SCHEDULER Oxygen Saturation 94% 06/14/2024 3:40 PM SPARES SCHEDULER Inhaled Oxygen Concentration - - Weight 93.4 kg (205 lb 14.4 oz) 06/12/2024 4:32 PM SPARES SCHEDULER Height 172.7 cm (5' 8 ) 06/12/2024 11:1 2 AM SPARES SCHEDULER Body Mass Index 31.31 06/12/2024 11:12 AM SPARES SCHEDULER Plan of Treatment Not on file Medical Devices Implanted Type Area Remediation Consultant Device Identifier Shelf Expiration Date Model / Serial / Lot Weekend-a-gogo Angio-Seal Vip 6fr Closere Device [id number] - [id number] Implanted:Qty: 1 on 03/04/2022 by Heidi Lowry MD at [facility] Other - see comments [employer] Hipolito 12/17/2022 [id number] / / [id number] [employer] X [id number] Resolute Van 2.75mm 2.1-2.7fr 22mm 140cm Rapid Exchange - [id number] Implanted:Qty: 1 on 03/07/2021 by Heidi Lowry MD at [facility] Stent Medtronic Inc [id number] / / [employer] Hipolito Synergy 2.25mm 16mm 144cm Radiopaque 1 Access Port Inflation [id number] - [id number] Implanted:Qty: 1 on 03/04/2022 by Heidi Lowry MD at [facility] Stent [employer] Hipolito 10/11/2022 [id number] / / [id number] Med[employer] X [id number] Resolute Van 2.5mm 2.1-2.7fr 15mm 140cm Rapid Exchange - [id number] Implanted:Qty: 1 on 03/07/2021 by Heidi Lowry MD at [facility] Medtronic Inc [id number] / / Daig Hipolito [id number] Device Closure Angio-Seal Vip Bondek-Plus Polyglyd L70 Cm Od6 Fr Odsec.035 In Vascular - [id number] Implanted:Qty: 1 on 03/07/2021 by Heidi Lowry MD at [facility] [employer] Hipolito [id number] / / [employer] Hipolito Synergy 2.5mm 12mm 144cm Radiopaque 1 Access Port Inflation Lumen [id number] - [id number] Implanted:Qty: 1 on 01/28/2022 by Heidi Lowry MD at [facility] [employer] Hipolito 07/24/2022 [id number] / / [id number] [employer] Hipolito Synergy 2.5mm 32mm 144cm Radiopaque 1 Access Port Inflation Lumen [id number] - [id number] Implanted:Qty: 1 on 01/28/2022 by Heidi Lowry MD at [facility] [employer] 06/18/2022 [id number] / / [id number] Glasses Direct Hipolito Synergy 2.5mm 20mm 144cm Radiopaque 1 Access Port Inflation Lumen [id number] - [id number] Implanted:Qty: 1 on 01/28/2022 by Heidi Lowry MD at [facility] [employer] 05/08/2022 [id number] / / [id number] Angio-Seal Vip 6fr Closere Device [id number] - [id number] Implanted:Qty: 1 on 01/28/2022 [facility] [id number] / / [id number] [facility] Angio-Seal Vip 6fr Closere Device [id number] - [id number] Implanted:Qty: 1 on 06/14/2024 by Constantine Bardales MD at [facility] [employer] [facility] [id number] / / Procedures Procedure Name Priority Date/Time Associated Diagnosis Comments POCT GLUCOSE DEVICE Routine 06/14/2024 4 :57 PM SPARES SCHEDULER LEFT HEART CATHETERIZATION WITH CORONARY ANGIOGRAPHY AND WITH AND WITHOUT LEFT VENTRICULOGRAM Routine 06/14/2024 12:24 PM SPARES SCHEDULER NSTEMI (non-ST elevated myocardial infarction) (CMS/HCC) (HCC) POCT GLUCOSE DEVICE Routine 06/14/2024 1 1:08 AM SPARES SCHEDULER APTT Timed 06/14/2024 10:36 AM SPARES SCHEDULER EGFR Routine 06/14/2024 3:16 AM SPARES SCHEDULER APTT Timed 06/14/2024 3:16 AM SPARES SCHEDULER BASIC METABOLIC PANEL Routine 06/14/2024 3:16 AM SPARES SCHEDULER POCT GLUCOSE DEVICE Routine 06/13/2024 9 :02 PM SPARES SCHEDULER POCT GLUCOSE DEVICE Routine 06/13/2024 5 :12 PM SPARES SCHEDULER POCT GLUCOSE DEVICE Routine 06/13/2024 1 1:40 AM SPARES SCHEDULER APTT Timed 06/13/2024 10:23 AM SPARES SCHEDULER POCT GLUCOSE DEVICE Routine 06/13/2024 7 :46 AM SPARES SCHEDULER APTT Timed 06/13/2024 4:38 AM SPARES SCHEDULER POCT GLUCOSE DEVICE Routine 06/13/2024 2 :48 AM SPARES SCHEDULER HEMOGLOBIN A1C Add-On 06/12/2024 9:29 PM SPARES SCHEDULER EGFR Routine 06/12/2024 9:29 PM SPARES SCHEDULER DIFFERENTIAL AUTO Routine 06/12/2024 9:2 9 PM SPARES SCHEDULER BASIC METABOLIC PANEL Routine 06/12/2024 9:29 PM SPARES SCHEDULER CBC WITH AUTO DIFFERENTIAL Routine 06/12/2024 9:29 PM SPARES SCHEDULER APTT Timed 06/12/2024 9:29 PM SPARES SCHEDULER POCT GLUCOSE DEVICE Routine 06/12/2024 8 :24 PM SPARES SCHEDULER TRANSTHORACIC ECHO (TTE) COMPLETE W DOPPLER/CF WO CONTRAST ED 06/12/2024 8:00 PM SPARES SCHEDULER POCT GLUCOSE DEVICE Routine 06/12/2024 4 :15 PM SPARES SCHEDULER CBC WITHOUT DIFFERENTIAL STAT 06/12/2024 3:14 PM SPARES SCHEDULER PROTIME-INR STAT 06/12/2024 3:14 PM SPARES SCHEDULER TROPONIN T HIGH-SENSITIVITY 4-HR Timed 06/12/2024 3:14 PM SPARES SCHEDULER LIPID PANEL Timed 06/12/2024 1:27 PM SPARES SCHEDULER TROPONIN T HIGH-SENSITIVITY 2-HOUR Timed 06/12/2024 1:27 PM SPARES SCHEDULER XR CHEST 1 VIEW ED 06/12/2024 12:13 PM SPARES SCHEDULER POCT GLUCOSE DEVICE Routine 06/12/2024 1 1:55 AM SPARES SCHEDULER DIFFERENTIAL AUTO STAT 06/12/2024 11: 41 AM SPARES SCHEDULER CBC WITH AUTO DIFFERENTIAL STAT 06/12/2024 11:41 AM SPARES SCHEDULER EGFR STAT 06/12/2024 11:39 AM SPARES SCHEDULER PRO B-TYPE NATRIURETIC PEPTIDE STAT 06/12/2024 11:39 AM SPARES SCHEDULER TROPONIN T HIGH-SENSITIVITY SERIES (BASELINE, 2HR, 4HR, 6HR) STAT 06/12/2024 11:39 AM SPARES SCHEDULER COMPREHENSIVE METABOLIC PANEL STAT 06/12/2024 11:39 AM SPARES SCHEDULER ECG 12-LEAD STAT 06/12/2024 11:13 AM SPARES SCHEDULER ALBUMIN CREATININE RATIO, URINE Routine 01/22/2023 2:40 PM CDT Type 2 diabetes mellitus with hyperglycemia, with long-term current use of insulin ([facility] ([facility]) from Last 3 Months or Most Recently Relevant to Health Maintenance Results * POCT glucose (06/14/2024 4:57 PM SPARES SCHEDULER) Glucose, POC 80 70 - 199 mg/dL Blood 06/14/2024 4:57 PM SPARES SCHEDULER 06/14/2024 4:57 PM SPARES SCHEDULER us Trevon Sanchez DO LAB POCT ORDERABLES - DEV ICE Final Result ADDIS WARREN [address] [place] [address] * LEFT HEART CATHETERIZATION WITH CORONARY ANGIOGRAPHY AND WITH AND WITHOUT LEFT VENTRICULOGRAM (06/14/2024 12:24 PM SPARES SCHEDULER) Anatomical Region Laterality Modality X-Ray Angiograph y Narrative 06/14/2024 1:06 PM SPARES SCHEDULER Procedure RCFA micropuncture access with placement 6F sheath, 6F angioseal at the end of the procedure, LHC/Cors/LV/Conscious sedation Versed 2 mg iv, Fentanyl 25 mcg iv with continuous monitoring by trained personnel for 30 minutes. Consent Obtained Indication NSTEMI 5F JL4, 5FJR4, 5F pigtail catheter used for the procedure with catheter exchanges over J wire Well tolerated. ??No complications Results Cors LM nl, LAD proximal to mid LAD stented segment widely patent, D1 small 80% followed by 100% occlusion, maybe GILBERT, LCX trifurcates, OM1 90degree takeoff with 80% prox stenosis, OM2 20 %, widely patent stented segment, RCA mid and distal stented segment widely patent, 60% PDA stenosis LV gram Normal LVSF LVEF 65%, LVEDP 10 mm Hg, No , No MR Conclusions NSTEMI ASCAD with small D1 80% then 100% occlusion possible GILBERT, no other significant change in anatomy c/w cath , medical management recommended. Normal LVSF LVEF 65%, no signficant change after nstemi DM HTN HLD Recommendations Medical management for nstemi Continue bASA 81 mg po daily, continue Brilinta 90 mg po bid Continue BB, Acei,jardiance Bedrest 2 hours after angioseal deployment Possible discharge later tonight or in am tomorrow Follow-up with me in the office in 2 weeks. Constantine Bardales MD [facility] 06/14/2024 1:06 PM Constantine Bardales MD CV CARDIAC CATH PROCEDURES Final Result * POCT glucose (06/14/2024 11:08 AM SPARES SCHEDULER) Glucose, POC 107 70 - 199 mg/dL Blood 06/14/2024 11:0 8 AM SPARES SCHEDULER 06/14/2024 11:08 AM SPARES SCHEDULER Trevon Sanchez DO LAB POCT ORDERABLES - DEV ICE Final Result Performing Organization Address [facility] de Phone Number ADDIS WARREN [id number] [address] [facility] [place] [address] * (ABNORMAL) aPTT (06/14/2024 10:36 AM SPARES SCHEDULER) aPTT 127(H) 28 - 38 sec Comment: Interpretive Data Heparin therapeutic range: 66.0 - 100.0 seconds. Range based on correlation with therapeutic heparin activity range of 0.3 - 0.7 Units/mL. Current interpretive data was last revised on 2023. Blood 06/14/2024 10:3 6 AM SPARES SCHEDULER 06/14/2024 10:52 AM SPARES SCHEDULER Trevon Sanchez DO LAB BLOOD ORDERABLES Laida l Result Performing Organization Address [facility] de Phone Number ADDIS WARREN [address] [address] [facility] [place] [address] * eGFR (06/14/2024 3:16 AM SPARES SCHEDULER) eGFR 62 >=60 mL/min/1. 73 m2 Comment: Interpretive Data Reference Interval Normal ?>/= 90 mL/min/1.73m2 Mildly decreased* ? 60 - 89 mL/min/1.73m2 Mildly to moderately decreased ?45 - 59 mL/min/1.73m2 Moderately to severely decreased ??30 - 44 mL/min/1.73m2 Severely decreased ?15 - 29 mL/min/1.73m2 Kidney Failure ?< 15 ??mL/min/1.73m2 *Relative to young adult level Estimated glomerular filtration rate is determined by the 2020 CKD-EPI equation recommended by the National Kidney Foundation (A Unifying Approach to GFR Estimation: Recommendations of the NKF-ASK Task Force on Reassessing the Inclusion of Race in Diagnosing Kidney Disease, JASN 2020). The CKD-EPI equation should not be used for patients with unstable renal function and has not been validated in children and those over 70. Current interpretive data was last reviewed 2021. Blood 06/14/2024 3:16 AM SPARES SCHEDULER 06/14/2024 3:34 AM SPARES SCHEDULER Sarahi Walters MD LAB BLOOD ORDERABLES Final Re sult Performing Organization Address [facility]/ZIP Co de Phone Number ADDIS [id number] [address] [place] [address] * (ABNORMAL) aPTT (06/14/2024 3:16 AM SPARES SCHEDULER) aPTT 52(H) 28 - 38 sec Comment: Interpretive Data Heparin therapeutic range: 66.0 - 100.0 seconds. Range based on correlation with therapeutic heparin activity range of 0.3 - 0.7 Units/mL. Current interpretive data was last revised on 2023. Blood 06/14/2024 3:16 AM SPARES SCHEDULER 06/14/2024 3:32 AM SPARES SCHEDULER Trevon Sanchez DO LAB BLOOD ORDERABLES Alida l Result Performing Organization Address City/[facility]/[place] [address] [address] [facility] of [facility] [place] [address] * (ABNORMAL) Basic metabolic panel (06/14/2024 3:16 AM SPARES SCHEDULER) Sodium 140 135 - 145 mmol/L Potassium, pl 4.0 3.3 - 4.9 mmol/L [facility] Chloride 105 97 - 110 mmol/L [facility] CH CO2 24 22 - 32 mmol/L [facility] CH Anion gap 11 2 - 15 mmol/L [facility] CH BUN 26(H) 6 - 25 mg/dL [facility] Creatinine 1.35(H) 0.80 - 1.30 mg/dL [facility] Glucose 140 70 - 199 mg/dL [facility] Comment: Interpretive Data Fasting glucose >/= 126 mg/dl is diagnostic for diabetes. ?? Fasting is defined as no caloric intake for at least 8 hours. Fasting glucose between 100 mg/dl to 125 mg/dl is diagnostic of prediabetes. In a patient with classic symptoms of hyperglycemia or hyperglycemic crisis, a random glucose >/= 200 mg/dl is diagnostic for diabetes. In the absence of unequivocal hyperglycemia, results should be confirmed by repeat testing. The classification and Diagnosis of Diabetes Diabetes Care 2021; 46: S19-S40. Current interpretive data was last revised 2022. Calcium 9.5 8.5 - 10.3 mg/dL [facility] Blood 06/14/2024 3:16 AM SPARES SCHEDULER 06/14/2024 3:32 AM SPARES SCHEDULER Sarahi Walters MD LAB BLOOD ORDERABLES Final Re sult Performing Organization Address [facility]/ZIP Co de [facility] [address] [address] [place], [place] [id number] * POCT glucose (06/13/2024 9:02 PM SPARES SCHEDULER) Glucose, POC 115 70 - 199 mg/dL Blood 06/13/2024 9:02 PM SPARES SCHEDULER 06/13/2024 9:02 PM SPARES SCHEDULER Sarahi Walters MD LAB POCT ORDERABLES - DEVICE Final Result Performing Organization Address City/[facility]/ZIP Co de Phone Number [facility] [address] [place] [address] * POCT glucose (06/13/2024 5:12 PM SPARES SCHEDULER) Glucose, POC 107 70 - 199 mg/dL Blood 06/13/2024 5:12 PM SPARES SCHEDULER 06/13/2024 5:12 PM SPARES SCHEDULER Sarahi Walters MD LAB POCT ORDERABLES - DEVICE Final Result Performing Organization Address [facility] Co de Phone Number ADDIS WARREN [address] [address] [facility] [place] [address] * POCT glucose (06/13/2024 11:40 AM SPARES SCHEDULER) Glucose, POC 99 70 - 199 mg/dL Blood 06/13/2024 11:4 0 AM SPARES SCHEDULER 06/13/2024 11:40 AM SPARES SCHEDULER Sarahi Walters MD LAB POCT ORDERABLES - DEVICE Final Result Performing Organization Address [facility] de Phone Number ADDIS WARREN [address] [address] [facility] [place] [address] * (ABNORMAL) aPTT (06/13/2024 10:23 AM SPARES SCHEDULER) aPTT 74(H) 28 - 38 sec Comment: Interpretive Data Heparin therapeutic range: 66.0 - 100.0 seconds. Range based on correlation with therapeutic heparin activity range of 0.3 - 0.7 Units/mL. Current interpretive data was last revised on 2023. Blood 06/13/2024 10:2 3 AM SPARES SCHEDULER 06/13/2024 10:39 AM SPARES SCHEDULER Trevon Sanchez DO LAB BLOOD ORDERABLES Alida l Result Performing Organization Address [facility] Co de Phone Number ADDIS WARREN [address] [address] [facility] [place] [address] * POCT glucose (06/13/2024 7:46 AM SPARES SCHEDULER) Glucose, POC 118 70 - 199 mg/dL Blood 06/13/2024 7:46 AM SPARES SCHEDULER 06/13/2024 7:46 AM SPARES SCHEDULER Sarahi Walters MD LAB POCT ORDERABLES - DEVICE Final Result Performing Organization Address [facility] de Phone Number ADDIS WARREN [phone] [address] [facility] [place] [address] * (ABNORMAL) aPTT (06/13/2024 4:38 AM SPARES SCHEDULER) aPTT 66(H) 28 - 38 sec Comment: Interpretive Data Heparin therapeutic range: 66.0 - 100.0 seconds. Range based on correlation with therapeutic heparin activity range of 0.3 - 0.7 Units/mL. Current interpretive data was last revised on 2023. Blood 06/13/2024 4:38 AM SPARES SCHEDULER 06/13/2024 5:42 AM SPARES SCHEDULER Trevon Sanchez DO LAB BLOOD ORDERABLES Alida l Result Performing Organization Address [facility] de Phone Number ADDIS WARREN [address] [address] [facility] [place], [place] [id number] * POCT glucose (06/13/2024 2:48 AM SPARES SCHEDULER) Pathologist [facility] Glucose, POC 165 70 - 199 mg/dL Blood 06/13/2024 2:48 AM SPARES SCHEDULER 06/13/2024 2:48 AM SPARES SCHEDULER Sarahi Walters MD LAB POCT ORDERABLES - DEVICE Final Result Performing Organization Address [facility] de Phone Number ADDIS WARREN [address] [address] [facility] [place] [address] * eGFR (06/12/2024 9:29 PM SPARES SCHEDULER) Pathologist [facility] eGFR 62 >=60 mL/min/1. 73 m2 Comment: Interpretive Data Reference Interval Normal ?>/= 90 mL/min/1.73m2 Mildly decreased* ? 60 - 89 mL/min/1.73m2 Mildly to moderately decreased ?45 - 59 mL/min/1.73m2 Moderately to severely decreased ??30 - 44 mL/min/1.73m2 Severely decreased ?15 - 29 mL/min/1.73m2 Kidney Failure ?< 15 ??mL/min/1.73m2 *Relative to young adult level Estimated glomerular filtration rate is determined by the 2020 CKD-EPI equation recommended by the National Kidney Foundation (A Unifying Approach to GFR Estimation: Recommendations of the NKF-ASK Task Force on Reassessing the Inclusion of Race in Diagnosing Kidney Disease, JASN 2020). The CKD-EPI equation should not be used for patients with unstable renal function and has not been validated in children and those over 70. Current interpretive data was last reviewed 2021. Blood 06/12/2024 9:29 PM SPARES SCHEDULER 06/12/2024 9:45 PM SPARES SCHEDULER us Amira Martin NP LAB BLOOD ORDERABLES Final R esult [facility] [id number] [address] [place] [address] * Differential, auto (06/12/2024 9:29 PM SPARES SCHEDULER) Neutrophil abs 5.5 1.5 - 6.5 K/cumm Imm gran abs 0.0 0.0 - 0.1 K/cumm [facility] Lymphocyte abs 1.9 0.8 - 3.3 K/cumm [facility] Monocyte abs 0.7 0.2 - 0.8 K/cumm [facility] Eosinophil abs 0.1 0.0 - 0.5 K/cumm [facility] Basophil abs 0.0 0.0 - 0.1 K/cumm [facility] Neutrophil pct 66.7 % [facility] Comment: Interpretive Data Percent cell count reference ranges are not reported, since discordance with absolute values may lead to misinterpretation of CBC data. Current Interpretive Data was last revised on 2017. Imm gran pct 0.2 % [facility] Comment: Interpretive Data Percent cell count reference ranges are not reported, since discordance with absolute values may lead to misinterpretation of CBC data. Current Interpretive Data was last revised on 2017. Lymphocyte pct 22.7 % [facility] Comment: Interpretive Data Percent cell count reference ranges are not reported, since discordance with absolute values may lead to misinterpretation of CBC data. Current Interpretive Data was last revised on 2017. Monocyte pct 8.2 % [facility] Comment: Interpretive Data Percent cell count reference ranges are not reported, since discordance with absolute values may lead to misinterpretation of CBC data. Current Interpretive Data was last revised on 2017. Eosinophil pct 1.7 % [facility] Comment: Interpretive Data Percent cell count reference ranges are not reported, since discordance with absolute values may lead to misinterpretation of CBC data. Current Interpretive Data was last revised on 2017. Basophil pct 0.5 % [facility] Comment: Interpretive Data Percent cell count reference ranges are not reported, since discordance with absolute values may lead to misinterpretation of CBC data. Current Interpretive Data was last revised on 2017. Blood 06/12/2024 9:29 PM SPARES SCHEDULER 06/12/2024 9:45 PM SPARES SCHEDULER Amira Martin NP LAB BLOOD ORDERABLES Final R esult [facility] [address] [address] [place] [address] * (ABNORMAL) CBC with auto differential (06/12/2024 9:29 PM SPARES SCHEDULER) WBC 8.2 3.8 - 9.9 K/cumm Hgb 14.2 13.0 - 17.5 g/dL [facility] Hct 45.1 38.9 - 50.3 % [facility] Plt 274 150 - 400 K/cumm [facility] MPV 11.1 9.1 - 12.3 fL [facility] RBC 4.96 4.30 - 5.80 M/cumm [facility] MCV 90.9 81.3 - 96.4 fL [facility] MCH 28.6 27.1 - 33.3 pg [facility] MCHC 31.5(L) 32.3 - 35.7 g/dL [facility] RDW CV 12.6 11.1 - 14.9 % [facility] RDW SD 41.6 35.7 - 48.1 fL [facility] NRBC abs 0.00 0.00 - 0.01 K/cumm [facility] Blood 06/12/2024 9:29 PM SPARES SCHEDULER 06/12/2024 9:45 PM SPARES SCHEDULER Amira Martin ABORIGINAL EDUCATION WORKER COORDINATOR LAB BLOOD ORDERABLES Final R esult Performing Organization Address [facility] Co de Phone Number [facility] [address] [place] [address] * (ABNORMAL) aPTT (06/12/2024 9:29 PM SPARES SCHEDULER) aPTT 53(H) 28 - 38 sec Comment: Interpretive Data Heparin therapeutic range: 66.0 - 100.0 seconds. Range based on correlation with therapeutic heparin activity range of 0.3 - 0.7 Units/mL. Current interpretive data was last revised on 2023. Blood 06/12/2024 9:29 PM SPARES SCHEDULER 06/12/2024 9:45 PM SPARES SCHEDULER Sarahi Walters MD LAB BLOOD ORDERABLES Final Re kikat Performing Organization Address [facility] Co de Phone Number [facility] [address] [address] [place], [place] [id number] * (ABNORMAL) Hemoglobin A1c (06/12/2024 9:29 PM SPARES SCHEDULER) Hgb A1C 6.5(H) 4.0 - 5.6 % Estimated Average Glucose 140 mg/dL [facility] Comment: The ADA recommends reporting an estimated Average Glucose (eAG) with all Hemoglobin A1c results using the equation derived from a study of 507 normal and diabetic adults. ??Minority populations were underrepresented and children were not included. ?? (Diabetes Care 31:4480-4324, 2008). ??The eAG is not equivalent to a fasting glucose. Blood 06/12/2024 9:29 PM SPARES SCHEDULER 06/13/2024 9:43 AM SPARES SCHEDULER Sarahi Walters MD LAB BLOOD ORDERABLES Final Re sult [facility] [id number] [address] Department [place] [address] * (ABNORMAL) Basic metabolic panel (06/12/2024 9:29 PM SPARES SCHEDULER) Sodium 142 135 - 145 mmol/L Potassium, pl 4.5 3.3 - 4.9 mmol/L [facility] Chloride 108 97 - 110 mmol/L [facility] CO2 23 22 - 32 mmol/L [facility] Anion gap 11 2 - 15 mmol/L [facility] BUN 30(H) 6 - 25 mg/dL [facility] Creatinine 1.34(H) 0.80 - 1.30 mg/dL [facility] Glucose 105 70 - 199 mg/dL [facility] Comment: Interpretive Data Fasting glucose >/= 126 mg/dl is diagnostic for diabetes. ?? Fasting is defined as no caloric intake for at least 8 hours. Fasting glucose between 100 mg/dl to 125 mg/dl is diagnostic of prediabetes. In a patient with classic symptoms of hyperglycemia or hyperglycemic crisis, a random glucose >/= 200 mg/dl is diagnostic for diabetes. In the absence of unequivocal hyperglycemia, results should be confirmed by repeat testing. The classification and Diagnosis of Diabetes Diabetes Care 2021; 46: S19-S40. Current interpretive data was last revised 2022. Calcium 9.7 8.5 - 10.3 mg/dL CERNER Blood 06/12/2024 9:29 PM SPARES SCHEDULER 06/12/2024 9:45 PM SPARES SCHEDULER Amira Martin NP LAB BLOOD ORDERABLES Final R esult Performing Organization Address City/[facility]/ZIP Co de Phone Number [facility] [address] [address] Department [place] [address] * POCT glucose (06/12/2024 8:24 PM SPARES SCHEDULER) Glucose, POC 106 70 - 199 mg/dL Blood 06/12/2024 8:24 PM SPARES SCHEDULER 06/12/2024 8:24 PM SPARES SCHEDULER us Sarahi Walters MD LAB POCT ORDERABLES - DEVICE Final Result Performing Organization Address City/State/ZIP Co pr Phone Number [facility] [id number] [facility] Department [place] [address] * TRANSTHORACIC ECHO (TTE) COMPLETE W DOPPLER/CF WO CONTRAST (06/12/2024 8:00 PM SPARES SCHEDULER) Anatomical Region Laterality Modality Ultrasound 06/12/2024 7:17 PM SPARES SCHEDULER Narrative 06/13/2024 1:16 [place] [address] Echocardiogram Report Patient Name: JOSE AGUILAR R : 1965 Study Date: 06/12/2024 7:17:59 PM Gender: M [facility]: [place] Location: [id number] Ref Provider: JOANNA BYRNE Height(Cm): 173 BSA: 2.11 Weight(Kg): 93 Heart Rate: 62 BP: 133 / 71 Quality: Good Order Provider: JOANNA BYRNE PROCEDURES: Echocardiographic Report: Transthoracic echocardiogram with complete 2D, M-Mode, and color Doppler examination. INDICATIONS: NSTEMI. Measurements: 2D/M Mode ? Doppler Measurement ?Value ?Normal Range ? Measurement ?Value ?Normal Range EF Teich 2D ?61.7 ? [ 52.0 - 72.0 ] percent ?KARRI Vmax ? 2.49 ? cm2 EF Mod 4C ?59.0 ? percent ?AV Mean PG ? 4 ?mmHg LVIDd 2D ? 4.95 ? [ 4.20 - 5.80 ] cm ? AV Peak Alon ?1.24 ? [ 1.00 - 1.70 ] m/s LVIDs 2D ? 3.30 ? [ 2.50 - 4.00 ] cm ? AV VTI ? 28.93 ?cm LVPWd 2D ? 1.08 ? [ 0.60 - 1.00 ] cm ? LVOT Diam ?2.00 ? cm IVSd 2D ?1.48 ? [ 0.60 - 1.00 ] cm ? LVOT Peak Alon ?0.98 ? [ 0.70 - 1.10 ] m/s LA Dimension 2D ?5.28 ? [ 3.00 - 4.00 ] cm ? LVOT VTI ? 21.05 ?cm LA Dimension MM ?4.83 ? [ 3.00 - 4.00 ] cm ? SI LVOT ?31.9 ? [ >= 35.0 ] ml/m2 AoR Diam 2D ?3.43 ? [ 3.10 - 3.70 ] cm ? MV E Peak Alon ?0.69 ? [ 0.60 - 1.30 ] m/s AoR Diam MM ?3.41 ? [ 3.10 - 3.70 ] cm ? MV A Peak Alon ?0.82 ? [ 1.00 - 1.20 ] m/s LA Volume Index ?33.53 ?[ 16.00 - 34.00 ] cc/m2 ?MV Mean PG ? 1 ?mmHg ACS MM ? 2.34 ? [ 1.50 - 2.60 ] cm ? MV PHT ? 54 ? [ 20 - 100 ] msec ___ ?___ ?___ ?MVA PHT ?4.05 ? cm2 ___ ?___ ?___ ?MV Decel Time ?187 ?[ 104 - 258 ] msec ___ ?___ ?___ ?PV Peak Alon ?0.88 ? [ 0.40 - 0.80 ] m/s ___ ?___ ?___ ?TR Peak Alon ?2.36 ? [ 1.00 - 2.80 ] m/s ___ ?___ ?___ ?TR Peak PG ? 22 ? mmHg ___ ?___ ?___ ?E` ? 0.07 ? m/s E/E` ? 6.97 Measurement ?Value ?Normal Range ? Measurement ?Value ?Normal Range 2D/M Mode ? Doppler - FINDINGS: Atrial Septum: Normal atrial septum. Left Ventricle: Normal left ventricular size. Normal left ventricular systolic function with no focal wall motion abnormalities. Mild concentric left ventricular hypertrophy. Impaired diastolic relaxation Grade I. Ejection fraction is visually estimated at 63 %. Left Atrium: The left atrium is normal in size. Right Ventricle: Normal right ventricular size. Normal right ventricular systolic function. Right Atrium: The right atrium is normal in size. Aortic Valve: Normal structure of the aortic valve. Mitral Valve: Normal structure of the mitral valve. Pulmonic Valve: Normal structure of the pulmonic valve. Tricuspid Valve: Normal right ventricular systolic pressure. Estimated peak RVSP is 35 mmHg. Mild tricuspid regurgitation. Pericardium: Normal pericardium with no significant pericardial effusion. Aorta: Normal aortic root. IVC: Normal size and normal respiratory collapse consistent with normal right atrial pressure (<5 mmHg). Pulmonary Artery: Normal pulmonary artery size. CONCLUSIONS: Normal left ventricular size. Normal left ventricular systolic function with no focal wall motion abnormalities. Mild concentric left ventricular hypertrophy. Impaired diastolic relaxation Grade I. Ejection fraction is visually estimated at 63 %. Normal right ventricular systolic pressure. Estimated peak RVSP is 35 mmHg. Mild tricuspid regurgitation. Electronically Signed By: Gene Fernandes MD 2024-06-13 01:16:12 SPARES SCHEDULER Procedure Note Gene Fernandes MD - 06/13/2024 [place] [address] Echocardiogram Report Patient Name: JOSE AGUILAR R : 1965 Study Date: 06/12/2024 7:17:59 PM Gender: M [place]: [place] Location: [place] [address] Ref Provider: JOANNA BYRNE Height(Cm): 173 BSA: 2.11 Weight(Kg): 93 Heart Rate: 62 BP: 133 / 71 Quality: Good Order Provider: JOANNA BYRNE PROCEDURES: Echocardiographic Report: Transthoracic echocardiogram with complete 2D, M-Mode, and color Dopplerexamination. INDICATIONS: NSTEMI. Measurements: 2D/M ModeDoppler Measurement Value Normal Range MeasurementValue Normal Range EF Teich 2D 61.7 [ 52.0 - 72.0 ] percent KARRI Vmax2.49 cm2 EF Mod 4C 59.0 percent AV Mean PG 4mmHg LVIDd 2D 4.95 [ 4.20 - 5.80 ] cm AV Peak Vel1.24 [ 1.00 - 1.70 ] m/s LVIDs 2D 3.30 [ 2.50 - 4.00 ] cm AV VTI28.93 cm LVPWd 2D 1.08 [ 0.60 - 1.00 ] cm LVOT Diam2.00 cm IVSd 2D 1.48 [ 0.60 - 1.00 ] cm LVOT Peak Vel0.98 [ 0.70 - 1.10 ] m/s LA Dimension 2D 5.28 [ 3.00 - 4.00 ] cm LVOT VTI21.05 cm LA Dimension MM 4.83 [ 3.00 - 4.00 ] cm SI LVOT31.9 [ >= 35.0 ] ml/m2 AoR Diam 2D 3.43 [ 3.10 - 3.70 ] cm MV E Peak Vel0.69 [ 0.60 - 1.30 ] m/s AoR Diam MM 3.41 [ 3.10 - 3.70 ] cm MV A Peak Vel0.82 [ 1.00 - 1.20 ] m/s LA Volume Index 33.53 [ 16.00 - 34.00 ] cc/m2 MV Mean PG 1mmHg ACS MM 2.34 [ 1.50 - 2.60 ] cm MV PHT 54[ 20 - 100 ] msec ___ ___ ___ MVA PHT4.05 cm2 ___ ___ ___ MV Decel Cpuj605 [ 104 - 258 ] msec ___ ___ ___ PV Peak Vel0.88 [ 0.40 - 0.80 ] m/s ___ ___ ___ TR Peak Vel2.36 [ 1.00 - 2.80 ] m/s ___ ___ ___ TR Peak PG 22mmHg ___ ___ ___ E`0.07 m/s E/E` 6.97 Measurement Value Normal Range MeasurementValue Normal Range 2D/M ModeDoppler - FINDINGS: Atrial Septum: Normal atrial septum. Left Ventricle: Normal left ventricular size. Normal left ventricular systolic functionwith no focal wall motion abnormalities. Mild concentric left ventricular hypertrophy.Impaired diastolic relaxation Grade I. Ejection fraction is visually estimated at63 %. Left Atrium: The left atrium is normal in size. Right Ventricle: Normal right ventricular size. Normal right ventricular systolicfunction. Right Atrium: The right atrium is normal in size. Aortic Valve: Normal structure of the aortic valve. Mitral Valve: Normal structure of the mitral valve. Pulmonic Valve: Normal structure of the pulmonic valve. Tricuspid Valve: Normal right ventricular systolic pressure. Estimated peak RVSP is 35mmHg. Mild tricuspid regurgitation. Pericardium: Normal pericardium with no significant pericardial effusion. Aorta: Normal aortic root. IVC: Normal size and normal respiratory collapse consistent with normal rightatrial pressure (<5 mmHg). Pulmonary Artery: Normal pulmonary artery size. CONCLUSIONS: Normal left ventricular size. Normal left ventricular systolic functionwith no focal wall motion abnormalities. Mild concentric left ventricular hypertrophy.Impaired diastolic relaxation Grade I. Ejection fraction is visually estimated at63 %. Normal right ventricular systolic pressure. Estimated peak RVSP is 35mmHg. Mild tricuspid regurgitation. Electronically Signed By: Gene Fernandes MD 2024-06-13 01:16:12 SPARES SCHEDULER Joanna Byrne MD CV ECHO PROCEDURES Alida l Result * POCT glucose (06/12/2024 4:15 PM SPARES SCHEDULER) Glucose, POC 194 70 - 199 mg/dL Blood 06/12/2024 4:15 PM SPARES SCHEDULER 06/12/2024 4:15 PM SPARES SCHEDULER Sarahi Walters MD LAB POCT ORDERABLES - DEVICE Final Result Performing Organization Address [facility]/ZIP Co de Phone Number [facility] [phone] [address] Department [place] [address] * (ABNORMAL) Troponin T high-sensitivity 4-hour (06/12/2024 3:14 PM SPARES SCHEDULER) Trop T hs 62(H) <=22 ng/L Comment: Interpretive Data For further hscTnT resources including the diagnostic algorithm and an aid in interpretation, copy and paste this link: https://nrl.testcatalog.org/show/hsTrop Current Interpretive Data last revised 2020. Trop T hs delta 30(C) ng/L [facility] Comment:Critical Result call ed to and read back by Persistent abnormal result, DATE: 2024-06-12 15:46:01 BY: Gillian Rush Trop T hs interp Significa nt(C) [facility] Comment:Critical Result call ed to and read back by Persistent abnormal result, DATE: 2024-06-12 15:46:01 BY: Gillian Rush Blood 06/12/2024 3:14 PM SPARES SCHEDULER 06/12/2024 3:14 PM SPARES SCHEDULER Joanna Byrne MD LAB BLOOD ORDERABLES Fi nal Result [facility] [address] [address] Department [place] [address] * Protime-INR (06/12/2024 3:14 PM SPARES SCHEDULER) [facility] PT 11.6 9.7 - 13.0 sec INR 1.07 0.90 - 1.20 [facility] Comment: Interpretive data Oral anticoagulant therapeutic ranges: Venous thromboembolism prophylaxis or treatment: 2.0-3.0 CARDIOLOGY Standard range: 2.0-3.0 High-intensity range: 2.5-3.5 Refer to indication-specific guidelines for appropriate target ranges for prosthetic heart valve replacement. Current interpretive data was last revised on 2019. Blood 06/12/2024 3:14 PM SPARES SCHEDULER 06/12/2024 3:14 PM SPARES SCHEDULER Narrative [facility] - 06/12/2024 3:34 PM SPARES SCHEDULER Baseline prior to heparin initiation Jaonna Byrne MD LAB BLOOD ORDERABLES Fi nal Result Performing Organization Address [facility] Co de Phone Number [facility] [address] [address] Department [place] [address] * (ABNORMAL) CBC without differential (06/12/2024 3:14 PM SPARES SCHEDULER) [facility] WBC 9.2 3.8 - 9.9 K/cumm Hgb 14.7 13.0 - 17.5 g/dL [facility] Hct 45.6 38.9 - 50.3 % [facility] Plt 286 150 - 400 K/cumm [facility] MPV 11.1 9.1 - 12.3 fL [facility] RBC 5.04 4.30 - 5.80 M/cumm [facility] MCV 90.5 81.3 - 96.4 fL [facility] MCH 29.2 27.1 - 33.3 pg [facility] MCHC 32.2(L) 32.3 - 35.7 g/dL [facility] RDW CV 12.6 11.1 - 14.9 % [facility] RDW SD 41.1 35.7 - 48.1 fL [facility] NRBC abs 0.00 0.00 - 0.01 K/cumm [facility] Blood 06/12/2024 3:14 PM SPARES SCHEDULER 06/12/2024 3:14 PM SPARES SCHEDULER Narrative [facility] - 06/12/2024 3:20 PM SPARES SCHEDULER Baseline prior to heparin initiation Joanna Byrne MD LAB BLOOD ORDERABLES Fi nal Result Performing Organization Address City/[facility]/ZIP Co de Phone Number [facility] [phone] [address] Department [place] [address] * (ABNORMAL) Troponin T high-sensitivity 2-hour (06/12/2024 1:27 PM SPARES SCHEDULER) Trop T hs 55(H) <=22 ng/L Comment: Interpretive Data For further hscTnT resources including the diagnostic algorithm and an aid in interpretation, copy and paste this link: https://nrl.testcatalog.org/show/hsTrop Current Interpretive Data last revised 2020. Trop T hs delta 23(C) ng/L [facility] Comment:Critical Result call ed to and read back by Keily Alvarenga, DATE: 2024-06-12 14:00:57 BY: Gillian Rush Trop T hs interp Significa nt(C) [facility] Comment:Critical Result call ed to and read back by Keily Alvarenga, DATE: 2024-06-12 14:00:57 BY: Gillian Rush Blood 06/12/2024 1:27 PM SPARES SCHEDULER 06/12/2024 1:27 PM SPARES SCHEDULER Joanna Byrne MD LAB BLOOD ORDERABLES Fi nal Result Performing Organization Address City/[facility]/ZIP Co de Phone Number [facility] [address] [address] Department [place] [address] * (ABNORMAL) Lipid panel (06/12/2024 1:27 PM SPARES SCHEDULER) Cholesterol 127 30 - 199 mg/dL Comment: Interpretive Data Ages < or = 19 years ??Acceptable: ? <170 mg/dL ??Borderline high: ??170-199 mg/dL ??High: ? >or= 200 mg/dL Ages > or = 20 years ??Desirable: ?<200 mg/dL ??Borderline high: ??200-239 mg/dL ??High: ? >or= 240 mg/dL Literature References: 1. Expert Panel on Integrated Guidelines for Cardiovascular Health and Risk Reduction in Children and Adolescents. Pediatrics 2011;128:S213 2. NCEP Expert Panel. Circulation 2004;110:227 Current Interpretive Data was last revised on 2018. Triglycerides 187(H) <=149 mg/dL [facility] Comment: Interpretive Data Ages < or = 9 years ??Acceptable: ? <75 mg/dL ??Borderline high: ??75-99 mg/dL ??High: ? >or= 100 mg/dL Ages 10 to 20 years ??Acceptable: ? <90 mg/dL ??Borderline high: ??90-129 mg/dL ??High: ? >or= 130 mg/dL Ages > or = 20 years ??Desirable: ?<150 mg/dL ??Borderline high: ??150-199 mg/dL ??High: ? 200-499 mg/dL ?Very high: ?? >or= 499 mg/dL Literature References: 1. Expert Panel on Integrated Guidelines for Cardiovascular Health and Risk Reduction in Children and Adolescents. Pediatrics 2011;128:S213 2. NCEP Expert Panel. Circulation 2004;110:227 Current Interpretive Data was last revised on 2018. HDL 27(L) >=40 mg/dL [facility] Comment: Interpretive Data Ages < or = 19 years ??Acceptable: ? >45 mg/dL ??Borderline low: ?? 40-45 mg/dL ??Low: ? <40 mg/dL Ages > or = 20 years ??Desirable: ?>or= 60 mg/dL ??Low: ? <40 mg/dL Literature References: 1. Expert Panel on Integrated Guidelines for Cardiovascular Health and Risk Reduction in Children and Adolescents. Pediatrics 2011;128:S213 2. NCEP Expert Panel. Circulation 2004;110:227 Current Interpretive Data was last revised on 2018. LDL, calculated 68 <=129 mg/dL [facility] Comment: Interpretive Data Ages < or = 19 years ??Acceptable: ? <110 mg/dL ??Borderline high: ??110-129 mg/dL ??High: ?>or= 130 mg/dL Ages > or = 20 years ??Optimal: ? <100 mg/dL ??Near optimal: ?100-129 mg/dL ??Borderline high: ?? 130-159 mg/dL ??High: ?>160 mg/dL Calculated using the Bradley LDL-C estimating equation. This equation was implemented on 2024. Prior to this date LDL-C was estimated using the Friedewald equation. Literature References: 1. Expert Panel on Integrated Guidelines for Cardiovascular Health and Risk Reduction in Children and Adolescents. Pediatrics 2011;128:S213 2. NCEP Expert Panel. Circulation 2004;110:227 3. Bradley Ocampo et al. NAILA Cardiol. 2019November 17;5(5):540-548. doi: 10.1001/[email or web address] Current Interpretive Data was last revised on 2024. Non-HDL Cholesterol 100 mg/dL [facility] Comment: Interpretive Data Ages < or = 19 years ??Acceptable: ?<120 mg/dL ??Borderline high: ??120-144 mg/dL ??High: ?>145 mg/dL Ages > or = 20 years ??When triglycerides are >200 mg/dL, Non-HDL cholesterol is a secondary target of ? therapy with treatment goals that are 30 mg/dL greater than the LDL cholesterol target. ? Literature References: 1. Expert Panel on Integrated Guidelines for Cardiovascular Health and Risk Reduction in Children and Adolescents. Pediatrics 2011;128:S213 2. NCEP Expert Panel. Circulation 2004;110:227 Current Interpretive Data was last revised on 2018. Chol/HDL ratio 5 [facility] Blood 06/12/2024 1:27 PM SPARES SCHEDULER 06/12/2024 1:27 PM SPARES SCHEDULER Narrative [facility] - 06/12/2024 2:22 PM SPARES SCHEDULER This lipid panel was automatically ordered due to a significant change in Troponin. The dietary status of the patient at the collection time should be correlated with the lipid results. us Joanna Byrne MD LAB BLOOD ORDERABLES Fi nal Result [facility] [id number] [address] Department [place] [address] * XR Chest 1 Vw Portable (if patient condition/safety warrant portable) (06/12/2024 12:13 PM SPARES SCHEDULER) Anatomical Region Laterality Modality Body, Chest N/A Computed Radiogr aphy 06/12/2024 12:5 9 PM SPARES SCHEDULER Impressions 06/12/2024 12:59 PM SPARES SCHEDULER 1. ??No evidence of active cardiopulmonary disease. 2. ??No change from previous. Electronically signed by: Steve Edwards M.D. Narrative 06/12/2024 12:59 PM SPARES SCHEDULER EXAM: ?? XR CHEST 1 VIEW DATE: ?? 06/12/2024 11:40 AM CLINICAL HISTORY: ?? Chest pain. COMPARISON: ?? 12/24/2021 FINDINGS: ?? Portable AP radiograph of the chest was obtained. ??The heart size is normal. ??The lungs are well-expanded and clear. ??No bony abnormality is seen. Procedure Note Steve Edwards MD - 06/12/2024 EXAM: XR CHEST 1 VIEW DATE: 06/12/2024 11:40 AM CLINICAL HISTORY: Chest pain. COMPARISON: 12/24/2021 FINDINGS: Portable AP radiograph of the chest was obtained. The heart size is normal. The lungs are well-expanded and clear. No bony abnormality is seen. IMPRESSION: 1. No evidence of active cardiopulmonary disease. 2. No change from previous. Electronically signed by: Steve Edwards M.D. Joanna Byrne MD IMG XR PROCEDURES Final Result * POCT glucose (06/12/2024 11:55 AM SPARES SCHEDULER) Glucose, POC 195 70 - 199 mg/dL Blood 06/12/2024 11:5 5 AM SPARES SCHEDULER 06/12/2024 11:55 AM SPARES SCHEDULER Joanna Byrne MD LAB POCT ORDERABLES - D EVICE Final Result [facility] [address] [address] [place] [address] * Differential, auto (06/12/2024 11:41 AM SPARES SCHEDULER) Pathologist [facility] Neutrophil abs 6.4 1.5 - 6.5 K/cumm Imm gran abs 0.0 0.0 - 0.1 K/cumm [facility] Lymphocyte abs 1.7 0.8 - 3.3 K/cumm [facility] Monocyte abs 0.7 0.2 - 0.8 K/cumm [facility] Eosinophil abs 0.1 0.0 - 0.5 K/cumm [facility] Basophil abs 0.0 0.0 - 0.1 K/cumm [facility] Neutrophil pct 71.8 % [facility] Comment: Interpretive Data Percent cell count reference ranges are not reported, since discordance with absolute values may lead to misinterpretation of CBC data. Current Interpretive Data was last revised on 2017. Imm gran pct 0.3 % [facility] Comment: Interpretive Data Percent cell count reference ranges are not reported, since discordance with absolute values may lead to misinterpretation of CBC data. Current Interpretive Data was last revised on 2017. Lymphocyte pct 18.6 % [facility] Comment: Interpretive Data Percent cell count reference ranges are not reported, since discordance with absolute values may lead to misinterpretation of CBC data. Current Interpretive Data was last revised on 2017. Monocyte pct 7.8 % [facility] Comment: Interpretive Data Percent cell count reference ranges are not reported, since discordance with absolute values may lead to misinterpretation of CBC data. Current Interpretive Data was last revised on 2017. Eosinophil pct 1.0 % [facility] Comment: Interpretive Data Percent cell count reference ranges are not reported, since discordance with absolute values may lead to misinterpretation of CBC data. Current Interpretive Data was last revised on 2017. Basophil pct 0.5 % [facility] Comment: Interpretive Data Percent cell count reference ranges are not reported, since discordance with absolute values may lead to misinterpretation of CBC data. Current Interpretive Data was last revised on 2017. Blood 06/12/2024 11:4 1 AM SPARES SCHEDULER 06/12/2024 11:41 AM SPARES SCHEDULER Joanna Byrne MD LAB BLOOD ORDERABLES [facility] Result [facility] [address] [address] Department [place] [address] * (ABNORMAL) CBC with auto differential (06/12/2024 11:41 AM SPARES SCHEDULER) WBC 8.9 3.8 - 9.9 K/cumm Hgb 14.9 13.0 - 17.5 g/dL [facility] Hct 46.5 38.9 - 50.3 % [facility] Plt 273 150 - 400 K/cumm [facility] MPV 11.1 9.1 - 12.3 fL [facility] RBC 5.14 4.30 - 5.80 M/cumm [facility] MCV 90.5 81.3 - 96.4 fL [facility] MCH 29.0 27.1 - 33.3 pg [facility] MCHC 32.0(L) 32.3 - 35.7 g/dL [facility] RDW CV 12.4 11.1 - 14.9 % [facility] RDW SD 40.6 35.7 - 48.1 fL [facility] NRBC abs 0.00 0.00 - 0.01 K/cumm [facility] Blood (Blood, Venous) 06/12/2024 11:41 AM SPARES SCHEDULER 06/12/2024 11:41 AM SPARES SCHEDULER Joanna Byrne MD LAB BLOOD ORDERABLES Fi nal Result Performing Organization Address [facility] de Phone Number [facility] [address] [address] [facility] [place] [address] * (ABNORMAL) Troponin T high-sensitivity series (baseline, 2hr, 4hr, 6hr) (06/12/2024 11:39 AM SPARES SCHEDULER) Trop T hs 32(H) <=22 ng/L Comment: Interpretive Data For further hscTnT resources including the diagnostic algorithm and an aid in interpretation, copy and paste this link: https://nrl.testcatalog.org/show/hsTrop Current Interpretive Data last revised 2020. Blood 06/12/2024 11:3 9 AM SPARES SCHEDULER 06/12/2024 11:39 AM SPARES SCHEDULER Joanna Byrne MD LAB BLOOD ORDERABLES Fi nal Result Performing Organization Address [facility] de Phone Number [facility] [address] [address] Department of [facility] [place] [address] * (ABNORMAL) eGFR (06/12/2024 11:39 AM SPARES SCHEDULER) eGFR 52(L) >=60 mL/min/1. 73 m2 Comment: Interpretive Data Reference Interval Normal ?>/= 90 mL/min/1.73m2 Mildly decreased* ? 60 - 89 mL/min/1.73m2 Mildly to moderately decreased ?45 - 59 mL/min/1.73m2 Moderately to severely decreased ??30 - 44 mL/min/1.73m2 Severely decreased ?15 - 29 mL/min/1.73m2 Kidney Failure ?< 15 ??mL/min/1.73m2 *Relative to young adult level Estimated glomerular filtration rate is determined by the 2020 CKD-EPI equation recommended by the National Kidney Foundation (A Unifying Approach to GFR Estimation: Recommendations of the NKF-ASK Task Force on Reassessing the Inclusion of Race in Diagnosing Kidney Disease, JASN 2020). The CKD-EPI equation should not be used for patients with unstable renal function and has not been validated in children and those over 70. Current interpretive data was last reviewed 2021. Blood 06/12/2024 11:3 9 AM SPARES SCHEDULER 06/12/2024 11:39 AM SPARES SCHEDULER us Joanna Byrne MD LAB BLOOD ORDERABLES Fi nal Result Performing Organization Address City/State/[facility] Co pr Phone Number [facility] [id number] [address] Department [place] [address] * Pro B-type natriuretic peptide (06/12/2024 11:39 AM SPARES SCHEDULER) NT-proBNP 84 <=300 pg/mL Comment: Interpretive Comments: A. Dyspnea in Acute Care Setting All Ages: ?< 300 pg/ml, acute heart failure unlikely. < 50 yrs: ?300 - 450 pg/ml, further investigation warranted. ? > 450 pg/ml, acute heart failure likely. 50 - 74 yrs: ? 300 - 900 pg/ml, further investigation warranted. ? > 900 pg/ml, acute heart failure likely . > or = 75 yrs: ? 450 - 1800 pg/ml, further investigation warranted. ? > 1800 pg/ml, acute heart failure likely. B. Non-acute Setting < 75 yrs ? < 125 pg/ml, rules out heart failure. ? > or = 125 pg/ml, further investigation warranted. > or = 75 yrs ?< 450 pg/ml, rules out heart failure. ? > or = 450 pg/ml, further investigation warranted. - Knowledge of each individual patient's NT-proBNP range may be more useful than using similar cut-points for every patient. Please note that marked elevations in NT-proBNP levels may be observed in state other than Left Ventricular Congestive Failure, including: acute coronary syndromes, right heart strain/failure (including pulmonary embolism and cor pulmonale), critical illness, renal failure, as well as advanced age. - References: 1. Jj CAMERON et.al. Eur Heart J. 2006:27:330-337. 2. Katherine RW, [place]. J. AM Mesha Cardiol: Cardiovasc Imag. 2009;2: 216- 225. Interpretive Data Last Revised Date: 2018. Blood 06/12/2024 11:3 9 AM SPARES SCHEDULER 06/12/2024 11:39 AM SPARES SCHEDULER us Joanna Byrne MD LAB BLOOD ORDERABLES Fi nal Result [facility] [address] [address] [place] [address] * (ABNORMAL) Comprehensive metabolic panel (06/12/2024 11:39 AM SPARES SCHEDULER) Sodium 139 135 - 145 mmol/L Potassium, pl 4.2 3.3 - 4.9 mmol/L [facility] Chloride 105 97 - 110 mmol/L [facility] CH CO2 22 22 - 32 mmol/L [facility] CH Anion gap 12 2 - 15 mmol/L [facility] CH BUN 32(H) 6 - 25 mg/dL [facility] CH Creatinine 1.56(H) 0.80 - 1.30 mg/dL [facility] Glucose 263(H) 70 - 199 mg/dL [facility] Comment: Interpretive Data Fasting glucose >/= 126 mg/dl is diagnostic for diabetes. ?? Fasting is defined as no caloric intake for at least 8 hours. Fasting glucose between 100 mg/dl to 125 mg/dl is diagnostic of prediabetes. In a patient with classic symptoms of hyperglycemia or hyperglycemic crisis, a random glucose >/= 200 mg/dl is diagnostic for diabetes. In the absence of unequivocal hyperglycemia, results should be confirmed by repeat testing. The classification and Diagnosis of Diabetes Diabetes Care 2021; 46: S19-S40. Current interpretive data was last revised 2022. Calcium 10.0 8.5 - 10.3 mg/dL [facility] Bilirubin, total 0.3 0.1 - 1.2 mg/dL [facility] CH Protein, pl 7.1 6.5 - 8.5 g/dL [facility] CH Albumin 4.2 3.5 - 5.0 g/dL [facility] CH Alk phos 58 40 - 130 Units/L [facility] CH ALT 24 7 - 55 Units/L [facility] CH AST 18 10 - 50 Units/L [facility] CH Blood 06/12/2024 11:3 9 AM SPARES SCHEDULER 06/12/2024 11:39 AM SPARES SCHEDULER Joanna Byrne MD LAB BLOOD ORDERABLES [facility] Result [facility] [id number] [place] [address] * ECG 12 lead (06/12/2024 11:13 AM SPARES SCHEDULER) 06/12/2024 11:1 3 AM SPARES SCHEDULER Narrative [facility] - 06/12/2024 10:06 PM SPARES SCHEDULER Vent Rate: 62 bpm RR Interval: 964 msec [place] Interval: 187 msec QRS Duration: 170 msec QT Interval: 405 msec QTC Interval: 410 msec P-R-T [place]: 48 - -41 - 68 degrees IMPRESSION: SINUS RHYTHM RIGHT BUNDLE BRANCH BLOCK ANTEROSEPTAL MYOCARDIAL INFARCTION , PROBABLY RECENT Electronically Signed By: Will Barahona MD, [facility] Joanna Byrne MD ECG ORDERABLES Final R esult [facility] * (ABNORMAL) Albumin Creatinine Ratio, Urine (01/22/2023 2:40 PM CDT) Albumin Ur 316.7 mg/L [facility] ([place]) Comment: Interpretive Data No reference range established. Current interpretive data was last revised 2018. Testing performed by: [facility], [address] [place] [address]., [id number] Creatinine Ur 124.7 mg/dL [facility] ([place]) Comment: Interpretive Data No reference range established. Current interpretive data was last revised 2018. Testing performed by: [facility], [address] [place] [address]., [id number] Albumin Creatinine Ratio, Ur 254(H) 1 - 29 mg/g [facility] ([place]) Comment:Testing performed by : [facility], [address] [place] [address]., [id number] Urine 01/22/2023 2:40 PM CDT 01/22/2023 7:15 PM CDT us Sweta Wilson NP LAB URINE ORDERABLES Final Resu lt Performing Organization Address City/[facility]/ZIP Co de Phone Number ADDIS [facility] ([place]) [address] [facility] Department [place] [address] from Last 3 Months or Most Recently Relevant to Health Maintenance Insurance [facility] [employer] [place] [facility] [employer] Advance Directives For more information, please contact: [phone] * Full Code (Latest Code Status on File) Date Activated Date Inactivated Comments 06/12/2024 4:42 PM 06/14/2024 10:56 PM * Full Code Date Activated Date Inactivated Comments 03/04/2022 11:15 AM 03/05/2022 5:21 PM * Full Code Date Activated Date Inactivated Comments 01/28/2022 11:40 AM 01/29/2022 3:11 PM * Full Code Date Activated Date Inactivated Comments 12/24/2021 12:36 PM 12/24/2021 7:49 PM * Full Code Date Activated Date Inactivated Comments 03/08/2021 12:44 AM 03/09/2021 10:25 PM Care Teams 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
--- OUTSIDE RECORDS SUMMARY | 2024-08-12 02:04 | XMS_ITS | Clinical Summary ---
Author Organization [facility] Medical Office Building A Address [address] [place] [address] Care Team Providers Care Lapidarist Name Role Phone Medhat Benton MD Primary Care Provider [phone] Constantine Bardales MD Unavailable [phone] Allergies No known active allergies Medications fenofibrate nanocrystallized (TRICOR) 145 mg tablet Take 1 tablet (145 mg total) by mouth daily 06/30/20 20 Active nitroglycerin (NITROSTAT) 0.[address] 1 tablet (0.4 mg total) under the tongue every 5 (five) minutes as needed 12/24/19 20 Active valACYclovir (VALTREX) 1 gram tablet Take 1 tablet (1,000 mg total) by mouth 2 (two) times a day as needed 12/29/19 20 Active aspirin 81 mg enteric coated tablet Take 1 tablet (81 mg total) by mouth daily Active ticagrelor (BRILINTA) 90 mg tablet Take 1 tablet (90 mg total) by mouth 2 (two) times a day 60 tablet 10 01/30/20 22 Active atorvastatin (LIPITOR) 80 mg tablet Take [...] (50 mg total) by mouth daily 09/15/19 Active lisinopriL (PRINIVIL,ZESTRIL) 10 mg tablet Take [...] DAILY WITH MEALS 180 tablet 3 02/22/20 Active Ozempic 2 mg/dose (8 mg/3 mL) pen injector injection Inject 2 mg under the skin once a week sundays04/01/20 Active Active Problems Problem Noted Date Diagnosed Date NSTEMI (non-ST elevated myocardial infarction) ( [facility]) 06/12/2024 Class 1 obesity due to exces [...] 5 days per week Presence 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 Goal is less than 140/90 Personally reviewed labs. Continue lisinopril metoprolol Encouraged to monitor weight and B/P at home Encouraged to take medications as prescribed. Assessment & Plan (07/07/2023 4:55 PM LINUX NETWORK SYSTEMS ADMINISTRATOR): This is a chronic condition which is [...] 12/04/2021 Type 2 diabetes mellitus with hyperglycemia ([facility]) 11/22/2021 Assessment & Plan (11/10/2023 10:38 AM [...] metoprolol Assessment & Plan (07/07/2023 4:54 PM LINUX NETWORK SYSTEMS ADMINISTRATOR): This is a chronic condition which is [...] Continue on atorvastatin and fenofibrate History of MT and stents placed-10 Assessment & Plan (04/09/2022 [...] Continue on atorvastatin and fenofibrate History of MT and stents placed-10 Assessment & Plan (11/23/2021 [...] than 70 History of macrovascular disease - MT with stent placement. ?? Hyperlipidemia associated with [...] prescribed. Assessment & Plan (07/07/2023 4:55 PM LINUX NETWORK SYSTEMS ADMINISTRATOR): This is a chronic condition which is [...] ?? Assessment & Plan (08/19/2021 5:05 PM LINUX NETWORK SYSTEMS ADMINISTRATOR): This is a chronic condition which is [...] week. Please take medications as prescribed. Old MT (myocardial infarction) Resolved Problems Problem Noted Date Diagnosed Date Resolved Date Abnormal stress test 01/24/2022 022 Overview (01/24/2022): Added automatically from request for surgery [id number] Hyperglycemia 12/24/2021 04/09/2022 Type 2 diabetes mellitus wit hout complication, without long-term current use of insulin ([facility]) 08/01/2020 04/09/2022 Assessment & Plan (08/19/2021 5:04 PM LINUX NETWORK SYSTEMS ADMINISTRATOR): This is a chronic condition which not [...] than 70 History of macrovascular disease - MT with stent placement. ?? Assessment & Plan [...] No history of macrovascular disease - CVA, MT ?? Assessment & Plan (02/01/2021 3:22 PM [...] blood sugar drops further. Personally reviewed labs (2..21) Bun-13, creat- 0.92, GFR- 95. Normal kidney function B/P today-??118/76??, currently on norvasc and metoprolol. ??At goal blood pressure is <140/90 and as close to 120/80 as possible. Personally reviewed Lipid panel (2.21 from care every where) Chol-129, trig-197, HDL-26, LDL-64, currently on??atorvastatin 80 mg daily and fenofibrate.?at Goal of less than 70 No history of macrovascular disease - CVA, MT ?? Assessment & Plan (10/31/2020 5:42 PM [...] blood sugar drops further. Personally reviewed labs (2..21) Bun-13, creat- 0.92, GFR- 95. Normal kidney function B/P today-??124/74??, currently on norvasc and metoprolol. ??At goal blood pressure is <140/90 and as close to 120/80 as possible. Personally reviewed Lipid panel (2.21 from care every where) Chol-129, trig-197, HDL-26, LDL-64, currently on??atorvastatin 80 mg daily and fenofibrate.?at Goal of less than 70 No history of macrovascular disease - CVA, MT ?? Freestyle Miguel continuous glucose monitor applied [...] ? 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 Assessment & Plan (08/01/2020 4:48 PM LINUX NETWORK SYSTEMS ADMINISTRATOR): This is a chronic condition which is [...] No history of macrovascular disease - CVA, MT. See dietitian as scheduled 08/29/20 Encounters Date Type Department Care Team Description 06/14/2024 11:30 AM LINUX NETWORK SYSTEMS ADMINISTRATOR - 06/14/2024 1:00 PM LINUX NETWORK SYSTEMS ADMINISTRATOR Surgery [facility] Cardiac Catheterization Lab [address] [place] [id number] Constantine Bardales MD LEFT HEART CATHETERIZATION WITH CORONARY ANGIOGRAPHY AND WITH OR WITHOUT LEFT VENTRICULOGRAM [id number] 06/13/2024 Orders Only [facility] Cardiac Catheterization Lab [address] [place] [id number] Constantine Bardales MD NSTEMI (non-ST elevated myocardial infarction) (CMS/HCC) (HCC) (Primary Dx) 06/12/2024 11:14 AM LINUX NETWORK SYSTEMS ADMINISTRATOR - 06/14/2024 6:55 PM LINUX NETWORK SYSTEMS ADMINISTRATOR Hospital Encounter [address] [address] Joanna Byrne MD Rudomiotov, Olga, MD Burton, Jeffrey Ryan, Chest pain, unspecified type (Primary Dx); NSTEMI (non-ST elevated myocardial infarction) ([facility]) ([facility]) Discharge Disposition: Discharge to home or self care from Last 3 Months Medical History Medical History Date Comments Type 2 diabetes mellitus ([facility]) Hypertension Hyperlipidemia Obstructive sleep apnea Type 2 diabetes mellitus wit hout complication, without long-term current use of insulin ([facility]) ([facility]) 08/01/2020 Hyperglycemia 12/24/2021 Abnormal stress test 01/24/2022 Added autom atically from request for surgery [id number] NSTEMI (non-ST elevated myoc ardial infarction) ([facility]) ([facility]) pt has [address] elevation myocardial infa rction (STEMI) ([facility]) History of herpes genitalis Family History * Patient is adopted Medical History Relation Name Comments Cancer Mother Heart attack Mother Stroke Mother Relation Name Status Comments Father unknown Alive Mother Alive Social History Tobacco Use Types Packs/Day Years Used Date Smoking Tobacco: Never Smokeless Tobacco: Current Chew Tobacco Cessation:Ready to Q uit: Not Asked; Counseling Given: Not Answered Alcohol Use Standard Drinks/Week Comments Never 0 (1 standard drink = 0.6 oz pur e alcohol) [facility] [employer] Answer Date Recorded In the past 12 months has [employer] electric, gas, oil, or water [employer] threatened to shut off services in your [...] week 06/13/2024 How often do you attend chur or baptism services? More than 4 times per year 06/13/2024 Do you belong to any clubs o r organizations such as synagogue groups, unions, fraternal or athletic groups, or [...] money to buy more. Never true 06/13/20 24 Within the past 12 months, t [...] any time in the past 12 m [facility], were you homeless or living in a senior care (including now)? No 06/13/2024 Personal Safety Answer Date Recorded Have you ever been in or are you currently in a harmful physical or emotional relationship or is someone making you feel afraid or unsafe? Denies 06/12/2024 Sex and Gender Information Value Date Recorded Sex Assigned at Not on file Legal Sex Male 11:12 AM LINUX NETWORK SYSTEMS ADMINISTRATOR Gender Identity Not on file Sexual Orientation Not on file Obstetrics History Last Filed Vital Signs Vital Sign Reading Time Taken Comments Blood Pressure 154/84 06/14/2024 3:40 PM LINUX NETWORK SYSTEMS ADMINISTRATOR Pulse 64 06/14/2024 3:40 PM LINUX NETWORK SYSTEMS ADMINISTRATOR Temperature 36.6 ??C (97.8 ??F) 06/14/2024 3:40 PM CS T Respiratory Rate 18 06/14/2024 3:40 PM LINUX NETWORK SYSTEMS ADMINISTRATOR Oxygen Saturation 94% 06/14/2024 3:40 PM LINUX NETWORK SYSTEMS ADMINISTRATOR Inhaled Oxygen Concentration - - Weight 93.4 kg (205 lb 14.4 oz) 06/12/2024 4:32 PM LINUX NETWORK SYSTEMS ADMINISTRATOR Height 172.7 cm (5' 8 ) 06/12/2024 11:1 2 AM LINUX NETWORK SYSTEMS ADMINISTRATOR Body Mass Index 31.31 06/12/2024 11:12 AM LINUX NETWORK SYSTEMS ADMINISTRATOR Plan of Treatment Health Maintenance Due Date Last Done Comments Colon Cancer Screening-Colonoscopy 1967 Hepatitis C Screening 1967 Prostate Cancer Screening-PSA 1967 DTaP/Tdap/Td Vaccine (1 - Tdap) 1978 Hepatitis B Screening 1985 Regular Well Visit/Exam 18-64 1985 Zoster Vaccine (1 of 2) 2017 Pneumococcal vaccine <65 (2 of 2 - PCV) 09/24/2017 09/24/2016 Depression Screening 01/24/2023 01/24/2022, 02/02/20 21 Albumin Creatinine Ratio, Urine 01/23/2024 01/22/2023, 09/09/2020, 09/09/2020 Covid-19 Vaccine (2 - 2023-2 5 season) 2024 10/13/2020 Influenza Vaccine (#1) 2024 04/23/2017, 2016 Dilated Eye Exam 11/09/2024 11/10/2023 Foot Exam 11/09/2024 11/10/2023, 06/19, 11/22/2021, Additional history exists Hemoglobin A1C 12/10/2024 06/12/2024, 10/19, 07/07/2023, Additional history exists Lipid Panel 06/12/2025 06/12/2024, 04/19, 01/22/2023, Additional history exists eGFR 06/14/2025 06/14/2024, 05/21, 06/12/2024, Additional history exists Medical Devices Implanted Type Area Medical Coding Instructor Device Identifier Shelf Expiration Date Model / Serial / Lot Moment.me Angio-Seal Vip 6fr Closere Device [id number] - [id number] Implanted:Qty: 1 on 03/04/2022 by Heidi Lowry MD at [facility] Other - see comments Tero Sensor Tower Hipolito 12/17/2022 [id number] / / [id number] Med[employer] X [id number] Resolute Van 2.75mm 2.1-2.7fr 22mm 140cm Rapid Exchange - [id number] Implanted:Qty: 1 on 03/07/2021 by Heidi Lowry MD at [facility] Stent Medtronic Inc [id number] / / [employer] Hipolito Synergy 2.25mm 16mm 144cm Radiopaque 1 Access Port Inflation [id number] - [id number] Implanted:Qty: 1 on 03/04/2022 by Heidi Lowry MD at [facility] Stent [employer] Hipolito 10/11/2022 [id number] / / [id number] Med[employer] X [id number] Resolute [place] 2.5mm 2.1-2.7fr 15mm 140cm Rapid Exchange - [id number] Implanted:Qty: 1 on 03/07/2021 by Heidi Lowry MD at [facility] Medtronic Inc [id number] / / Daig Hipolito [id number] Device Closure Angio-Seal Vip Bondek-Plus Polyglyd L70 Cm Od6 Fr Odsec.035 In Vascular - [id number] Implanted:Qty: 1 on 03/07/2021 [facility] [employer] [id number] / / [employer] Hipolito Synergy 2.5mm 12mm 144cm Radiopaque 1 Access Port Inflation Lumen [id number] - [id number] Implanted:Qty: 1 on 01/28/2022 by Heidi Lowry MD at [facility] [employer] Hipolito 07/24/2022 [id number] / / [id number] [employer] Hipolito Synergy 2.5mm 32mm 144cm Radiopaque 1 Access Port Inflation Lumen [id number] - [id number] Implanted:Qty: 1 on 01/28/2022 by Heidi Lowry MD at [facility] [employer] 06/18/2022 [id number] / / [id number] [employer] Synergy 2.5mm 20mm 144cm Radiopaque 1 Access Port Inflation Lumen [id number] - [id number] Implanted:Qty: 1 on 01/28/2022 by Heidi Lowry MD at [facility] [employer] 05/08/2022 [id number] / / [id number] Angio-Seal Vip 6fr Closere Device [id number] - [id number] Implanted:Qty: 1 on 01/28/2022 by Heidi Lowry MD at [facility] [employer] 11/16/2022 [id number] / / [id number] [facility] Angio-Seal Vip 6fr Closere Device [id number] - [id number] Implanted:Qty: 1 on 06/14/2024 by Constantine Bardales MD at [facility] Sensor Tower [facility] [id number] / / Procedures Procedure Name Priority Date/Time Associated Diagnosis Comments POCT GLUCOSE DEVICE Routine 06/14/2024 4 :57 PM LINUX NETWORK SYSTEMS ADMINISTRATOR LEFT HEART CATHETERIZATION WITH CORONARY ANGIOGRAPHY AND WITH AND WITHOUT LEFT VENTRICULOGRAM Routine 06/14/2024 12:24 PM LINUX NETWORK SYSTEMS ADMINISTRATOR NSTEMI (non-ST elevated myocardial infarction) (CMS/HCC) (HCC) POCT GLUCOSE DEVICE Routine 06/14/2024 1 1:08 AM LINUX NETWORK SYSTEMS ADMINISTRATOR APTT Timed 06/14/2024 10:36 AM LINUX NETWORK SYSTEMS ADMINISTRATOR EGFR Routine 06/14/2024 3:16 AM LINUX NETWORK SYSTEMS ADMINISTRATOR APTT Timed 06/14/2024 3:16 AM LINUX NETWORK SYSTEMS ADMINISTRATOR BASIC METABOLIC PANEL Routine 06/14/2024 3:16 AM LINUX NETWORK SYSTEMS ADMINISTRATOR POCT GLUCOSE DEVICE Routine 06/13/2024 9 :02 PM LINUX NETWORK SYSTEMS ADMINISTRATOR POCT GLUCOSE DEVICE Routine 06/13/2024 5 :12 PM LINUX NETWORK SYSTEMS ADMINISTRATOR POCT GLUCOSE DEVICE Routine 06/13/2024 1 1:40 AM LINUX NETWORK SYSTEMS ADMINISTRATOR APTT Timed 06/13/2024 10:23 AM LINUX NETWORK SYSTEMS ADMINISTRATOR POCT GLUCOSE DEVICE Routine 06/13/2024 7 :46 AM LINUX NETWORK SYSTEMS ADMINISTRATOR APTT Timed 06/13/2024 4:38 AM LINUX NETWORK SYSTEMS ADMINISTRATOR POCT GLUCOSE DEVICE Routine 06/13/2024 2 :48 AM LINUX NETWORK SYSTEMS ADMINISTRATOR HEMOGLOBIN A1C Add-On 06/12/2024 9:29 PM LINUX NETWORK SYSTEMS ADMINISTRATOR EGFR Routine 06/12/2024 9:29 PM LINUX NETWORK SYSTEMS ADMINISTRATOR DIFFERENTIAL AUTO Routine 06/12/2024 9:2 9 PM LINUX NETWORK SYSTEMS ADMINISTRATOR BASIC METABOLIC PANEL Routine 06/12/2024 9:29 PM LINUX NETWORK SYSTEMS ADMINISTRATOR CBC WITH AUTO DIFFERENTIAL Routine 06/12/2024 9:29 PM LINUX NETWORK SYSTEMS ADMINISTRATOR APTT Timed 06/12/2024 9:29 PM LINUX NETWORK SYSTEMS ADMINISTRATOR POCT GLUCOSE DEVICE Routine 06/12/2024 8 :24 PM LINUX NETWORK SYSTEMS ADMINISTRATOR TRANSTHORACIC ECHO (TTE) COMPLETE W DOPPLER/CF WO CONTRAST ED 06/12/2024 8:00 PM LINUX NETWORK SYSTEMS ADMINISTRATOR POCT GLUCOSE DEVICE Routine 06/12/2024 4 :15 PM LINUX NETWORK SYSTEMS ADMINISTRATOR CBC WITHOUT DIFFERENTIAL STAT 06/12/2024 3:14 PM LINUX NETWORK SYSTEMS ADMINISTRATOR PROTIME-INR STAT 06/12/2024 3:14 PM LINUX NETWORK SYSTEMS ADMINISTRATOR TROPONIN T HIGH-SENSITIVITY 4-HR Timed 06/12/2024 3:14 PM LINUX NETWORK SYSTEMS ADMINISTRATOR LIPID PANEL Timed 06/12/2024 1:27 PM LINUX NETWORK SYSTEMS ADMINISTRATOR TROPONIN T HIGH-SENSITIVITY 2-HOUR Timed 06/12/2024 1:27 PM LINUX NETWORK SYSTEMS ADMINISTRATOR XR CHEST 1 VIEW ED 06/12/2024 12:13 PM LINUX NETWORK SYSTEMS ADMINISTRATOR POCT GLUCOSE DEVICE Routine 06/12/2024 1 1:55 AM LINUX NETWORK SYSTEMS ADMINISTRATOR DIFFERENTIAL AUTO STAT 06/12/2024 11: 41 AM LINUX NETWORK SYSTEMS ADMINISTRATOR CBC WITH AUTO DIFFERENTIAL STAT 06/12/2024 11:41 AM LINUX NETWORK SYSTEMS ADMINISTRATOR EGFR STAT 06/12/2024 11:39 AM LINUX NETWORK SYSTEMS ADMINISTRATOR PRO B-TYPE NATRIURETIC PEPTIDE STAT 06/12/2024 11:39 AM LINUX NETWORK SYSTEMS ADMINISTRATOR TROPONIN T HIGH-SENSITIVITY SERIES (BASELINE, 2HR, 4HR, 6HR) STAT 06/12/2024 11:39 AM LINUX NETWORK SYSTEMS ADMINISTRATOR COMPREHENSIVE METABOLIC PANEL STAT 06/12/2024 11:39 AM LINUX NETWORK SYSTEMS ADMINISTRATOR ECG 12-LEAD STAT 06/12/2024 11:13 AM LINUX NETWORK SYSTEMS ADMINISTRATOR ALBUMIN CREATININE RATIO, URINE Routine 01/22/2023 2:40 PM CDT Type 2 diabetes mellitus with hyperglycemia, with long-term current use of insulin ([facility] ([facility]) from Last 3 Months or Most Recently Relevant to Health Maintenance Results * POCT glucose (06/14/2024 4:57 PM LINUX NETWORK SYSTEMS ADMINISTRATOR) Glucose, POC 80 70 - 199 mg/dL Blood 06/14/2024 4:57 PM LINUX NETWORK SYSTEMS ADMINISTRATOR 06/14/2024 4:57 PM LINUX NETWORK SYSTEMS ADMINISTRATOR Trevon Sanchez DO LAB POCT ORDERABLES - DEV ICE Final Result ADDIS WARREN [address] [address] Department [place] [address] * LEFT HEART CATHETERIZATION WITH CORONARY ANGIOGRAPHY AND WITH AND WITHOUT LEFT VENTRICULOGRAM (06/14/2024 12:24 PM LINUX NETWORK SYSTEMS ADMINISTRATOR) Anatomical Region Laterality Modality X-Ray Angiograph y Narrative 06/14/2024 1:06 PM LINUX NETWORK SYSTEMS ADMINISTRATOR Procedure RCFA micropuncture access with placement 6F [...] office in 2 weeks. Constantine Bardales MD [facility] Heart [facility] Vascular 06/14/2024 1:06 PM Constantine Bardales MD CV CARDIAC CATH PROCEDURES Final Result * POCT glucose (06/14/2024 11:08 AM LINUX NETWORK SYSTEMS ADMINISTRATOR) Glucose, POC 107 70 - 199 mg/dL Blood 06/14/2024 11:0 8 AM LINUX NETWORK SYSTEMS ADMINISTRATOR 06/14/2024 11:08 AM LINUX NETWORK SYSTEMS ADMINISTRATOR Trevon Sanchez DO LAB POCT ORDERABLES - DEV ICE Final Result Performing Organization Address [facility] de Phone Number ADDIS WARREN [address] [address] [facility] [place] [address] * (ABNORMAL) aPTT (06/14/2024 10:36 AM LINUX NETWORK SYSTEMS ADMINISTRATOR) aPTT 127(H) 28 - 38 sec Comment: Interpretive Data Heparin therapeutic range: 66.0 - 100.0 seconds. Range based on correlation with therapeutic heparin activity range of 0.3 - 0.7 Units/mL. Current interpretive data was last revised on 2023. Blood 06/14/2024 10:3 6 AM LINUX NETWORK SYSTEMS ADMINISTRATOR 06/14/2024 10:52 AM LINUX NETWORK SYSTEMS ADMINISTRATOR Trevon Sanchez DO LAB BLOOD ORDERABLES Alida l Result Performing Organization Address [facility] de Phone Number ADDIS YM [address] [address] [facility] [place] [address] * eGFR (06/14/2024 3:16 AM LINUX NETWORK SYSTEMS ADMINISTRATOR) eGFR 62 >=60 mL/min/1. 73 m2 Comment: [...] last reviewed 2021. Blood 06/14/2024 3:16 AM LINUX NETWORK SYSTEMS ADMINISTRATOR 06/14/2024 3:34 AM LINUX NETWORK SYSTEMS ADMINISTRATOR Sarahi Walters MD LAB BLOOD ORDERABLES Final Re sult Performing Organization Address [facility] Co de Phone Number ADDIS KELVIN [address] [address] Department [place] [address] * (ABNORMAL) aPTT (06/14/2024 3:16 AM LINUX NETWORK SYSTEMS ADMINISTRATOR) aPTT 52(H) 28 - 38 sec Comment: Interpretive Data Heparin therapeutic range: 66.0 - 100.0 seconds. Range based on correlation with therapeutic heparin activity range of 0.3 - 0.7 Units/mL. Current interpretive data was last revised on 2023. Blood 06/14/2024 3:16 AM LINUX NETWORK SYSTEMS ADMINISTRATOR 06/14/2024 3:32 AM LINUX NETWORK SYSTEMS ADMINISTRATOR Trevon Sanchez DO LAB BLOOD ORDERABLES Alida l Result Performing Organization Address City/[facility]/ZIP Co de Phone Number KATHYJENA WARREN [address] [address] Department [place] [address] * (ABNORMAL) Basic metabolic panel (06/14/2024 3:16 AM LINUX NETWORK SYSTEMS ADMINISTRATOR) Sodium 140 135 - 145 mmol/L Potassium, pl 4.0 3.3 - 4.9 mmol/L CERNER Chloride 105 97 - 110 mmol/L [facility] CH CO2 24 22 - 32 mmol/L [facility] CH Anion gap 11 2 - 15 mmol/L [facility] BUN 26(H) 6 - 25 mg/dL [facility] Creatinine 1.35(H) 0.80 - 1.30 mg/dL [facility] Glucose 140 70 - 199 mg/dL [facility] Comment: Interpretive Data Fasting glucose >/= 126 [...] classification and Diagnosis of Diabetes Diabetes Care 202; 46: S19-S40. Current interpretive data was last revised 2022. Calcium 9.5 8.5 - 10.3 mg/dL [facility] Blood 06/14/2024 3:16 AM LINUX NETWORK SYSTEMS ADMINISTRATOR 06/14/2024 3:32 AM LINUX NETWORK SYSTEMS ADMINISTRATOR Sarahi Walters MD LAB BLOOD ORDERABLES Final Re sult Performing Organization Address City/[facility]/ZIP Co de Phone Number ADDIS WARREN [address] [employer] [place], [place] [id number] * POCT glucose (06/13/2024 9:02 PM LINUX NETWORK SYSTEMS ADMINISTRATOR) Glucose, POC 115 70 - 199 mg/dL Blood 06/13/2024 9:02 PM LINUX NETWORK SYSTEMS ADMINISTRATOR 06/13/2024 9:02 PM LINUX NETWORK SYSTEMS ADMINISTRATOR Sarahi Walters MD LAB POCT ORDERABLES - DEVICE Final Result Performing Organization Address City/[facility]/ZIP Co de Phone Number ADDIS WARREN [address] [address] Department [place] [address] * POCT glucose (06/13/2024 5:12 PM LINUX NETWORK SYSTEMS ADMINISTRATOR) Glucose, POC 107 70 - 199 mg/dL Blood 06/13/2024 5:12 PM LINUX NETWORK SYSTEMS ADMINISTRATOR 06/13/2024 5:12 PM LINUX NETWORK SYSTEMS ADMINISTRATOR Result [facility] Sarahi Walters MD LAB POCT ORDERABLES - DEVICE Final Result Performing Organization Address [facility] Co de Phone Number ADDIS WARREN [address] [address] [facility] [place] [address] * POCT glucose (06/13/2024 11:40 AM LINUX NETWORK SYSTEMS ADMINISTRATOR) Glucose, POC 99 70 - 199 mg/dL Blood 06/13/2024 11:4 0 AM LINUX NETWORK SYSTEMS ADMINISTRATOR 06/13/2024 11:40 AM LINUX NETWORK SYSTEMS ADMINISTRATOR Result [facility] Sarahi Walters MD LAB POCT ORDERABLES - DEVICE Final Result Performing Organization Address [facility] de Phone Number ADDIS WARREN [address] [address] [facility] [place], [place] [id number] * (ABNORMAL) aPTT (06/13/2024 10:23 AM LINUX NETWORK SYSTEMS ADMINISTRATOR) aPTT 74(H) 28 - 38 sec Comment: Interpretive Data Heparin therapeutic range: 66.0 - 100.0 seconds. Range based on correlation with therapeutic heparin activity range of 0.3 - 0.7 Units/mL. Current interpretive data was last revised on 2023. Blood 06/13/2024 10:2 3 AM LINUX NETWORK SYSTEMS ADMINISTRATOR 06/13/2024 10:39 AM LINUX NETWORK SYSTEMS ADMINISTRATOR Trevon Sanchez DO LAB BLOOD ORDERABLES Alida l Result Performing Organization Address [facility] Co de Phone Number ADDIS WARREN [address] [address] [facility] [place] [address] * POCT glucose (06/13/2024 7:46 AM LINUX NETWORK SYSTEMS ADMINISTRATOR) Glucose, POC 118 70 - 199 mg/dL Blood 06/13/2024 7:46 AM LINUX NETWORK SYSTEMS ADMINISTRATOR 06/13/2024 7:46 AM LINUX NETWORK SYSTEMS ADMINISTRATOR Sarahi Walters MD LAB POCT ORDERABLES - DEVICE Final Result Performing Organization Address [facility] de Phone Number ADDIS WARREN [address] [address] [facility] [place] [address] * (ABNORMAL) aPTT (06/13/2024 4:38 AM LINUX NETWORK SYSTEMS ADMINISTRATOR) aPTT 66(H) 28 - 38 sec Comment: Interpretive Data Heparin therapeutic range: 66.0 - 100.0 seconds. Range based on correlation with therapeutic heparin activity range of 0.3 - 0.7 Units/mL. Current interpretive data was last revised on 2023. Blood 06/13/2024 4:38 AM LINUX NETWORK SYSTEMS ADMINISTRATOR 06/13/2024 5:42 AM LINUX NETWORK SYSTEMS ADMINISTRATOR Trevon Sanchez DO LAB BLOOD ORDERABLES Alida l Result Performing Organization Address [facility] de Phone Number ADDIS WARREN [address] [address] [facility] [place] [address] * POCT glucose (06/13/2024 2:48 AM LINUX NETWORK SYSTEMS ADMINISTRATOR) Pathologist [facility] Glucose, POC 165 70 - 199 mg/dL Blood 06/13/2024 2:48 AM LINUX NETWORK SYSTEMS ADMINISTRATOR 06/13/2024 2:48 AM LINUX NETWORK SYSTEMS ADMINISTRATOR Sarahi Walters MD LAB POCT ORDERABLES - DEVICE Final Result Performing Organization Address [facility] de Phone Number ADDIS WARREN [address] [address] [facility] [place] [address] * eGFR (06/12/2024 9:29 PM LINUX NETWORK SYSTEMS ADMINISTRATOR) eGFR 62 >=60 mL/min/1. 73 m2 Comment: [...] of Race in Diagnosing Kidney Disease, JASN 202). The CKD-EPI equation should not be used for patients with unstable renal function and has not been validated in children and those over 70. Current interpretive data was last reviewed 2021. Blood 06/12/2024 9:29 PM LINUX NETWORK SYSTEMS ADMINISTRATOR 06/12/2024 9:45 PM LINUX NETWORK SYSTEMS ADMINISTRATOR us Amira Martin NP LAB BLOOD ORDERABLES Final R esult [facility] [address] Department [place] [address] * Differential, auto (06/12/2024 9:29 PM LINUX NETWORK SYSTEMS ADMINISTRATOR) Neutrophil abs 5.5 1.5 - 6.5 K/cumm Imm gran abs 0.0 0.0 - 0.1 K/cumm [facility] Lymphocyte abs 1.9 0.8 - 3.3 K/cumm [facility] Monocyte abs 0.7 0.2 - 0.8 K/cumm [facility] Eosinophil abs 0.1 0.0 - 0.5 K/cumm [facility] Basophil abs 0.0 0.0 - 0.1 K/cumm [facility] Neutrophil pct 66.7 % [facility] Comment: Interpretive Data Percent cell count reference ranges are not reported, since discordance with absolute values may lead to misinterpretation of CBC data. Current Interpretive Data was last revised on 2017. Imm gran pct 0.2 % [facility] Comment: Interpretive Data Percent cell count reference [...] revised on 2017. Monocyte pct 8.2 % [facility] Comment: Interpretive Data Percent cell count [...] revised on 2017. Basophil pct 0.5 % [facility] Comment: Interpretive Data Percent cell count reference ranges are not reported, since discordance with absolute values may lead to misinterpretation of CBC data. Current Interpretive Data was last revised on 2017. Blood 06/12/2024 9:29 PM LINUX NETWORK SYSTEMS ADMINISTRATOR 06/12/2024 9:45 PM LINUX NETWORK SYSTEMS ADMINISTRATOR us Amira Martin NP LAB BLOOD ORDERABLES Final R esult [facility] [address] Department [place] [address] * (ABNORMAL) CBC with auto differential (06/12/2024 9:29 PM LINUX NETWORK SYSTEMS ADMINISTRATOR) WBC 8.2 3.8 - 9.9 K/cumm Hgb 14.2 13.0 - 17.5 g/dL [facility] Hct 45.1 38.9 - 50.3 % [facility] Plt 274 150 - 400 K/cumm [facility] MPV 11.1 9.1 - 12.3 fL [facility] RBC 4.96 4.30 - 5.80 M/cumm [facility] MCV 90.9 81.3 - 96.4 fL [facility] MCH 28.6 27.1 - 33.3 pg [facility] MCHC 31.5(L) 32.3 - 35.7 g/dL [facility] RDW CV 12.6 11.1 - 14.9 % [facility] RDW SD 41.6 35.7 - 48.1 fL [facility] NRBC abs 0.00 0.00 - 0.01 K/cumm [facility] Blood 06/12/2024 9:29 PM LINUX NETWORK SYSTEMS ADMINISTRATOR 06/12/2024 9:45 PM LINUX NETWORK SYSTEMS ADMINISTRATOR Amira Martin LINEN CONTROLLER LAB BLOOD ORDERABLES Final R esult Performing Organization Address [facility] Co de Phone Number [facility] [address] [employer] [place], [place] [id number] * (ABNORMAL) aPTT (06/12/2024 9:29 PM LINUX NETWORK SYSTEMS ADMINISTRATOR) aPTT 53(H) 28 - 38 sec Comment: Interpretive Data Heparin therapeutic range: 66.0 - 100.0 seconds. Range based on correlation with therapeutic heparin activity range of 0.3 - 0.7 Units/mL. Current interpretive data was last revised on 2023. Blood 06/12/2024 9:29 PM LINUX NETWORK SYSTEMS ADMINISTRATOR 06/12/2024 9:45 PM LINUX NETWORK SYSTEMS ADMINISTRATOR Sarahi Walters MD LAB BLOOD ORDERABLES Final Re sult Performing Organization Address City/[facility] Co de Phone Number [facility] [address] [address] Department [employer] [place], [place] [id number] * (ABNORMAL) Hemoglobin A1c (06/12/2024 9:29 PM LINUX NETWORK SYSTEMS ADMINISTRATOR) Hgb A1C 6.5(H) 4.0 - 5.6 % Estimated Average Glucose 140 mg/dL [facility] Comment: The ADA recommends reporting an estimated Average Glucose (eAG) with all Hemoglobin A1c results using the equation derived from a study of 507 normal and diabetic adults. ??Minority populations were underrepresented and children were not included. ?? (Diabetes Care 31:3719-2205, 2008). ??The eAG is not equivalent to a fasting glucose. Blood 06/12/2024 9:29 PM LINUX NETWORK SYSTEMS ADMINISTRATOR 06/13/2024 9:43 AM LINUX NETWORK SYSTEMS ADMINISTRATOR Sarahi Walters MD LAB BLOOD ORDERABLES Final [facility] [address] [address] Department [place] [address] * (ABNORMAL) Basic metabolic panel (06/12/2024 9:29 PM LINUX NETWORK SYSTEMS ADMINISTRATOR) Sodium 142 135 - 145 mmol/L Potassium, pl 4.5 3.3 - 4.9 mmol/L [facility] Chloride 108 97 - 110 mmol/L [facility] CO2 23 22 - 32 mmol/L [facility] Anion gap 11 2 - 15 mmol/L [facility] BUN 30(H) 6 - 25 mg/dL [facility] Creatinine 1.34(H) 0.80 - 1.30 mg/dL [facility] Glucose 105 70 - 199 mg/dL [facility] Comment: Interpretive [...] classification and Diagnosis of Diabetes Diabetes Care 202; 46: S19-S40. Current interpretive data was last revised 2022. Calcium 9.7 8.5 - 10.3 mg/dL [facility] Blood 06/12/2024 9:29 PM LINUX NETWORK SYSTEMS ADMINISTRATOR 06/12/2024 9:45 PM LINUX NETWORK SYSTEMS ADMINISTRATOR Amira Martin NP LAB BLOOD ORDERABLES Final R esult ADDIS WARREN [address] [address] Department [place] [address] * POCT glucose (06/12/2024 8:24 PM LINUX NETWORK SYSTEMS ADMINISTRATOR) Glucose, POC 106 70 - 199 mg/dL Blood 06/12/2024 8:24 PM LINUX NETWORK SYSTEMS ADMINISTRATOR 06/12/2024 8:24 PM LINUX NETWORK SYSTEMS ADMINISTRATOR us Sarahi Walters MD LAB POCT ORDERABLES - DEVICE Final Result ADDIS [address] [facility] [place] [address] * TRANSTHORACIC ECHO (TTE) COMPLETE W DOPPLER/CF WO CONTRAST (06/12/2024 8:00 PM LINUX NETWORK SYSTEMS ADMINISTRATOR) Anatomical Region Laterality Modality Ultrasound 06/12/2024 7:17 PM LINUX NETWORK SYSTEMS ADMINISTRATOR Narrative 06/13/2024 1:16 AM LINUX NETWORK SYSTEM[place] [address] Echocardiogram Report Patient Name: JOSE AGUILAR R : 1965 Study Date: 06/12/2024 7:17:59 PM Gender: M Tech: ME Location: [id number] Ref Provider: JOANNA BYRNE Height(Cm): 173 BSA: [...] Signed By: Gene Fernandes MD 2024-06-13 01:16:12 LINUX NETWORK SYSTEMS ADMINISTRATOR Procedure Note Gene Fernandes MD - 06/13/2024 [place] [address] Echocardiogram Report Patient Name: JOSE AGUILAR R : 1965 Study Date: 06/12/2024 7:17:59 PM Gender: M Tech: ME Location: [place] [address] Ref Provider: JOANNA BYRNE Height(Cm): 173 BSA: [...] PHT4.05 cm2 ___ ___ ___ MV Decel [id number] [ 104 - 258 ] msec ___ [...] Signed By: Gene Fernandes MD 2024-06-13 01:16:12 LINUX NETWORK SYSTEMS ADMINISTRATOR Joanna Byrne MD CV ECHO PROCEDURES Alida l Result * POCT glucose (06/12/2024 4:15 PM LINUX NETWORK SYSTEMS ADMINISTRATOR) Glucose, POC 194 70 - 199 mg/dL Blood 06/12/2024 4:15 PM LINUX NETWORK SYSTEMS ADMINISTRATOR 06/12/2024 4:15 PM LINUX NETWORK SYSTEMS ADMINISTRATOR Sarahi Walters MD LAB POCT ORDERABLES - DEVICE Final Result Performing Organization Address [facility] Phone Number ADDIS [address] [address] Department [place] [address] * (ABNORMAL) Troponin T high-sensitivity 4-hour (06/12/2024 3:14 PM LINUX NETWORK SYSTEMS ADMINISTRATOR) Trop T hs 62(H) <=22 ng/L Comment: [...] BY: Gillian Rush Blood 06/12/2024 3:14 PM LINUX NETWORK SYSTEMS ADMINISTRATOR 06/12/2024 3:14 PM LINUX NETWORK SYSTEMS ADMINISTRATOR Joanna Byrne MD LAB BLOOD ORDERABLES Fi nal Result Performing Organization Address City/[facility] de Phone Number [facility] [address] [address] [place] [address] * Protime-INR (06/12/2024 3:14 PM LINUX NETWORK SYSTEMS ADMINISTRATOR) Pathologist [facility] PT 11.6 9.7 - 13.0 sec INR 1.07 0.90 - 1.20 [facility] Comment: Interpretive data Oral anticoagulant therapeutic ranges: Venous thromboembolism prophylaxis or treatment: 2.0-3.0 CARDIOLOGY Standard range: 2.0-3.0 High-intensity range: 2.5-3.5 Refer to indication-specific guidelines for appropriate target ranges for prosthetic heart valve replacement. Current interpretive data was last revised on 2019. Blood 06/12/2024 3:14 PM LINUX NETWORK SYSTEMS ADMINISTRATOR 06/12/2024 3:14 PM LINUX NETWORK SYSTEMS ADMINISTRATOR Narrative [facility] - 06/12/2024 3:34 PM LINUX NETWORK SYSTEMS ADMINISTRATOR Baseline prior to heparin initiation Joanna Byrne MD LAB BLOOD ORDERABLES Fi nal Result Performing Organization Address [facility] de Phone Number ADDIS WARREN [address] [address] Department of Laboratories [place], [place] [id number] * (ABNORMAL) CBC without differential (06/12/2024 3:14 PM LINUX NETWORK SYSTEMS ADMINISTRATOR) [facility] WBC 9.2 3.8 - 9.9 K/cumm Hgb 14.7 13.0 - 17.5 g/dL [facility] Hct 45.6 38.9 - 50.3 % [facility] Plt 286 150 - 400 K/cumm [facility] MPV 11.1 9.1 - 12.3 fL [facility] RBC 5.04 4.30 - 5.80 M/cumm [facility] MCV 90.5 81.3 - 96.4 fL [facility] MCH 29.2 27.1 - 33.3 pg [facility] MCHC 32.2(L) 32.3 - 35.7 g/dL [facility] RDW CV 12.6 11.1 - 14.9 % [facility] RDW SD 41.1 35.7 - 48.1 fL [facility] NRBC abs 0.00 0.00 - 0.01 K/cumm [facility] Blood 06/12/2024 3:14 PM LINUX NETWORK SYSTEMS ADMINISTRATOR 06/12/2024 3:14 PM LINUX NETWORK SYSTEMS ADMINISTRATOR Narrative [facility] - 06/12/2024 3:20 PM LINUX NETWORK SYSTEMS ADMINISTRATOR Baseline prior to heparin initiation Joanna Byrne MD LAB BLOOD ORDERABLES Fi nal Result ADDIS WARREN [address] [address] [place] [address] * (ABNORMAL) Troponin T high-sensitivity 2-hour (06/12/2024 1:27 PM LINUX NETWORK SYSTEMS ADMINISTRATOR) Trop T hs 55(H) <=22 ng/L Comment: [...] BY: Gillian Rush Blood 06/12/2024 1:27 PM LINUX NETWORK SYSTEMS ADMINISTRATOR 06/12/2024 1:27 PM LINUX NETWORK SYSTEMS ADMINISTRATOR Joanna Byrne MD LAB BLOOD ORDERABLES Fi nal Result Performing Organization Address City/[facility]/ZIP Co de Phone Number ADDIS WARREN [address] [address] Department [employer] [place], [place] [phone] * (ABNORMAL) Lipid panel (06/12/2024 1:27 PM LINUX NETWORK SYSTEMS ADMINISTRATOR) Cholesterol 127 30 - 199 mg/dL Comment: [...] 3. Bradley Ocampo et al. NAILA Cardiol. 2020 November 17;5(5):540-548. doi: [email or web address] Current Interpretive Data was [...] 5 ADDIS WARREN Blood 06/12/2024 1:27 PM LINUX NETWORK SYSTEMS ADMINISTRATOR 06/12/2024 1:27 PM LINUX NETWORK SYSTEMS ADMINISTRATOR Narrative ADDIS WARREN - 06/12/2024 2:22 PM LINUX NETWORK SYSTEMS ADMINISTRATOR This lipid panel was automatically ordered due to a significant change in Troponin. The dietary status of the patient at the collection time should be correlated with the lipid results. us Joanna Byrne MD LAB BLOOD ORDERABLES Fi nal Result ADDIS [address] [address] Department [place] [address] * XR Chest 1 Vw Portable (if patient condition/safety warrant portable) (06/12/2024 12:13 PM LINUX NETWORK SYSTEMS ADMINISTRATOR) Anatomical Region Laterality Modality Body, Chest N/A Computed Radiogr aphy 06/12/2024 12:5 9 PM LINUX NETWORK SYSTEMS ADMINISTRATOR Impressions 06/12/2024 12:59 PM LINUX NETWORK SYSTEMS ADMINISTRATOR 1. ??No evidence of active cardiopulmonary disease. 2. ??No change from previous. Electronically signed by: Steve Edwards M.D. Narrative 06/12/2024 12:59 PM LINUX NETWORK SYSTEMS ADMINISTRATOR EXAM: ?? XR CHEST 1 VIEW DATE: [...] Result * POCT glucose (06/12/2024 11:55 AM LINUX NETWORK SYSTEMS ADMINISTRATOR) Glucose, POC 195 70 - 199 mg/dL Blood 06/12/2024 11:5 5 AM LINUX NETWORK SYSTEMS ADMINISTRATOR 06/12/2024 11:55 AM LINUX NETWORK SYSTEMS ADMINISTRATOR Joanna Byrne MD LAB POCT ORDERABLES - D EVICE Final Result [facility] [address] [address] Department [place] [address] * Differential, auto (06/12/2024 11:41 AM LINUX NETWORK SYSTEMS ADMINISTRATOR) Neutrophil abs 6.4 1.5 - 6.5 K/cumm Imm gran abs 0.0 0.0 - 0.1 K/cumm [facility] Lymphocyte abs 1.7 0.8 - 3.3 K/cumm [facility] Monocyte abs 0.7 0.2 - 0.8 K/cumm [facility] Eosinophil abs 0.1 0.0 - 0.5 K/cumm [facility] Basophil abs 0.0 0.0 - 0.1 K/cumm [facility] Neutrophil pct 71.8 % [facility] Comment: Interpretive Data Percent cell count reference ranges are not reported, since discordance with absolute values may lead to misinterpretation of CBC data. Current Interpretive Data was last revised on 2017. Imm gran pct 0.3 % [facility] Comment: Interpretive Data Percent cell count reference ranges are not reported, since discordance with absolute values may lead to misinterpretation of CBC data. Current Interpretive Data was last revised on 2017. Lymphocyte pct 18.6 % [facility] Comment: Interpretive Data Percent cell count reference ranges are not reported, since discordance with absolute values may lead to misinterpretation of CBC data. Current Interpretive Data was last revised on 2017. Monocyte pct 7.8 % [facility] Comment: Interpretive Data Percent cell count reference ranges are not reported, since discordance with absolute values may lead to misinterpretation of CBC data. Current Interpretive Data was last revised on 2017. Eosinophil pct 1.0 % [facility] Comment: Interpretive Data Percent cell count reference ranges are not reported, since discordance with absolute values may lead to misinterpretation of CBC data. Current Interpretive Data was last revised on 2017. Basophil pct 0.5 % [facility] Comment: Interpretive Data Percent cell count reference ranges are not reported, since discordance with absolute values may lead to misinterpretation of CBC data. Current Interpretive Data was last revised on 2017. Blood 06/12/2024 11:4 1 AM LINUX NETWORK SYSTEMS ADMINISTRATOR 06/12/2024 11:41 AM LINUX NETWORK SYSTEMS ADMINISTRATOR Joanna Byrne MD LAB BLOOD ORDERABLES Fi nal Result [facility] [address] [address] Department [place] [address] * (ABNORMAL) CBC with auto differential (06/12/2024 11:41 AM LINUX NETWORK SYSTEMS ADMINISTRATOR) WBC 8.9 3.8 - 9.9 K/cumm Hgb 14.9 13.0 - 17.5 g/dL [facility] Hct 46.5 38.9 - 50.3 % [facility] Plt 273 150 - 400 K/cumm [facility] MPV 11.1 9.1 - 12.3 fL [facility] RBC 5.14 4.30 - 5.80 M/cumm [facility] MCV 90.5 81.3 - 96.4 fL [facility] MCH 29.0 27.1 - 33.3 pg [facility] MCHC 32.0(L) 32.3 - 35.7 g/dL [facility] RDW CV 12.4 11.1 - 14.9 % [facility] RDW SD 40.6 35.7 - 48.1 fL [facility] NRBC abs 0.00 0.00 - 0.01 K/cumm [facility] Blood (Blood, Venous) 06/12/2024 11:41 AM LINUX NETWORK SYSTEMS ADMINISTRATOR 06/12/2024 11:41 AM LINUX NETWORK SYSTEMS ADMINISTRATOR Joanna Byrne MD LAB BLOOD ORDERABLES Fi nal Result Performing Organization Address [facility] de Phone Number ADDIS [address] [address] [place] [address] * (ABNORMAL) Troponin T high-sensitivity series (baseline, 2hr, 4hr, 6hr) (06/12/2024 11:39 AM LINUX NETWORK SYSTEMS ADMINISTRATOR) Trop T hs 32(H) <=22 ng/L Comment: Interpretive Data For further hscTnT resources including the diagnostic algorithm and an aid in interpretation, copy and paste this link: https://nrl.testcatalog.org/show/hsTrop Current Interpretive Data last revised 2020. Blood 06/12/2024 11:3 9 AM LINUX NETWORK SYSTEMS ADMINISTRATOR 06/12/2024 11:39 AM LINUX NETWORK SYSTEMS ADMINISTRATOR Joanna Byrne MD LAB BLOOD ORDERABLES Fi nal Result Performing Organization Address [facility] de Phone Number ADDIS [address] [address] [place] [address] * (ABNORMAL) eGFR (06/12/2024 11:39 AM LINUX NETWORK SYSTEMS ADMINISTRATOR) eGFR 52(L) >=60 mL/min/1. 73 m2 Comment: [...] reviewed 2021. Blood 06/12/2024 11:3 9 AM LINUX NETWORK SYSTEMS ADMINISTRATOR 06/12/2024 11:39 AM LINUX NETWORK SYSTEMS ADMINISTRATOR us Joanna Byrne MD LAB BLOOD ORDERABLES Fi nal Result Performing Organization Address City/State/[facility] Co tn Phone Number ADDIS [address] [address] Department [place] [address] * Pro B-type natriuretic peptide (06/12/2024 11:39 AM LINUX NETWORK SYSTEMS ADMINISTRATOR) NT-proBNP 84 <=300 pg/mL Comment: Interpretive Comments: [...] Date: 2018. Blood 06/12/2024 11:3 9 AM LINUX NETWORK SYSTEMS ADMINISTRATOR 06/12/2024 11:39 AM LINUX NETWORK SYSTEMS ADMINISTRATOR us Joanna Byrne MD LAB BLOOD ORDERABLES Fi nal Result [facility] [address] [address] Department [place] [address] * (ABNORMAL) Comprehensive metabolic panel (06/12/2024 11:39 AM LINUX NETWORK SYSTEMS ADMINISTRATOR) Sodium 139 135 - 145 mmol/L Potassium, pl 4.2 3.3 - 4.9 mmol/L [facility] Chloride 105 97 - 110 mmol/L [facility] CO2 22 22 - 32 mmol/L [facility] Anion gap 12 2 - 15 mmol/L [facility] BUN 32(H) 6 - 25 mg/dL [facility] Creatinine 1.56(H) 0.80 - 1.30 mg/dL [facility] Glucose 263(H) 70 - 199 mg/dL [facility] Comment: [...] [facility] Blood 06/12/2024 11:3 9 AM LINUX NETWORK SYSTEMS ADMINISTRATOR 06/12/2024 11:39 AM LINUX NETWORK SYSTEMS ADMINISTRATOR Joanna Byrne MD LAB BLOOD ORDERABLES Counts include 234 beds at the [facility] Result ADDIS [address] [address] Department [place] [address] * ECG 12 lead (06/12/2024 11:13 AM LINUX NETWORK SYSTEMS ADMINISTRATOR) 06/12/2024 11:1 3 AM LINUX NETWORK SYSTEMS ADMINISTRATOR Narrative [facility] - 06/12/2024 10:06 PM LINUX NETWORK SYSTEMS ADMINISTRATOR Vent Rate: 62 bpm RR Interval: 964 msec [place] Interval: 187 msec QRS Duration: 170 msec QT Interval: 405 msec QTC Interval: 410 msec P-R-T [place]: 48 - -41 - 68 degrees IMPRESSION: SINUS RHYTHM RIGHT BUNDLE BRANCH BLOCK ANTEROSEPTAL MYOCARDIAL INFARCTION , PROBABLY RECENT Electronically Signed By: Will Barahona MD, [facility] Joanna Byrne MD ECG ORDERABLES Final R esult [facility] * (ABNORMAL) Albumin Creatinine Ratio, Urine (01/22/2023 2:40 PM CDT) Albumin Ur 316.7 mg/L [facility] ([place]) Comment: Interpretive Data No reference range established. Current interpretive data was last revised 2018. Testing performed by: [facility], [address] [place] [address]., [address] Creatinine Ur 124.7 mg/dL [facility] ([place]) Comment: Interpretive Data No reference range established. Current interpretive data was last revised 2018. Testing performed by: [facility], [address] [place] [address]., [address] Albumin Creatinine Ratio, Ur 254(H) 1 - 29 mg/g [facility] ([place]) Comment:Testing performed by : [address] [address] Urine 01/22/2023 2:40 PM CDT 01/22/2023 7:15 PM CDT us Sweta Wilson NP LAB URINE ORDERABLES Final Resu lt Performing Organization Address City/[facility]/ZIP Co de Phone Number [facility] ([place]) [address] [facility] [place] [address] from Last 3 Months or Most Recently Relevant to Health Maintenance Insurance [facility] [employer] [place] [facility] [employer] [facility] H[facility]/PPO Address: [place] [address] Advance Directives For more information, please contact: [phone] * Full Code (Latest Code Status on [...] 12:44 AM 03/09/2021 10:25 PM Care Teams Lapidarist Relationship Specialty Start Date End Date Medhat Benton MD [address] [facility] [place] [address] PCP - General Family Medicine 12/04/21 Constantine Bardales MD [address] [place] [address] Consulting Physician Cardiology 06/14/24
== END 2024-08-10 15:23 | disposition home or self-care (01) ==
PROVIDERS: Emergency Provider Nurse Practitioner; PCP Family Medicine
DX: J32.9 Chronic sinusitis, unspecified (principal); Z20.822 Contact with and (suspected) exposure to COVID-19; I25.10 Atherosclerotic heart disease of native coronary artery without angina pectoris; E78.5 Hyperlipidemia, unspecified; I10 Essential (primary) hypertension; E11.9 Type 2 diabetes mellitus without complications; Z79.84 Long term (current) use of oral hypoglycemic drugs; Z79.4 Long term (current) use of insulin; Z95.5 Presence of coronary angioplasty implant and graft; Z79.82 Long term (current) use of aspirin
CPT/HCPCS: 87426; 87804; 99213; G0463